=== PATIENT | male | born 1965 | race African-American/Black ===

== ENCOUNTER → 2017-10-26 12:50 | Outpatient (CLI) | payer MEDICARE, MEDICAID, SELFPAY ==
--- NOTE | 2017-10-26 13:00 | MR_ITS ---
MR cervical spine wo con HISTORY: Neck pain and left arm pain ORDERING PHYSICIAN: Morro Fortune MD PATIENT AGE: 52 years COMPARISON: None TECHNIQUE: Standard multiplanar multiecho sequences are performed without contrast. 3-D MIP and myelographic images are also rendered and reviewed FINDINGS: There is normal alignment. There is slight reversal of the cervical lordosis which may be due to patient positioning or muscle spasm. The craniocervical junction has an unremarkable appearance. C2-C3: Unremarkable. C3-C4: Degenerative disc disease with small central disc protrusion with prominent posterior longitudinal ligament and narrowing of the canal at 7 mm with mild impingement upon the anterior right aspect of the cord. There is mild left foraminal narrowing. C4-C5: Mild degenerative disc disease. There is bulging disc with a small right paracentral disc osteophyte complex with moderate narrowing of the right lateral recess and mild impingement upon the anterior right aspect of the cord. There is narrowing of the canal is 10 mm and there is mild bilateral foraminal narrowing. C5-C6: Degenerative disc disease with bulging disc and a small central disc protrusion/herniation abutting the anterior aspect of the cord with narrowing of the canal at 9 to 10 mm. This is associated with prominence of the posterior longitudinal ligament. C6-C7: Prominent posterior longitudinal ligament with small central disc protrusion with mild narrowing of the canal at 10 mm. C7-T1: Unremarkable. IMPRESSION: 1. Abnormal MRI of the cervical spine with cervical spondylosis with multilevel prominence of the posterior longitudinal ligament and disc protrusions with resultant narrowing of the canal and impingement upon the cord. 2. C3-C4: Degenerative disc disease with small central disc protrusion with prominent posterior longitudinal ligament and narrowing of the canal at 7 mm with mild impingement upon the anterior right aspect of the cord. There is mild left foraminal narrowing. 3. C4-C5: Mild degenerative disc disease. There is bulging disc with a small right paracentral disc osteophyte complex with moderate narrowing of the right lateral recess and mild impingement upon the anterior right aspect of the cord. There is narrowing of the canal is 10 mm and there is mild bilateral foraminal narrowing. 4. C5-C6: Degenerative disc disease with bulging disc and a small central disc protrusion/herniation abutting the anterior aspect of the cord with narrowing of the canal at 9 to 10 mm. This is associated with prominence of the posterior longitudinal ligament. 5. C6-C7: Prominent posterior longitudinal ligament with small central disc protrusion with mild narrowing of the canal at 10 mm.
== END ==
PROVIDERS: Family Provider Emergency Medicine; PCP Emergency Medicine; Visit Provider Emergency Medicine
DX: M54.2 Cervicalgia (principal)
CPT/HCPCS: 72141

== ENCOUNTER → 2017-11-04 11:34 | Outpatient (REF) | payer MEDICARE, MEDICAID, SELFPAY ==
[2017-11-04 13:10] LABS: Amphetamine/Metha Screen,Urine Negative ng/mL (<1000); Barbiturates Screen,Urine Negative ng/mL (<200); Benzodiazepines Screen,Urine Negative ng/mL (200); Cannabinoid Screen,Urine Negative ng/mL (<50); Cocaine Screen,Urine Negative ng/g (<300); Methadone Screen,Urine Negative ng/mL (<300); Opiate Screen,Urine Positive ng/mL (<300); Phencyclidine Screen,Urine Negative ng/mL (<25)
== END ==
LOC: LAB 11:34
PROVIDERS: Visit Provider Emergency Medicine
DX: Z79.899 Other long term (current) drug therapy (principal)
CPT/HCPCS: 80305

== ENCOUNTER → 2017-11-14 08:57 | Outpatient (POV) | payer MEDICARE, MEDICAID, SELFPAY ==
[2017-11-14 09:30] VITALS: BP 129/78; PULSE 82; RESP 16; TEMP 36.1; O2SAT 98; BMI 36.1
--- NOTE | 2017-11-14 10:26 | HMH.PMCON ---
Assessment and Plan (1) Lumbosacral radiculopathy due to degenerative joint disease of spine Current visit: Yes Status: Chronic Category: Medical Code(s): M47.27 - Other spondylosis with radiculopathy, lumbosacral region (2) Degenerative joint disease (DJD) of lumbar spine Current visit: Yes Status: Chronic Qualifiers: Spinal osteoarthritis complication: with radiculopathy Qualified Code(s): M47.26 - Other spondylosis with radiculopathy, lumbar region Category: Medical Code(s): M47.816 - Spondylosis without myelopathy or radiculopathy, lumbar region - Assessment and plan all Dx Assessment and Plan for all problems:: We have offered lumbar epidural steroid injections. Patient is not interested in any interventional therapy. He is afraid of injections and is going to think about it and let us know. Follow-up with him on a as needed basis. We will not prescribe him any oral narcotics at this time. HPI - Data of Consult Patient: known to practice within the last 3 years Consult date: 11/14/17 Requesting Physician: Jatin Davila MD Primary Care Provider: Morro Fortune MD Family Provider: Morro Fortune MD - Consult Narrative Reason for consult: Back pain with lumbar radicular symptoms History of present illness: Mr. Reeves is a 52 year old male who we previously saw in the pain clinic in July 2015. At that time he had low back pain radiating to both hips and down his legs. We did offer him injections at that time and he did not return to our clinic. He again has low back pain radiating down both legs. His MRI from June 2017 shows degenerative changes with bulging disc at L2-L3, L3-L4, L4-L5 and L5-S1. It is thought that he may benefit from lumbar epidural steroid injections again. I have talked to the patient about pursuing these injections and again he is afraid of not wishing to pursue injections at this time. Pain score is a 9 out of 10. Patient has not tried physical therapy recently. CC: Jatin Davila MD [facility] History Medical History: Reports:: Diabetes Mellitus Type 2, Hyperlipidemia, Hypertension Denies:: Cancer, Diabetes Mellitus Type 1, Internal Pacemaker, MRSA Other Surgeries: No: Pacemaker Amputation: Yes (2nd and 3rd toes on lft foot) Fractures: No - *Social History Educational Level: Completed High School Smoking Status: Current every day smoker Tobacco Type: cigarettes # Packs/Day (cigarettes): 1 #Yrs smoked (if former smoker): 20 Alcohol Intake: never Occupational Status: disabled Housing: house Household Members: none - Psychiatric History Expresses thoughts of harming self/others: None Suicide Plan Description: No Plan *Family Hx:: Stroke, Heart Attack, Hypertension, Diabetes Review of Systems - Review of Systems Review of systems:: pertinent systems reviewed and negative unless documented below - *Musculoskeletal Reports joint pain, Reports back pain, Reports radiating pain into limb, Reports stiffness, Reports tingling - *Neurologic Reports radiating pain Meds Home Medications Medication Instructions Recorded Confirmed Type aspirin 81 mg tablet,delayed 81 mg PO QDAY 11/04/17 History release atorvastatin 80 mg tablet 80 mg PO QDAY 11/04/17 History budesonide-formoterol HFA 160 2 puff INHALATION Q12H 11/04/17 History mcg-4.5 mcg/actuation aerosol inhaler bupropion HCl 75 mg tablet 75 mg PO BID tab 11/04/17 History clopidogrel 75 mg tablet 75 mg PO ONCE 11/04/17 History fenofibrate micronized 134 mg 134 mg PO ONCE 11/04/17 History capsule furosemide 40 mg tablet 60 mg PO BID tab 11/04/17 History hydroxyzine pamoate 25 mg capsule 25 mg PO QHS PRN cap 11/04/17 History insulin lispro protamine-lispro See Label Instructions SUB-Q BID 11/04/17 History 100 unit/mL (75-25) subcutaneous ml susp potassium chloride ER 20 mEq 20 meq PO BID 11/04/17 History tablet,extended release tiotropium bromide 18 mcg ca
--- NOTE | 2017-11-14 10:29 | P.CONS_ITS ---
Assessment and Plan (1) Lumbosacral radiculopathy due to degenerative joint disease of spine Current visit: Yes Status: Chronic Category: Medical Code(s): M47.27 - Other spondylosis with radiculopathy, lumbosacral region (2) Degenerative joint disease (DJD) of lumbar spine Current visit: Yes Status: Chronic Qualifiers: Spinal osteoarthritis complication: with radiculopathy Qualified Code(s): M47.26 - Other spondylosis with radiculopathy, lumbar region Category: Medical Code(s): M47.816 - Spondylosis without myelopathy or radiculopathy, lumbar region - Assessment and plan all Dx Assessment and Plan for all problems:: We have offered lumbar epidural steroid injections. Patient is not interested in any interventional therapy. He is afraid of injections and is going to think about it and let us know. Follow-up with him on a as needed basis. We will not prescribe him any oral narcotics at this time. HPI - Data of Consult Patient: known to practice within the last 3 years Consult date: 11/14/17 Requesting Physician: Jatin Davila MD Primary Care Provider: Morro Fortune MD Family Provider: Morro Fortune MD - Consult Narrative Reason for consult: Back pain with lumbar radicular symptoms History of present illness: Mr. Reeves is a 52 year old male who we previously saw in the pain clinic in July 2015. At that time he had low back pain radiating to both hips and down his legs. We did offer him injections at that time and he did not return to our clinic. He again has low back pain radiating down both legs. His MRI from June 2017 shows degenerative changes with bulging disc at L2-L3, L3-L4 , L4-L5 and L5-S1. It is thought that he may benefit from lumbar epidural steroid injections again. I have talked to the patient about pursuing these injections and again he is afraid of not wishing to pursue injections at this time. Pain score is a 9 out of 10. Patient has not tried physical therapy recently. CC: Jatin Davila MD [facility] History Medical History: Reports:: Diabetes Mellitus Type 2, Hyperlipidemia, Hypertension Denies:: Cancer, Diabetes Mellitus Type 1, Internal Pacemaker, MRSA Other Surgeries: No: Pacemaker Amputation: Yes (2nd and 3rd toes on lft foot) Fractures: No - *Social History Educational Level: Completed High School Smoking Status: Current every day smoker Tobacco Type: cigarettes # Packs/Day (cigarettes): 1 #Yrs smoked (if former smoker): 20 Alcohol Intake: never Occupational Status: disabled Housing: house Household Members: none - Psychiatric History Expresses thoughts of harming self/others: None Suicide Plan Description: No Plan *Family Hx:: Stroke, Heart Attack, Hypertension, Diabetes Review of Systems - Review of Systems Review of systems:: pertinent systems reviewed and negative unless documented below - *Musculoskeletal Reports joint pain, Reports back pain, Reports radiating pain into limb, Reports stiffness, Reports tingling - *Neurologic Reports radiating pain Meds Home Medications Medication Instructions Recorded Confirmed Type aspirin 81 mg tablet,delayed 81 mg PO QDAY 11/04/17 History release atorvastatin 80 mg tablet 80 mg PO QDAY 11/04/17 History budesonide-formoterol HFA 160 2 puff INHALATION Q12H 11/04/17 History mcg-4.5 mcg/actuation aerosol inhaler bupropion HCl 75 mg tablet 75 mg PO BID tab 11/04/17 History clopidogrel 75 mg tablet 75 mg PO ONCE 11/04/17 Hi
== END ==
PROVIDERS: Family Provider Emergency Medicine; PCP Emergency Medicine; Visit Provider Anesthesiology
DX: M47.27 Other spondylosis with radiculopathy, lumbosacral region (principal); M47.26 Other spondylosis with radiculopathy, lumbar region
CPT/HCPCS: 99202

== ENCOUNTER 2017-11-16 11:43 | Emergency (ER) | payer MEDICARE, MEDICAID, SELFPAY ==
[2017-11-16 11:47] VITALS: BP 178/110; PULSE 80; RESP 24; TEMP 36.5; O2SAT 97; BMI 36.5
--- NOTE | 2017-11-16 12:29 | HMH.EDGENADL ---
ED Disposition Clinical Impression: Cervical radiculopathy Disposition: Home, Self-Care Condition on Discharge: Fair Instructions: DI for Cervical Radiculopathy Additional Instructions: Continue Lortab for pain. Take Mobic as prescribed. See Dr. Fortune in his office on 11/18/17 at 1 PM. Prescriptions: Meloxicam [Mobic 7.5mg Tab] 7.5 mg PO BID #6 tab Referrals: Morro Fortune MD [Primary Care Provider] - - Critical Care Critical Care Time: No Attestation: On 11/16/17, the high probability of a clinically significant, sudden or life threatening deterioration of the following system(s) required my full and direct attention, intervention and personal management. The time I documented below is in addition to time spent performing reported procedures but includes the following listed in this critical care notation. Medical Decision Making Vital Signs: 11/16/17 11:47 Temperature 97.7 F Temperature Source Oral Pulse Rate [Right Brachial] 80 Respiratory Rate 24 Blood Pressure [Right Arm] 178/110 Blood Pressure Mean [Right Arm] 132 Blood Pressure Source [Right Arm] Automatic Cuff Blood Pressure Position [Right Arm] Sitting 02 Sat by Pulse Oximetry 97 Oxygen Delivery Method Room Air - Marcial Inquiry Pt receiving controlled substance: No Marcial was queried for this patient: Yes Reference #:: [id number] Comment: 16 rxs. last rx 90 norco on 11/04/17. Medical Decision Making Narrative: 12:45 PM: Discussed with Dr. Fortune. He requests that the patient be started on Mobic for the next 2 days and he will see the patient in his office at 1 PM on Tuesday, 2 days from now. Patient informed of this. Dr. Fortune does not want to change his pain medications at this time. General Adult HPI - General Chief complaint: PAIN Stated complaint: left shoulder pain Mode of Arrival: Ambulatory Limitations: Physical Limitations Description of Symptoms (Recalled from ER Triage Doc. by RN): left arm pain with decrease of ROM - History of Present Illness HPI narrative: Patient complains of pain from the left side of his neck down to his left elbow for 6 months. It is a constant pain, it worsens when he moves his neck, particularly extending it or tilting it to the left. He denies numbness or weakness of the arms. He has been seeing Dr. Fortune. He says he has a referral to a neurosurgeon to be seen on 12/08/17. He says he has had an MRI. He also has chronic low back pain. He is on Lortab 5 mg 3 times a day, but says it is not helping. He is also on gabapentin. He says Dr. Fortune does not want him on steroids because of his diabetes. He did not call Dr. Fortune today, says he just came straight to the emergency room. - Related Data Home Medications Medication Instructions Recorded Confirmed aspirin 81 mg tablet,delayed 81 mg PO QDAY 11/04/17 release atorvastatin 80 mg tablet 80 mg PO QDAY 11/04/17 budesonide-formoterol HFA 160 2 puff INHALATION Q12H 11/04/17 mcg-4.5 mcg/actuation aerosol inhaler bupropion HCl 75 mg tablet 75 mg PO BID tab 11/04/17 clopidogrel 75 mg tablet 75 mg PO ONCE 11/04/17 fenofibrate micronized 134 mg 134 mg PO ONCE 11/04/17 capsule furosemide 40 mg tablet 60 mg PO BID tab 11/04/17 hydroxyzine pamoate 25 mg capsule 25 mg PO QHS PRN cap 11/04/17 insulin lispro protamine-lispro See Label Instructions SUB-Q BID 11/04/17 100 unit/mL (75-25) subcutaneous ml susp potassium chloride ER 20 mEq 20 meq PO BID 11/04/17 tablet,extended release tiotropium bromide 18 mcg capsule 1 cap INHALATION QDAY 11/04/17 with inhalation device Previous Rx's Medication Instructions Recorded benzonatate 100 mg capsule 100 mg PO TID PRN 10 Days #30 cap 11/04/17 gabapentin 800 mg tablet 800 mg PO TID 30 Days #90 tab 11/04/17 hydrocodone 5 mg-acetaminophen 325 1 tab PO BID 30 Days #60 tab 11/04/17 mg tablet Meloxicam [Mobic 7.5mg Tab] 7.5 mg PO BID #6 tab 11/16/17
[2017-11-16 12:51] VITALS: BP 172/88; PULSE 81; RESP 16; O2SAT 98
[2017-11-16 12:54] VITALS: BP 172/88; PULSE 82; O2SAT 97
== END 2017-11-16 13:00 | disposition home or self-care (01) ==
PROVIDERS: Emergency Provider Emergency Medicine; Family Provider Emergency Medicine; PCP Emergency Medicine
DX: M54.12 Radiculopathy, cervical region (principal); E11.9 Type 2 diabetes mellitus without complications; Z79.02 Long term (current) use of antithrombotics/antiplatelets; Z79.82 Long term (current) use of aspirin; Z79.4 Long term (current) use of insulin; Z79.899 Other long term (current) drug therapy; E78.5 Hyperlipidemia, unspecified; I10 Essential (primary) hypertension; Z89.422 Acquired absence of other left toe(s); F17.210 Nicotine dependence, cigarettes, uncomplicated
CPT/HCPCS: 99282

== ENCOUNTER 2017-12-02 11:08 | Emergency (ER) | payer MEDICARE, MEDICAID, SELFPAY ==
[2017-12-02 11:15] VITALS: BP 154/74; PULSE 83; RESP 16; TEMP 37.2; O2SAT 98; BMI 39.9
--- NOTE | 2017-12-02 11:31 | HMH.EDGENADL ---
ED Disposition Clinical Impression: Neck pain, Thyromegaly Disposition: Home, Self-Care Condition on Discharge: Good Instructions: DI for Neck Pain Additional Instructions: Follow-up with Dr. Fortune in the office for further evaluation and treatment. Referrals: Morro Fortune MD [Primary Care Provider] - - Critical Care Critical Care Time: No Attestation: On 12/02/17, the high probability of a clinically significant, sudden or life threatening deterioration of the following system(s) required my full and direct attention, intervention and personal management. The time I documented below is in addition to time spent performing reported procedures but includes the following listed in this critical care notation. Medical Decision Making Vital Signs: 12/02/17 11:15 Temperature 99.0 F Temperature Source Oral Pulse Rate [Right] 83 Respiratory Rate 16 Blood Pressure [Right Arm] 154/74 Blood Pressure Mean [Right Arm] 100 Blood Pressure Source [Right Arm] Automatic Cuff Blood Pressure Position [Right Arm] Supine 02 Sat by Pulse Oximetry 98 Oxygen Delivery Method Room Air - CT Data CT Scan: Other (Neck) Time Received: 12:[address] Reviewed: Yes: I have viewed the radiologist's interpretation Findings Narrative: Mild prominence of the adenoids. No obvious adenopathy or abscess. Thyromegaly. - Marcial Inquiry Pt receiving controlled substance: No Medical Decision Making Narrative: 11:50 AM: Discussed with Dr. Fortune. The patient has poor renal function. The patient also refuses an IV. He requests that the patient have a noncontrast CT scan of his neck soft tissue to evaluate for mass. He also request that I checked to see if Dr. Dumont can see the patient in specialty clinic today. I spoke with Dr. Dumont, he says he cannot fit him in today but will see him next week. General Adult HPI - General Chief complaint: Neck Pain/Injury Stated complaint: 11/30/17 Tong sent for cat scan swelling neck Mode of Arrival: Ambulatory Limitations: Physical Limitations Description of Symptoms (Recalled from ER Triage Doc. by RN): neck and left arm pain from a pain from a pinched nerve. Dr. Fortune advised pt to come to er for xrays - History of Present Illness HPI narrative: The patient states that he has been sent to the emergency department by Dr. Fortune to get a CT scan of his neck. He says that he saw him in the office a couple of days ago and was told to come to the emergency room, but could not make it until today. He says he has been having pain in his neck going down his left arm for months, tingling of his left index finger and thumb for a week or so. He is seeing a specialist about cervical disc disease, but now also has a sensation of a mass in his neck and trouble swallowing for more than a week. No fever. Dr. Fortune was concerned about a soft tissue mass. - Related Data Home Medications Medication Instructions Recorded Confirmed aspirin 81 mg tablet,delayed 81 mg PO QDAY 11/04/17 release atorvastatin 80 mg tablet 80 mg PO QDAY 11/04/17 budesonide-formoterol HFA 160 2 puff INHALATION Q12H 11/04/17 mcg-4.5 mcg/actuation aerosol inhaler bupropion HCl 75 mg tablet 75 mg PO BID tab 11/04/17 clopidogrel 75 mg tablet 75 mg PO ONCE 11/04/17 fenofibrate micronized 134 mg 134 mg PO ONCE 11/04/17 capsule furosemide 40 mg tablet 60 mg PO BID tab 11/04/17 hydroxyzine pamoate 25 mg capsule 25 mg PO QHS PRN cap 11/04/17 insulin lispro protamine-lispro See Label Instructions SUB-Q BID 11/04/17 100 unit/mL (75-25) subcutaneous ml susp potassium chloride ER 20 mEq 20 meq PO BID 11/04/17 tablet,extended release tiotropium bromide 18 mcg capsule 1 cap INHALATION QDAY 11/04/17 with inhalation device Previous Rx's Medication Instructions Recorded gabapentin 800 mg tablet 800 mg PO TID 30 Days #90 tab 11/04/17 Meloxicam [Mobic 7.5mg Tab] 7.5 mg PO BID #6 tab
--- NOTE | 2017-12-02 11:50 | CT_ITS ---
CT soft tissue neck wo con INDICATION: Probable swallowing, neck pain, difficulty swallowing ITS.REASON: r/o mass, sensation of swelling, trouble swallowin ORDERING PHYSICIAN: Dennis Osborne MD PATIENT AGE: 52 years COMPARISON: None TECHNIQUE: Axial images are obtained without contrast. Sagittal and coronal reformatted images are reviewed as well. FINDINGS: There is mild prominence of the soft tissues at the nasopharyngeal region and adenoid area. No focal mass apparent. No abnormal fluid collection. No evidence of cervical adenopathy. The thyroid gland is slightly enlarged left more so than right with the left lobe measuring 6 x 2.4 cm in the right lobe measuring 5.5 x 2 cm. The epiglottis and glottic region are unremarkable. Submandibular glands and parotid glands have an unremarkable appearance. Mild spondylosis of the cervical spine. Upper thoracic images show centrilobular emphysema IMPRESSION: 1. Mild prominence of the adenoids in the soft tissues in the nasopharyngeal region. Consider direct visualization. Further evaluation could be obtained with contrast clinically warranted. 2. No obvious adenopathy or abscess 3. Thyromegaly 4. Centrilobular emphysematous change
[2017-12-02 13:14] VITALS: BP 152/75; PULSE 82; RESP 18; TEMP 36.7; O2SAT 98
== END 2017-12-02 13:15 | disposition home or self-care (01) ==
PROVIDERS: Emergency Provider Emergency Medicine; Family Provider Emergency Medicine; PCP Emergency Medicine
DX: M54.2 Cervicalgia (principal); E01.0 Iodine-deficiency related diffuse (endemic) goiter; E11.9 Type 2 diabetes mellitus without complications; Z79.4 Long term (current) use of insulin; I10 Essential (primary) hypertension; Z95.1 Presence of aortocoronary bypass graft; F17.210 Nicotine dependence, cigarettes, uncomplicated
CPT/HCPCS: 70490; 99281; 99291

== ENCOUNTER → 2017-12-08 14:01 | Outpatient (POV) | payer MEDICARE, MEDICAID, SELFPAY | PROVIDERS: Family Provider Emergency Medicine; PCP Emergency Medicine; Visit Provider Neurological Surgery | DX: Z00.00 Encounter for general adult medical examination without abnormal findings (principal) ==

== ENCOUNTER 2017-12-23 10:30 | Outpatient (RCR) | payer MEDICARE, MEDICAID, SELFPAY ==
--- NOTE | 2017-12-23 11:08 | HMH.PTOPEV ---
Rehab Outpatient Evaluation Rehab OP Evaluation Start: 12/14/17 10:37 Freq: Status: Active Protocol: Document 12/14/17 10:38 RASHID (Rec: 12/14/17 10:59 RASHID [id number]) Electronically Signed By Charlie Rasheed, PT 12/14/17 10:38 Outpatient Therapy Subjective History Subjective History Pt reports insidious onset neck pain beginning in 2017, L > R sided neck pain with intermittent radicular s/ s from L shoulder area to L hand. Pt reports pain, N&T, and weakness in L UE. Chief Complaint Pain Stiff Paresthesia Weakness Symptom Type Ache Throb Sharp Dull Stabbing Burning Numbness Tingling Symptoms Relieved By Rest/Positioning Symptoms Aggravated By Physical Activity Lifting Prior Functional Limitations None Current Functional Limitations Reaching Lifting Housework Driving Symptom Description Constant but Variable Level of pain today (0-10) 9 Pain scale - at its best (0-10) 5 Pain scale - at its worst (0-10) 10 Cervical Eval Palpation Cervical Muscles L Cervical Paraspinal L CT Junction L Upper Trapezius Cervical/Thoracic Palpation Findings Tenderness Posture Head/C-Spine Posture Sitting Position Flexed Head/C-Spine Posture Standing Position Flexed Flexibility Deficits Upper Trapezius Muscle Length (L) Moderate Tightness Scalene Group Muscle Length (L) Moderate Tightness Passive Joint Mobility Cervical PIVM Dec: R C3/4 L C3/4 R C4/5 L C4/5 R C5/6 L C5/6 R C6/7 L C6/7 WNL: R OA L OA R AA L AA R C2/3 L C2/3 R C7/T1
== END 2017-12-23 10:31 | disposition home or self-care (01) ==
LOC: PT 10:30
PROVIDERS: Family Provider Emergency Medicine; PCP Emergency Medicine; Visit Provider Neurological Surgery
DX: M54.2 Cervicalgia (principal)
CPT/HCPCS: 97010; 97012; 97014; 97035; 97110; G0283

== ENCOUNTER → 2018-01-02 15:15 | Outpatient (REF) | payer MEDICARE, MEDICAID, SELFPAY ==
[2018-01-02 19:16] LABS: Amphetamine/Metha Screen,Urine Negative ng/mL (<1000); Barbiturates Screen,Urine Negative ng/mL (<200); Benzodiazepines Screen,Urine Negative ng/mL (200); Cannabinoid Screen,Urine Positive ng/mL (<50); Cocaine Screen,Urine Negative ng/g (<300); Methadone Screen,Urine Negative ng/mL (<300); Opiate Screen,Urine Negative ng/mL (<300); Phencyclidine Screen,Urine Negative ng/mL (<25)
== END ==
LOC: LAB 15:15
PROVIDERS: Visit Provider Emergency Medicine
DX: M47.27 Other spondylosis with radiculopathy, lumbosacral region (principal); Z79.899 Other long term (current) drug therapy
CPT/HCPCS: 80305

== ENCOUNTER 2018-01-08 14:39 | Emergency (ER) | payer MEDICARE, MEDICAID, SELFPAY ==
[2018-01-08 14:46] VITALS: BP 130/84; PULSE 82; RESP 18; TEMP 37.6; O2SAT 95; BMI 40.3
--- NOTE | 2018-01-08 14:57 | XR_ITS ---
XR foot LT min 3V COMPARISON: Left foot 01/16/2017 HISTORY: Left foot pain, known diabetic TECHNIQUE: AP lateral and oblique views FINDINGS: There is been previous appendectomy dictation of the great toe and second toe and most of the third toe leaving only the base of the proximal phalanx in place. There is soft tissue swelling about the distal phalanx of the fourth toe but this was noted previously as well. There is no abnormal periosteal reaction. There is some mild soft tissue swelling of the forefoot especially along the volar aspect when compared to the previous study and possibly this could be due to cellulitis. IMPRESSION: Postsurgical changes in this known diabetic mild diffuse soft tissue swelling of the forefoot noted.
--- NOTE | 2018-01-08 14:58 | HMH.EDLOEX ---
ED Disposition Clinical Impression: Diabetic foot, Renal insufficiency Disposition: Home, Self-Care Condition on Discharge: Fair Instructions: DI for Skin Abscess Additional Instructions: 1- rest. 2- elevate. 3- start abx. 4- see Dr Luis tomorrow at 7:30 am . Prescriptions: Ciprofloxacin HCl [Ciprofloxacin 750mg Tab] 750 mg PO BID #14 tab Clindamycin HCl [Clindamycin 300mg Cap] 300 mg PO Q8 #21 cap levoFLOXacin [Levaquin 500mg tab] 500 mg PO DAILY #15 tab Referrals: Morro Fortune MD [Primary Care Provider] - Claudia Clemente DPM [Physician] - - Critical Care Critical Care Time: No Attestation: On 01/08/18, the high probability of a clinically significant, sudden or life threatening deterioration of the following system(s) required my full and direct attention, intervention and personal management. The time I documented below is in addition to time spent performing reported procedures but includes the following listed in this critical care notation. Medical Decision Making - Marcial Inquiry Pt receiving controlled substance: No Marcial was queried for this patient: No Vital Signs: 01/08/18 14:46 Temperature 99.7 F H Temperature Source Oral Pulse Rate [Right Radial] 82 Respiratory Rate 18 Blood Pressure [Right Arm] 130/84 Blood Pressure Mean [Right Arm] 99 Blood Pressure Source [Right Arm] Automatic Cuff Blood Pressure Position [Right Arm] Sitting 02 Sat by Pulse Oximetry 95 Oxygen Delivery Method Room Air - Lab Data Lab Results 01/08/18 15:47: WBC 9.6, RBC 4.01 L, Hgb 11.9 L, Hct 37.3 L, MCV 93.0, MCH 29.6, MCHC 31.8, RDW 14.0, Plt Count 325, MPV 8.8, Neut % (Auto) 68.0, Lymph % (Auto) 22.4, [place] % (Auto) 6.2, Eos % (Auto) 3.1, Baso % (Auto) 0.3, Neut # (Auto) 6.6, Lymph # (Auto) 2.2, [place] # (Auto) 0.6, Eos # (Auto) 0.3, Baso # (Auto) 0.0 01/08/18 15:47: Sodium 140, Potassium 4.3, Chloride 105, Carbon Dioxide 27, Anion Gap 12.3, BUN 20 H, Creatinine 1.38 H, Estimated Creat Clear 102, Estimated GFR 54 L, Est GFR ( Amer) 66, Glucose 259 H, C-Reactive Protein 6.8 H Result diagrams: 01/08/18 15:47 01/08/18 15:47 Orders (Tests/Meds): ORDERS Category Date Time Status Wound Culture and Gram Stain Stat Micro 01/08/18 16:32 Ordered - Radiology Data #1 Image(s): Foot/Toes Image Reviewed: Yes I reviewed the patient's radiology image Preliminary Findings: Abnormal s/p amputation , no subcutaneous air, no FB. - Core Measures Clinical Trial Participant: No AMI core measures followed: No Medical Decision Narrative: The patient remained stable, underwent labs close to his base line, x ray of foot free of of sc air. I called Dr Luis his human factors scientist and discussed his follow up care. Dr. Roland recommended wound culture, start Cipro 750 twice daily and clindamycin 300 3 times daily. She will see him at 7:30 in the morning 01/09/18. Lower Extremity Injury HPI - General Chief Complaint: Skin/Abscess/Foreign Body Stated Complaint: pt had 3 toes removes now is draining Time Seen by Provider: 01/08/18 15:50 Mode of Arrival: Ambulatory Limitations: No Limitations Description of Symptoms (Recalled from ER Triage Doc. by RN): LEFT GREAT TOE, SECOND AND THIRD TOE AMPUTATED ONE YEAR AGO. TWO DAYS AGO AREA WHERE SECOND TWO WAS AMPUTATED STARTED TO SWELL AND TODAY THE AREA STARTED TO DRAIN. PT SEEN A DOCTOR A MONTH AGO WHO CUT AN AREA OF THE SKIN OFF. 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 He developed swelling 2 days ago of the left foot and he kept it elevated and the swelling came down. Today while he was in the store the skin broke loose and a purulent discharge started oozing. Patient came to the ED for evaluation. He denies fever or chills abnormal swelling shortness of breath chest pain nausea or vomiting. He
--- NOTE | 2018-01-08 15:01 | ED_ITS ---
ED Disposition Clinical Impression: Diabetic foot, Renal insufficiency Disposition: Home, Self-Care Condition on Discharge: Fair Instructions: DI for Skin Abscess Additional Instructions: 1- rest. 2- elevate. 3- start abx. 4- see Dr Luis tomorrow at 7:30 am . Prescriptions: Ciprofloxacin HCl [Ciprofloxacin 750mg Tab] 750 mg PO BID #14 tab Clindamycin HCl [Clindamycin 300mg Cap] 300 mg PO Q8 #21 cap levoFLOXacin [Levaquin 500mg tab] 500 mg PO DAILY #15 tab Referrals: Morro Fortune MD [Primary Care Provider] - Claudia Clemente DPM [Physician] - - Critical Care Critical Care Time: No Attestation: On 01/08/18, the high probability of a clinically significant, sudden or life threatening deterioration of the following system(s) required my full and direct attention, intervention and personal management. The time I documented below is in addition to time spent performing reported procedures but includes the following listed in this critical care notation. Medical Decision Making - Marcial Inquiry Pt receiving controlled substance: No Marcial was queried for this patient: No Vital Signs: 01/08/18 14:46 Temperature 99.7 F H Temperature Source Oral Pulse Rate [Right Radial] 82 Respiratory Rate 18 Blood Pressure [Right Arm] 130/84 Blood Pressure Mean [Right Arm] 99 Blood Pressure Source [Right Arm] Automatic Cuff Blood Pressure Position [Right Arm] Sitting 02 Sat by Pulse Oximetry 95 Oxygen Delivery Method Room Air - Lab Data Lab Results 01/08/18 15:47: WBC 9.6, RBC 4.01 L, Hgb 11.9 L, Hct 37.3 L, MCV 93.0, MCH 29.6 , MCHC 31.8, RDW 14.0, Plt Count 325, MPV 8.8, Neut % (Auto) 68.0, Lymph % (Auto ) 22.4, [place] % (Auto) 6.2, Eos % (Auto) 3.1, Baso % (Auto) 0.3, Neut # (Auto) 6.6, Lymph # (Auto) 2.2, [place] # (Auto) 0.6, Eos # (Auto) 0.3, Baso # (Auto) 0.0 01/08/18 15:47: Sodium 140, Potassium 4.3, Chloride 105, Carbon Dioxide 27, Anion Gap 12.3, BUN 20 H, Creatinine 1.38 H, Estimated Creat Clear 102, Estimated GFR 54 L, Est GFR ( Amer) 66, Glucose 259 H, C-Reactive Protein 6.8 H Result diagrams: 01/08/18 15:47 01/08/18 15:47 Orders (Tests/Meds): ORDERS Category Date Time Status Wound Culture and Gram Stain Stat Micro 01/08/18 16:32 Ordered - Radiology Data #1 Image(s): Foot/Toes Image Reviewed: Yes I reviewed the patient's radiology image Preliminary Findings: Abnormal s/p amputation , no subcutaneous air, no FB. - Core Measures Clinical Trial Participant: No AMI core measures followed: No Medical Decision Narrative: The patient remained stable, underwent labs close to his base line, x ray of foot free of of sc air. I called Dr Luis his cashier checker and discussed his follow up care. Dr. Roland recommended wound culture, start Cipro 750 twice daily and clindamycin 300 3 times daily. She will see him at 7:30 in the morning . Lower Extremity Injury HPI - General Chief Complaint: Skin/Abscess/Foreign Body Stated Complaint: pt had 3 toes removes now is draining Time Seen by Provider: 01/08/18 15:50 Mode of Arrival: Ambulatory Limitations: No Limitations Description of Symptoms (Recalled from ER Triage Doc. by RN): LEFT GREAT TOE, SECOND AND THIRD TOE AMPUTATED ONE YEAR AGO. TWO DAYS AGO AREA WHERE SECOND TWO WAS AMPUTATED STARTED TO SWELL AND TODAY THE AREA STARTED TO DRAIN. PT SEE
[2018-01-08 16:02] LABS: Basophils % 0.3 % (0.1-2.0); Eosinophils # 0.3 K/mm3 (0.0-0.4); Eosinophils % 3.1 % (0.1-12.0); Hematocrit 37.3 % (42.0-52.0); Hemoglobin 11.9 g/dL (14.1-18.0); Lymphocytes # 2.2 K/mm3 (0.7-4.5); Lymphocytes % 22.4 K/mm3 (10-50); Mean Corpuscular HGB Conc 31.8 g/dL (31.8-35.4); Mean Corpuscular Hemoglobin 29.6 pg (27.0-31.2); Mean Platelet Volume 8.8 fl (7.4-10.4); Monocytes # 0.6 K/mm3 (0.1-1.0); Monocytes % 6.2 % (1.7-9.3); Neutrophils # 6.6 K/mm3 (1.8-7.8); Platelet Count 325 K/mm3 (142-424); Red Blood Count 4.01 M/mm3 (4.60-6.20); White Blood Count 9.6 K/mm3 (4.8-10.8)
[2018-01-08 16:05] LABS: Anion Gap 12.3 mEq/L (5-15); Blood Urea Nitrogen 20 mg/dL (7-18); C-Reactive Protein 6.8 mg/L (0.0-0.9); Carbon Dioxide 27 mmol/L (21.0-32.0); Chloride 105 mmol/L (98-107); Creatinine Clearance Estimated 102 mL/min (0-300); Creatinine,Serum 1.38 mg/dL (0.70-1.30); Estimated Glomerular Filt Rate 54 ml/min (>60); GFR (African American) 66 ML/MIN (>60); Glucose 259 mg/dL (74-106); Potassium 4.3 mmoL/L (3.5-5.1); Sodium 140 mmol/L (136-145)
[2018-01-08 16:50] VITALS: BP 130/84; PULSE 82; RESP 18; TEMP 37.6; O2SAT 97
== END 2018-01-08 16:53 | disposition home or self-care (01) ==
PROVIDERS: Emergency Provider Emergency Medicine; Family Provider Emergency Medicine; PCP Emergency Medicine
DX: E10.621 Type 1 diabetes mellitus with foot ulcer (principal); E10.65 Type 1 diabetes mellitus with hyperglycemia; N28.9 Disorder of kidney and ureter, unspecified; Z79.82 Long term (current) use of aspirin; Z79.899 Other long term (current) drug therapy; Z79.4 Long term (current) use of insulin; F17.210 Nicotine dependence, cigarettes, uncomplicated; Z90.49 Acquired absence of other specified parts of digestive tract; I10 Essential (primary) hypertension; E78.5 Hyperlipidemia, unspecified
CPT/HCPCS: 73630; 80048; 85025; 86140; 87070; 87077; 87186; 87205; 99283

== ENCOUNTER → 2018-01-09 09:35 | Outpatient (REF) | payer MEDICARE, MEDICAID, SELFPAY | LOC: LAB 09:35 | PROVIDERS: Visit Provider Podiatrist | DX: E11.621 Type 2 diabetes mellitus with foot ulcer (principal); L97.529 Non-pressure chronic ulcer of other part of left foot with unspecified severity | CPT/HCPCS: 87070; 87077; 87186 ==

== ENCOUNTER → 2018-01-31 14:32 | Outpatient (REF) | payer MEDICARE, MEDICAID, SELFPAY ==
[2018-01-31 18:41] LABS: Amphetamine/Metha Screen,Urine Negative ng/mL (<1000); Barbiturates Screen,Urine Negative ng/mL (<200); Benzodiazepines Screen,Urine Negative ng/mL (200); Cannabinoid Screen,Urine Positive ng/mL (<50); Cocaine Screen,Urine Negative ng/g (<300); Methadone Screen,Urine Negative ng/mL (<300); Opiate Screen,Urine Negative ng/mL (<300); Phencyclidine Screen,Urine Negative ng/mL (<25)
== END ==
LOC: LAB 14:32
PROVIDERS: Visit Provider Emergency Medicine
DX: Z79.899 Other long term (current) drug therapy (principal)
CPT/HCPCS: 80305

== ENCOUNTER → 2018-02-28 15:21 | Outpatient (REF) | payer MEDICARE, MEDICAID, SELFPAY ==
[2018-02-28 17:46] LABS: Microscopic, Urine URINE MICROSCOPIC (MICROSCOPIC)
[2018-02-28 18:21] LABS: Basophils # 0.1 K/mm3 (0-0.2); Basophils % 0.9 % (0.1-2.0); Eosinophils # 0.2 K/mm3 (0.0-0.4); Eosinophils % 3.6 % (0.1-12.0); Hematocrit 40.1 % (42.0-52.0); Hemoglobin 12.7 g/dL (14.1-18.0); Lymphocytes # 2.9 K/mm3 (0.7-4.5); Lymphocytes % 44.4 K/mm3 (10-50); Mean Corpuscular HGB Conc 31.7 g/dL (31.8-35.4); Mean Corpuscular Hemoglobin 29.7 pg (27.0-31.2); Mean Corpuscular Volume 93.6 fl (80-94); Mean Platelet Volume 10.1 fl (7.4-10.4); Monocytes # 0.5 K/mm3 (0.1-1.0); Monocytes % 7.4 % (1.7-9.3); Neutrophils # 2.8 K/mm3 (1.8-7.8); Neutrophils % 43.7 % (37.0-80.0); Platelet Count 282 K/mm3 (142-424); Red Blood Count 4.28 M/mm3 (4.60-6.20); Red Cell Distribution Width 14.4 % (11.5-17.5); White Blood Count 6.5 K/mm3 (4.8-10.8)
[2018-02-28 20:02] LABS: Appearance,Urine CLEAR (Clear); Bilirubin,Urine Negative (Negative); Blood, Urine TRACE-L (Negative); Color,Urine YELLOW (Yellow); Glucose,Urine (UA) 1+ (Negative); Ketones,Urine Negative (Negative); Leukocyte Esterase,Urine TRACE (Negative); Nitrate,Urine Negative (Negative); PH,Urine 5.5 (5.0-8.5); Protein,Urine Negative (Negative); Specific Gravity, Urine 1.015 (1.005-1.030); Urobilinogen,Urine 0.2 EU/dl (0.2)
[2018-02-28 20:07] LABS: Alanine Aminotransferase 25 U/L (12-78); Albumin Level 3.7 gm/dL (3.4-5.0); Albumin/Globulin Ratio 1.1 (1.1-1.8); Alkaline Phosphatase 100 U/L (46-116); Amphetamine/Metha Screen,Urine Negative ng/mL (<1000); Anion Gap 13.4 mEq/L (5-15); Aspartate Amino Transferase 18 U/L (15-37); Barbiturates Screen,Urine Negative ng/mL (<200); Benzodiazepines Screen,Urine Negative ng/mL (200); Bilirubin,Total 0.3 mg/dL (0.2-1.0); Blood Urea Nitrogen 20 mg/dL (7-18); Calcium 9.6 mg/dL (8.5-10.1); Cannabinoid Screen,Urine Positive ng/mL (<50); Carbon Dioxide 30 mmol/L (21.0-32.0); Chloride 103 mmol/L (98-107); Cocaine Screen,Urine Negative ng/g (<300); Creatinine,Serum 1.31 mg/dL (0.70-1.30); Estimated Glomerular Filt Rate 58 ml/min (>60); GFR (African American) 70 ML/MIN (>60); Globulin 3.4 gm/dl (1.3-3.2); Glucose 256 mg/dL (74-106); Methadone Screen,Urine Negative ng/mL (<300); Opiate Screen,Urine Negative ng/mL (<300); Phencyclidine Screen,Urine Negative ng/mL (<25); Potassium 4.4 mmoL/L (3.5-5.1); Sodium 142 mmol/L (136-145); Total Protein,Serum 7.1 gm/dL (6.4-8.2)
[2018-02-28 20:08] LABS: Lipase 240 u/L (73-393)
[2018-02-28 20:43] LABS: Bacteria,Urine 2+ /lpf
== END ==
LOC: LAB 15:21
PROVIDERS: Visit Provider Emergency Medicine
DX: M47.27 Other spondylosis with radiculopathy, lumbosacral region (principal); M54.9 Dorsalgia, unspecified
CPT/HCPCS: 80053; 80305; 81001; 83690; 85025; 87086; 87088; 87186

== ENCOUNTER 2018-03-03 10:56 | Outpatient (CLI) | payer MEDICARE, MEDICAID, SELFPAY ==
[2018-03-03 11:40] VITALS: BP 113/65; PULSE 68; RESP 18; TEMP 36.7
--- NOTE | 2018-03-03 11:50 | SW/DCPLANNER ---
I have provided this patient with [employer] phone number.
== END 2018-03-03 11:50 | disposition home or self-care (01) ==
LOC: INF 10:58
PROVIDERS: PCP Emergency Medicine; Visit Provider Emergency Medicine
DX: N39.0 Urinary tract infection, site not specified (principal); B96.20 Unspecified Escherichia coli [E. coli] as the cause of diseases classified elsewhere; Z16.12 Extended spectrum beta lactamase (ESBL) resistance
CPT/HCPCS: 96372; J1335

== ENCOUNTER 2018-03-04 11:10 | Outpatient (CLI) | payer MEDICARE, MEDICAID, SELFPAY ==
[2018-03-04 11:38] VITALS: BP 96/46; PULSE 72; RESP 20; TEMP 36.4; O2SAT 97
== END 2018-03-04 11:36 | disposition home or self-care (01) ==
LOC: INF 11:12
PROVIDERS: Family Provider Emergency Medicine; PCP Emergency Medicine; Visit Provider Emergency Medicine
DX: N39.0 Urinary tract infection, site not specified (principal); B96.20 Unspecified Escherichia coli [E. coli] as the cause of diseases classified elsewhere; Z16.12 Extended spectrum beta lactamase (ESBL) resistance
CPT/HCPCS: 96372; J1335

== ENCOUNTER 2018-03-05 11:54 | Outpatient (CLI) | payer MEDICARE, MEDICAID, SELFPAY ==
[2018-03-05 12:08] VITALS: BP 131/76; PULSE 72; RESP 20; TEMP 36.9; O2SAT 98
== END 2018-03-05 12:21 | disposition home or self-care (01) ==
LOC: INF 11:55
PROVIDERS: Family Provider Emergency Medicine; PCP Emergency Medicine; Visit Provider Emergency Medicine
DX: N39.0 Urinary tract infection, site not specified (principal); B96.20 Unspecified Escherichia coli [E. coli] as the cause of diseases classified elsewhere; Z16.12 Extended spectrum beta lactamase (ESBL) resistance
CPT/HCPCS: 96372; J1335

== ENCOUNTER 2018-03-06 12:24 | Outpatient (CLI) | payer MEDICARE, MEDICAID, SELFPAY ==
[2018-03-06 12:55] VITALS: BP 123/70; PULSE 68; RESP 20; TEMP 37.1; O2SAT 96
[2018-03-06 13:10] VITALS: BP 122/70; PULSE 68; RESP 20; TEMP 36.9; O2SAT 98
== END 2018-03-06 13:10 | disposition home or self-care (01) ==
LOC: INF 12:24
PROVIDERS: Family Provider Emergency Medicine; PCP Emergency Medicine; Visit Provider Emergency Medicine
DX: N39.0 Urinary tract infection, site not specified (principal); B96.20 Unspecified Escherichia coli [E. coli] as the cause of diseases classified elsewhere; Z16.12 Extended spectrum beta lactamase (ESBL) resistance
CPT/HCPCS: 96372; J1335

== ENCOUNTER 2018-03-07 12:19 | Outpatient (CLI) | payer MEDICARE, MEDICAID, SELFPAY ==
[2018-03-07 12:15] VITALS: BP 122/70; PULSE 68; RESP 20; TEMP 36.9; O2SAT 96
[2018-03-07 12:30] VITALS: BP 125/70; PULSE 68; RESP 20; TEMP 36.7; O2SAT 96
== END 2018-03-07 12:30 | disposition home or self-care (01) ==
LOC: INF 12:19
PROVIDERS: Family Provider Emergency Medicine; PCP Emergency Medicine; Visit Provider Emergency Medicine
DX: N39.0 Urinary tract infection, site not specified (principal); B96.20 Unspecified Escherichia coli [E. coli] as the cause of diseases classified elsewhere; Z16.12 Extended spectrum beta lactamase (ESBL) resistance
CPT/HCPCS: 96372; J1335

== ENCOUNTER 2018-03-08 10:00 | Outpatient (RCR) | payer MEDICARE, MEDICAID, SELFPAY ==
--- NOTE | 2018-01-19 14:30 | HMH.PTOPWND ---
Rehab Outpt Wound Evaluation Rehab OP Wound Evaluation Start: 01/19/18 14:18 Freq: Status: Active Protocol: Document 01/19/18 14:19 PHODE[place]AH (Rec: 01/19/18 14:30 PHORNE [id number]) Electronically Signed By Roly Quiroga, PT 01/19/18 14:19 Subjective/History History History Pt presents with c/o left foot DFU x ~ 1 wk. Pt has hx of left toes 1-3 amputated and he reports wound spontaneously appeared in that area where his 3rd toe should be. He reports hx of DM with complications. He currently reports no pain, but is tender to palpation. Wound Eval Wound Left Anterior Foot Wound Type Diabetic Foot Ulcer Is This a Chronic Wound No Wound Length (cm) 1.0 Wound Width (cm) 0.6 Wound Depth (cm) 1.3 Wound Bed Appearance White Necrotic Percentage of Slough (%) 100 Drainage Description Purulent Drainage Amount Small Drainage Odor Slight Odor Packing Type Specialty Absorptive Primary Dressing Silver Dressing Wound Secondary Dressing Type Composite Wound Debridement Method Sharps Forceps Wound Debridement Amount of Tissue Minimal Removed Wound Debridement Result Necrotic Tissue Remains Wound Problems/Impairments Impairments Problems/Impairmments Palpation Tenderness Impaired Gait Pattern Impaired Walking Wound Care Needs Subjective C/O Pain Impaired Self Care/Self Management Prognosis Rehab Potential Fair Clinical Impression Consistent with Diagnosis Yes Short Term Goals Number of Weeks 4 Decreased Palpation Tenderness Yes: to min Decrease Wound Area Yes: by 25% Increase Red Granulation Tissue % Yes: by 50% Chcf Goals Number of Weeks 8 Decreased Palpation Tenderness Yes: to none Decrease Wound Area Yes: by 75% Increase Red Granulation Tissue % Yes: by 100% Outpatient Therapy Plan of Care Treatment Plan May Include Therapeutic Exercise Including Home Yes Exercise Program Manual Therapy Techniques Yes Orthotics/Bracing/Splinting Yes Wound Care Yes Eval/Re-Eval Yes
== END 2018-03-08 10:01 | disposition home or self-care (01) ==
LOC: PT 10:00
PROVIDERS: Family Provider Emergency Medicine; PCP Emergency Medicine; Visit Provider Podiatrist
DX: E11.621 Type 2 diabetes mellitus with foot ulcer (principal); L97.525 Non-pressure chronic ulcer of other part of left foot with muscle involvement without evidence of necrosis
CPT/HCPCS: 97162; 97597

== ENCOUNTER 2018-03-08 11:20 | Outpatient (CLI) | payer MEDICARE, MEDICAID, SELFPAY ==
[2018-03-08 11:40] VITALS: BP 147/82; PULSE 68; RESP 18; O2SAT 100
== END 2018-03-08 12:00 | disposition home or self-care (01) ==
LOC: INF 11:20
PROVIDERS: Family Provider Emergency Medicine; PCP Emergency Medicine; Visit Provider Emergency Medicine
DX: N39.0 Urinary tract infection, site not specified (principal); B96.20 Unspecified Escherichia coli [E. coli] as the cause of diseases classified elsewhere; Z16.12 Extended spectrum beta lactamase (ESBL) resistance
CPT/HCPCS: 96372; J1335

== ENCOUNTER 2018-03-09 11:45 | Outpatient (CLI) | payer MEDICARE, MEDICAID, SELFPAY ==
[2018-03-09 12:25] VITALS: BP 130/73; PULSE 72; RESP 20; TEMP 36.7; O2SAT 100
== END 2018-03-09 12:38 | disposition home or self-care (01) ==
LOC: INF 11:59
PROVIDERS: Family Provider Emergency Medicine; PCP Emergency Medicine; Visit Provider Emergency Medicine
DX: N39.0 Urinary tract infection, site not specified (principal); B96.20 Unspecified Escherichia coli [E. coli] as the cause of diseases classified elsewhere; Z16.12 Extended spectrum beta lactamase (ESBL) resistance
CPT/HCPCS: 96372; J1335

== ENCOUNTER 2018-03-10 12:30 | Outpatient (CLI) | payer MEDICARE, MEDICAID, SELFPAY ==
[2018-03-10 13:15] VITALS: BP 129/69; PULSE 66; RESP 18; TEMP 36.3; O2SAT 98
== END 2018-03-10 13:30 | disposition home or self-care (01) ==
LOC: INF 12:48
PROVIDERS: Family Provider Emergency Medicine; PCP Emergency Medicine; Visit Provider Emergency Medicine
DX: N39.0 Urinary tract infection, site not specified (principal); B96.20 Unspecified Escherichia coli [E. coli] as the cause of diseases classified elsewhere; Z16.12 Extended spectrum beta lactamase (ESBL) resistance
CPT/HCPCS: 96372; J1335

== ENCOUNTER → 2018-03-11 11:38 | Outpatient (CLI) | payer MEDICARE, MEDICAID, SELFPAY ==
[2018-03-11 11:57] VITALS: BP 123/73; PULSE 72; RESP 18; TEMP 36.7; O2SAT 97; BMI 39.9
== END ==
PROVIDERS: Family Provider Emergency Medicine; PCP Emergency Medicine; Visit Provider Emergency Medicine
DX: N39.0 Urinary tract infection, site not specified (principal); B96.20 Unspecified Escherichia coli [E. coli] as the cause of diseases classified elsewhere; Z16.12 Extended spectrum beta lactamase (ESBL) resistance
CPT/HCPCS: 96372; G0463; J1335

== ENCOUNTER → 2018-03-12 12:03 | Outpatient (CLI) | payer MEDICARE, MEDICAID, SELFPAY ==
[2018-03-12 12:03] VITALS: BP 114/89; PULSE 70; RESP 18; TEMP 36.9; O2SAT 100
[2018-03-12 12:24] VITALS: BP 116/99; PULSE 68; RESP 18; TEMP 37; O2SAT 100; BMI 39.9
== END ==
PROVIDERS: Family Provider Emergency Medicine; PCP Emergency Medicine; Visit Provider Emergency Medicine
DX: N39.0 Urinary tract infection, site not specified (principal); B96.20 Unspecified Escherichia coli [E. coli] as the cause of diseases classified elsewhere; Z16.12 Extended spectrum beta lactamase (ESBL) resistance
CPT/HCPCS: 96372; G0463; J1335

== ENCOUNTER → 2018-03-21 14:21 | Outpatient (REF) | payer MEDICARE, MEDICAID, SELFPAY ==
[2018-03-21 18:56] LABS: Amphetamine/Metha Screen,Urine Negative ng/mL (<1000); Barbiturates Screen,Urine Negative ng/mL (<200); Benzodiazepines Screen,Urine Negative ng/mL (200); Cannabinoid Screen,Urine Positive ng/mL (<50); Cocaine Screen,Urine Negative ng/g (<300); Methadone Screen,Urine Negative ng/mL (<300); Opiate Screen,Urine Positive ng/mL (<300); Phencyclidine Screen,Urine Negative ng/mL (<25)
== END ==
LOC: LAB 14:21
PROVIDERS: Visit Provider Emergency Medicine
DX: M47.27 Other spondylosis with radiculopathy, lumbosacral region (principal); Z79.899 Other long term (current) drug therapy
CPT/HCPCS: 80305

== ENCOUNTER → 2018-06-20 10:41 | Outpatient (REF) | payer MEDICARE, MEDICAID, SELFPAY ==
[2018-06-20 17:08] LABS: Amphetamine/Metha Screen,Urine Negative ng/mL (<1000); Barbiturates Screen,Urine Negative ng/mL (<200); Benzodiazepines Screen,Urine Negative ng/mL (<200); Cannabinoid Screen,Urine Positive ng/mL (<50); Cocaine Screen,Urine Negative ng/mL (<300); Methadone Screen,Urine Negative ng/mL (<300); Opiate Screen,Urine Negative ng/mL (<300); Phencyclidine Screen,Urine Negative ng/mL (<25)
== END ==
LOC: LAB 10:41
PROVIDERS: Visit Provider Emergency Medicine
DX: M47.27 Other spondylosis with radiculopathy, lumbosacral region (principal)
CPT/HCPCS: 80305

== ENCOUNTER → 2018-06-23 09:57 | Outpatient (CLI) | payer MEDICARE, MEDICAID, SELFPAY ==
--- NOTE | 2018-06-23 09:59 | CA_ITS ---
PROCEDURE: 2-D M-mode and color Doppler study INDICATIONS FOR THE TEST: Chest pain COPD Heart Murmur Tobacco Smoking+ Palpitations Fatigue Syncope Edema Hypertension Diabetes Mellitus Rheumatic Fever SOB+PHILLIPS Obesity Hyperlipidemia Family History HD Additional History PAD PATIENT INFORMATION HEIGHT: 66 WEIGHT:262 GENDER: Male B/P:140/82 2-D/M-MODE INTERPRETATION: 2-D MEASUREMENTS OBSERVED VALUES IN CMS Right Ventricular Dimension (RVDd) 2.7 Interventricular Septum (Thickness)(IVsd) 1.0 Left Ventricular Internal Dimensions(LVIDd) 5.4 Left Ventricular Posterior Wall (Thickness)(LVPWd) 0.9 Aortic Root 3.5 Aortic Cusp Separation 1.9 Left Atrial Dimensions (LAD) 4.6 2D 1. Left atrium is moderately enlarged, left ventricle is normal size, visually estimated ejection fraction approximately 40%, there is marked hypokinesis involving the inferior, inferobasal and posterolateral wall. 2. The right atrium and right ventricle are relatively normal size and function. 3. The aortic valve is minimally thickened and fibrosed. 4. The mitral and tricuspid valve leaflets are minimally thickened. 5. The pulmonic valve is poorly visualized. 6. No significant pericardial effusion noted. DOPPLER INTERROGATION: Doppler interrogation of the aortic, mitral and tricuspid valvular presence of moderate to severe mitral and mild tricuspid regurgitation, tricuspid regurgitation jet velocity is insufficient for calculation of the right ventricular systolic pressure, grade 2 diastolic dysfunction seen with tissue Doppler evidence of raised left atrial pressure. CONCLUSION: 1. Moderately enlarged left atrium, normal left ventricular size, visually estimated ejection fraction of 40% with multiple segmental wall motion abnormality described above, Doppler evidence of raised left atrial pressure. 2. Moderate to severe mitral and mild tricuspid regurgitation. 3. No significant pericardial effusion noted.
--- NOTE | 2018-06-23 09:59 | US_ITS ---
US Arterial Ankle Brachial Ind HISTORY: ITS.REASON:.. Current smoker. Diabetes. Hypertension. TIA. PVD. HISTORY of [place]. Peripheral stents left lower extremity. 3 digits of been amputated left foot including great toe. Bilateral claudication. Bilateral rest pain. TECHNIQUE: Segmental pressures obtained of both right and left leg. These are compared to brachial blood pressure to yield index at each level sampled including summary JOSELYN. The data sheets from the procedure are available in PACS FINDINGS Rest study only performed today No prior studies available for comparison. Blood pressures reported are in millimeters mercury. RIGHT LEG JOSELYN = 0.6. Right, TBI = 0.4. Brachial BP: 150 Thigh BP: BP 118 with index 0.7 Calf BP: BP 110, index 0.65 Ankle PT: BP 96, index 0.57 Ankle DP : BP 99 with index 0.59 Digit =BP 66 with index 0.39 Reflects atherosclerotic disease with moderate flow restriction throughout Right leg beginning iliac vessel, & becoming progressively more pronounced distally, and becoming more severe towards right toe. LEFT LEG JOSELYN = 0.7 Brachial BPD: 168 Thigh BP: BP 120 with index 0.71 Calf BP: BP 147 index 0.88 Ankle PT:BP 117 index 0.7 Ankle DP: BP 96 index 0.57 Digit = great toe amputated Reflects Mild/moderate flow restriction to the level of ankle IMPRESSION: Diminished pulses & abnormal waveforms bilaterally. RIGHT LEG JOSELYN = 0.6. Right, TBI = 0.4. LEFT LEG JOSELYN = 0.7
== END ==
PROVIDERS: Family Provider Emergency Medicine; PCP Emergency Medicine; Visit Provider Internal Medicine
DX: I73.9 Peripheral vascular disease, unspecified (principal); R94.31 Abnormal electrocardiogram [ECG] [EKG]
CPT/HCPCS: 93306; 93922

== ENCOUNTER → 2018-06-27 16:27 | Outpatient (CLI) | payer MEDICARE, MEDICAID, SELFPAY ==
[2018-06-27 16:43] LABS: Basophils % 0.7 % (0.1-2.0); Eosinophils # 0.3 K/mm3 (0.0-0.4); Eosinophils % 5.2 % (0.1-12.0); Hematocrit 42.7 % (42.0-52.0); Hemoglobin 13.8 g/dL (14.1-18.0); Lymphocytes # 2.8 K/mm3 (0.7-4.5); Lymphocytes % 45.8 K/mm3 (10-50); Mean Corpuscular HGB Conc 32.4 g/dL (31.8-35.4); Mean Corpuscular Hemoglobin 29.4 pg (27.0-31.2); Mean Corpuscular Volume 90.5 fl (80-94); Mean Platelet Volume 8.9 fl (7.4-10.4); Monocytes # 0.3 K/mm3 (0.1-1.0); Monocytes % 5.5 % (1.7-9.3); Neutrophils # 2.6 K/mm3 (1.8-7.8); Neutrophils % 42.7 % (37.0-80.0); Platelet Count 254 K/mm3 (142-424); Red Blood Count 4.71 M/mm3 (4.60-6.20); Red Cell Distribution Width 15.7 % (11.5-17.5)
[2018-06-27 17:41] LABS: Hemoglobin A1C 9.1 % (0.0-7.0)
[2018-06-27 18:05] LABS: Alanine Aminotransferase 32 U/L (12-78); Albumin Level 3.9 gm/dL (3.4-5.0); Alkaline Phosphatase 69 U/L (46-116); Anion Gap 12.6 mEq/L (5-15); Aspartate Amino Transferase 17 U/L (15-37); Bilirubin,Direct 0.1 mg/dL (0.0-0.2); Bilirubin,Indirect 0.4 mg/dL (0.0-0.9); Bilirubin,Total 0.5 mg/dL (0.2-1.0); Blood Urea Nitrogen 18 mg/dL (7-18); Calcium 9.8 mg/dL (8.5-10.1); Carbon Dioxide 31 mmol/L (21.0-32.0); Chloride 107 mmol/L (98-107); Creatinine,Serum 1.53 mg/dL (0.70-1.30); Estimated Glomerular Filt Rate 48 ml/min (>60); Free T4 (Free Thyroxine) 1.07 ng/dl (0.76-1.46); GFR (African American) 58 ML/MIN (>60); Glucose 80 mg/dL (74-106); Potassium 4.6 mmoL/L (3.5-5.1); Sodium 146 mmol/L (136-145); Thyroid Stimulating Hormone 0.92 uIU/ml (0.358-3.740); Total Protein,Serum 7.3 gm/dL (6.4-8.2)
== END ==
PROVIDERS: Family Provider Emergency Medicine; PCP Emergency Medicine; Visit Provider Internal Medicine
DX: E11.9 Type 2 diabetes mellitus without complications (principal); E78.5 Hyperlipidemia, unspecified; I25.10 Atherosclerotic heart disease of native coronary artery without angina pectoris; I34.0 Nonrheumatic mitral (valve) insufficiency; I42.9 Cardiomyopathy, unspecified; I73.9 Peripheral vascular disease, unspecified; R06.02 Shortness of breath; Z79.4 Long term (current) use of insulin
CPT/HCPCS: 36415; 80048; 80076; 83036; 84439; 84443; 85025

== ENCOUNTER → 2018-07-18 10:24 | Outpatient (REF) | payer MEDICARE, MEDICAID, SELFPAY ==
[2018-07-19 19:56] LABS: Amphetamine/Metha Screen,Urine Negative ng/mL (<1000); Barbiturates Screen,Urine Negative ng/mL (<200); Benzodiazepines Screen,Urine Negative ng/mL (<200); Cannabinoid Screen,Urine Positive ng/mL (<50); Cocaine Screen,Urine Negative ng/mL (<300); Methadone Screen,Urine Negative ng/mL (<300); Opiate Screen,Urine Negative ng/mL (<300); Phencyclidine Screen,Urine Negative ng/mL (<25)
[2018-08-02 10:49] LABS: Opiates Negative
== END ==
LOC: LAB 10:24
PROVIDERS: Visit Provider Emergency Medicine
DX: Z79.899 Other long term (current) drug therapy (principal)
CPT/HCPCS: 80305; 80361; 80365; G0480

== ENCOUNTER → 2018-07-19 10:24 | Outpatient (CLI) | payer MEDICARE, MEDICAID, SELFPAY | PROVIDERS: Visit Provider Emergency Medicine | DX: Z79.899 Other long term (current) drug therapy (principal) ==

== ENCOUNTER → 2018-08-07 14:06 | Outpatient (REF) | payer MEDICARE, MEDICAID, SELFPAY ==
[2018-08-07 19:07] LABS: Amphetamine/Metha Screen,Urine Negative ng/mL (<1000); Barbiturates Screen,Urine Negative ng/mL (<200); Benzodiazepines Screen,Urine Negative ng/mL (<200); Cannabinoid Screen,Urine Positive ng/mL (<50); Cocaine Screen,Urine Negative ng/mL (<300); Methadone Screen,Urine Negative ng/mL (<300); Opiate Screen,Urine Negative ng/mL (<300); Phencyclidine Screen,Urine Negative ng/mL (<25)
== END ==
LOC: LAB 14:06
PROVIDERS: Visit Provider Emergency Medicine
DX: Z79.899 Other long term (current) drug therapy
CPT/HCPCS: 80305

== ENCOUNTER → 2018-09-05 18:24 | Outpatient (CLI) | payer MEDICARE, MEDICAID, SELFPAY ==
[2018-09-05 20:49] LABS: Amphetamine/Metha Screen,Urine Negative ng/mL (<1000); Barbiturates Screen,Urine Negative ng/mL (<200); Benzodiazepines Screen,Urine Negative ng/mL (<200); Cannabinoid Screen,Urine Positive ng/mL (<50); Cocaine Screen,Urine Negative ng/mL (<300); Methadone Screen,Urine Negative ng/mL (<300); Opiate Screen,Urine Negative ng/mL (<300); Phencyclidine Screen,Urine Negative ng/mL (<25)
== END ==
PROVIDERS: Visit Provider Emergency Medicine
DX: M47.27 Other spondylosis with radiculopathy, lumbosacral region (principal)
CPT/HCPCS: 80305

== ENCOUNTER → 2018-10-03 17:12 | Outpatient (CLI) | payer MEDICARE, MEDICAID, SELFPAY ==
[2018-10-03 18:24] LABS: Amphetamine/Metha Screen,Urine Negative ng/mL (<1000); Barbiturates Screen,Urine Negative ng/mL (<200); Benzodiazepines Screen,Urine Negative ng/mL (<200); Cannabinoid Screen,Urine Positive ng/mL (<50); Cocaine Screen,Urine Negative ng/mL (<300); Methadone Screen,Urine Negative ng/mL (<300); Opiate Screen,Urine Negative ng/mL (<300); Phencyclidine Screen,Urine Negative ng/mL (<25)
[2018-10-10 21:08] LABS: Oxycodone (GC/MS) 209 ng/mL (Cutoff=100)
[2018-10-11 06:16] LABS: Opiates Negative (Cutoff=100); Oxymorphone (GC/MS) 210 ng/mL (Cutoff=100)
== END ==
PROVIDERS: Visit Provider Emergency Medicine
DX: M47.27 Other spondylosis with radiculopathy, lumbosacral region (principal); Z79.899 Other long term (current) drug therapy
CPT/HCPCS: 80305; 80361; 80365; G0480

== ENCOUNTER → 2018-10-10 12:16 | Outpatient (CLI) | payer MEDICARE, MEDICAID, SELFPAY ==
--- NOTE | 2018-10-10 12:18 | XR_ITS ---
XR pelvis 1-2V, XR sacrum coccyx min 2V Ordering Physician: Morro Fortune MD Patient Age: 53 years: Male HISTORY: ITS.REASON: back pain Patient fell landing on back.. Back and hip pain. Pelvic and sacral pain. TECHNIQUE: 1 AP pelvis radiograph single view 2.. AP and lateral sacrum including coccyx COMPARISON CT abdomen pelvis reconstruction from June 2016 and December 2014 === : SACRUM AND COCCYX. The sacrum appears intact. The coccyx is a slight dorsal tilt at its junction with the sacrum but I suspect this is a stable feature since June 2016. Doubt disruption here but if pain persist here you may warrant follow-up. The coccyx one of most variable bones in the body and can be difficult to evaluate and clinical correlation focal tenderness to be important in evaluating. . . Question some mild soft tissue swelling towards but generous overlying soft tissues doubt this region. The frontal view the sacrum and coccyx appears stable- again noted in the slight relative lucency at the left aspect the coccyx, similar to prior CT studies. ========= AP PELVIS No acute findings and pelvis. Appears intact SI joints appear intact. The sacrum unremarkable. AP view the hips unremarkable. The iliac bone intact. IMPRESSION: 1. AP pelvis intact. 2. Sacrum intact. 3. Coccyx believe is most likely intact as well . I believe slight posterior at the base the coccyx is seen on prior CT studies of abdomen/pelvis . But if If focal pain persist, consider follow-up
== END ==
PROVIDERS: PCP Emergency Medicine; Visit Provider Emergency Medicine
DX: M54.9 Dorsalgia, unspecified (principal)
CPT/HCPCS: 72170; 72220

== ENCOUNTER → 2018-11-03 19:38 | Outpatient (CLI) | payer MEDICARE, MEDICAID, SELFPAY ==
[2018-11-03 20:36] LABS: Amphetamine/Metha Screen,Urine Negative ng/mL (<1000); Barbiturates Screen,Urine Negative ng/mL (<200); Benzodiazepines Screen,Urine Negative ng/mL (<200); Cannabinoid Screen,Urine Positive ng/mL (<50); Cocaine Screen,Urine Negative ng/mL (<300); Methadone Screen,Urine Negative ng/mL (<300); Opiate Screen,Urine Negative ng/mL (<300); Phencyclidine Screen,Urine Negative ng/mL (<25)
[2018-11-10 17:14] LABS: Opiates Negative (Cutoff=100)
== END ==
PROVIDERS: Visit Provider Emergency Medicine
DX: M47.27 Other spondylosis with radiculopathy, lumbosacral region (principal)
CPT/HCPCS: 80305; 80361; 80365; G0480

== ENCOUNTER 2018-12-05 10:36 | Inpatient (IN) ==
--- NOTE | 2018-12-05 10:44 | Consult Report ---
History of Present Illness Consult date: 12/05/18 Requesting physician: Morro Fortune Consult reason: congestive heart failure, shortness of breath Chief complaint: SOA, cough Additional Medical History:: 1. Coronary artery disease A. Cardiac catheterization 08-26-2015, severe two-vessel coronary artery disease with an occluded proximal circumflex artery and occluded ostial dominant RIGHT coronary artery. Mild to moderate proximal left anterior descending disease and moderate mid left anterior descending disease. Systolic congestive heart failure with ejection fraction of 35 percent. Normal renal arteries. Complex severe infrarenal abdominal aortic eccentric occlusion creating a 40 mm transverse stenotic gradient from proximal to distal. Severe pulmonary hypertension. The plan was to treat medically for the time being with strong emphasis on risk factor modification. B. Ischemic cardiomyopathy, medical therapy. C. Echocardiogram 07/2015, EF of 30-40% with moderate global hypokinesis of the LEFT ventricle. D. Echo, 11/2018, moderate LAE, mildly dilated LV with conc LVH and LVEF of 30% with marked hypo to akinesis of the basal septum, inferior, inferobasal and inferolateral wall. Mildly enlarged RA/RV. Calcified AV without stenosis. Moderate to severe MR, mild TR. E. Cardiac cath, 06/2018, ANGIOGRAPHIC RESULTS: 1. The left main artery normal 2. The left anterior descending artery has very proximal 20% stenosis followed by additional 20% stenosis followed by a mid vessel 60-70% stenosis and a large LAD which supplies both the right coronary artery and the circumflex artery 3. The circumflex artery is non dominant and has is proximally occluded and fills via left to left collaterals from the LAD 4. The right coronary artery is dominant proximally occluded and fills via left to right collaterals via the LAD 5. The [place] ventriculogram reveals reduced ejection fraction 4045% with large inferior wall severe hypokinesis 6. The left ventricular end-diastolic pressure 35 mmHg HEMODYNAMICS: Pulmonary artery occlusion pressure is 35 mm Hg. Pulmonary arterial pressure is 70/40 mm Hg. Right atrial pressure is 15 mm Hg. SATURATIONS: PA is 70 %. RA is 71 %. IMPRESSION: 1. Chronic occlusion of the right coronary artery and circumflex artery which is filled via collaterals from the LAD. Mid LAD stenosis which is a left main artery equivalent given it supplies both the right coronary artery and circumflex artery via collaterals. 2. Successful stenting of the mid LAD/left main artery, severe disease reduced to 0% with 1 drug-eluting stent 3. Reduced ejection fraction with large regional wall motion abnormality 4. Severe biventricular congestive heart failure as evidenced by severely elevated pulmonary artery occlusion pressure 5. Severe pulmonary hypertension 6. Elevated right atrial pressure PLAN: 1. Aspirin Plavix 2. Very aggressive risk factor modification 3. LDL less than 55 4. Cardiac rehabilitation 5. Avoidance of tobacco products 6. Patient requires higher doses of diuretics for the decompensated biventricular congestive heart failure with severe pulmonary hypertension 2. Peripheral arterial disease A. Drug-eluting stent placed to anterior tibialis trunk on November 24, 2015. Dual antiplatelet therapy recommended. B. 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 JUAN to Left SFA and popliteal artery. Single vessel runoff with small vessel disease noted. 06/2018 3. Diabetes mellitus, on insulin with poor control. 4. Hypertension 5. Hyperlipidemia 6. Obesity 7. Tobacco dependence 8. Chronic kidney disease stage 2-3 9. Osteomyelitis of LEFT foot. November 2015 History of present illness: 53-year-old black male with history of ischemic cardiomyopathy and systolic congestive heart failure was in the office earlier today for follow-up after ER visit yesterday. Patient was diagnosed with influenza type A with symptomatic treatment due to length of symptoms. Patient had an echocardiogram due to known history of cardiomyopathy and mildly elevated BNP with evidence of CHF on chest x-ray. Echocardiogram showed ejection fraction has decreased from previous reading of ejection fraction of 40%. Patient continues to complain of shortness of breath with minimal activity today and it was decided that hospitalization would be best for treatment of his decompensated biventricular CHF. Dr. Fortune has agreed to admit with Cardiology consult. [facility] History Medical History: Reports:: Diabetes Mellitus Type 2, Hyperlipidemia, Hypertens ion, Myocardial Infarction Denies:: Cancer, Diabetes Mellitus Type 1, Internal Pacemaker, MRSA, Seizures Have you ever received a pneumonia vaccine?: No Have you received a flu vaccine this season?: No Other Medical History: Reports: Arthritis Laterality Cases: Left: Other Other Surgeries: Yes: Angiogram, Angioplasty, Appendectomy, Cardiac Catheterization, Cardiac Surgery, Coronary Stent, Other. No: Pacemaker Amputation: No Fractures: No - *Social History Smoking Status: Former smoker Tobacco Type: cigarettes # Packs/Day (cigarettes): 1 #Yrs smoked (if former smoker): 1 Alcohol Intake: never Alcohol Intake Frequency:: other Substance Use Type: denies use Occupational Status: unemployed, disabled Housing: house Household Members: none Family Hx:: Unable to obtain Meds Home Medications Medication Instructions Recorded Confirmed Type aspirin 81 mg tablet,delayed 81 mg PO QDAY 11/04/17 12/05/18 History release hydroxyzine pamoate 25 mg capsule 25 mg PO QHS PRN cap 11/04/17 12/05/18 History tiotropium bromide 18 mcg capsule 1 cap INHALATION QDAY 11/04/17 12/05/18 History with inhalation device insulin lispro protamine-lispro See Rx Instructions SUB-Q BID #10 09/04/18 12/05/18 Rx 100 unit/mL (75-25) subcutaneous ml susp albuterol sulfate HFA 90 2 puff INHALATION Q4-6H PRN #18 g 09/05/18 12/05/18 Rx mcg/actuation aerosol inhaler atorvastatin 80 mg tablet 80 mg PO QDAY #90 tab 09/05/18 12/05/18 Rx budesonide-formoterol HFA 160 2 puff INHALATION Q12H #6 g 09/05/18 12/05/18 Rx mcg-4.5 mcg/actuation aerosol inhaler fenofibrate micronized 134 mg 134 mg PO DAILY #90 cap 09/05/18 12/05/18 Rx capsule lisinopril 5 mg tablet 5 mg PO DAILY #90 tab 09/05/18 12/05/18 Rx oxycodone-acetaminophen 5 mg-325 1 tab PO TID PRN #90 tab 11/03/18 12/05/18 Rx mg tablet potassium chloride ER 20 mEq See Rx Instructions PO DAILY #60 11/06/18 12/05/18 Rx tablet,extended release tab dextromethorphan-guaifenesin 10 1 tab-cap PO Q8H PRN 30 Days #90 11/22/18 12/05/18 Rx mg-200 mg capsule cap furosemide 40 mg tablet 60 mg PO DAILY tab 11/22/18 12/05/18 History bupropion HCl 75 mg tablet 75 mg PO BID #60 tab 11/27/18 12/05/18 Rx BUN test strips 0 strip .ROUTE .MEDSUPPLY 12/04/18 12/05/18 History Blood-Glucose Meter [Blood Glucose 0 dsk .ROUTE .MEDSUPPLY 12/04/18 12/05/18 History Meter] Carvedilol [Carvedilol 25mg Tab] 25 mg PO BID 12/04/18 12/05/18 History Clopidogrel Bisulfate [Plavix 75mg 75 mg PO DAILY 12/04/18 12/05/18 History Tab] Fluticasone/Vilanterol [Breo 1 inh INHALATION Q24H 12/04/18 12/05/18 History Ellipta] Gabapentin [Neurontin 800mg Tab] 800 mg PO TID 12/04/18 12/05/18 History Medical Supply, Miscellaneous 0 strip .ROUTE .MEDSUPPLY 12/04/18 12/05/18 History [Blood Pressure Cuff] Meloxicam 7.5 mg PO DAILY 12/04/18 12/05/18 History Oseltamivir Phosphate [Tamiflu 75 mg PO BID #10 cap 12/04/18 12/05/18 Rx 75mg Capsule] Syringe-Needle,Insulin,0.5 ml [Pro 0 syr .ROUTE .MEDSUPPLY 12/04/18 12/05/18 History Comfort Insulin Syringe] Allergies Allergy/AdvReac Type Severity Reaction Status Date / Time No Known Allergies Allergy Verified 12/05/18 09:28 Review of Systems - *Cardiovascular Reports shortness of breath, Reports shortness of breath with activity, Reports generalized swelling, Denies chest pain - *Respiratory Reports change in phlegm color, Reports cough, Reports shortness of breath, Reports shortness of breath with activity - *Gastrointestinal Denies abdominal pain, Denies loose stools - *Genitourinary Denies blood in urine - *Musculoskeletal Reports joint pain, Reports back pain - *Neurologic Denies abnormal walking, Denies abnormal speech, Denies lack of coordination Exam - *Routine HEENT Exam Head: Present: normocephalic Eye: Present: EOMI, PERRL ENT: Present: mucous membranes moist - *Routine Neck Exam Present: supple. Absent: JVD, carotid bruit - *Routine Respiratory Exam Present: decreased breath sounds, rhonchi, diminished air movement. Absent: accessory muscle use, rales, wheezes - *Routine Cardiovascular Exam Present: RRR. Absent: murmur, gallop, rubs - *Routine Abdominal Exam Present: soft. Absent: tenderness, distended, guarding - *Routine Extremities Exam Present: edema. Absent: calf tenderness - *Routine Neurological Exam Present: alert, oriented X3, moving all extremities Assessment and Plan (1) Influenza due to influenza virus, type A, human Status: Acute Category: Medical Code(s): J10.1 - Influenza due to other identified influenza virus with other respiratory manifestations (2) Heart failure, chronic, with acute decompensation Status: Acute Category: Medical Code(s): I50.9 - Heart failure, unspecified (3) Biventricular congestive heart failure Status: Acute Category: Medical Code(s): I50.82 - Biventricular heart failure (4) Ischemic cardiomyopathy Status: Acute Category: Medical Code(s): I25.5 - Ischemic cardiomyopathy (5) Obesity (BMI 30-39.9) Status: Acute Category: Medical Code(s): E66.9 - Obesity, unspecified (6) CAD (coronary artery disease) Status: Chronic Qualifiers: Coronary Disease-Associated Artery/Lesion type: hoh artery [place] vs. transplanted heart: hoh heart Associated angina: without angina Qualified Code(s): I25.10 - Atherosclerotic heart disease of hoh coronary artery without angina pectoris Category: Medical Code(s): I25.10 - Atherosclerotic heart disease of hoh coronary artery without angina pectoris (7) Diabetes Status: Chronic Qualifiers: Diabetes mellitus type: type 2 Diabetes mellitus intermediate accountant insulin use: with fpc use Diabetes mellitus complication status: without complication Qualified Code(s): E11.9 - Type 2 diabetes mellitus without complications; Z79 .4 - technician terminal and repeater (current) use of insulin Category: Medical Code(s): E11.9 - Type 2 diabetes mellitus without complications (8) HLD (hyperlipidemia) Status: Chronic Qualifiers: Hyperlipidemia type: other hyperlipidemia Qualified Code(s): E78.49 - Other hyperlipidemia; E78.4 - Other hyperlipidemia Category: Medical Code(s): E78.5 - Hyperlipidemia, unspecified (9) HTN (hypertension) Status: Chronic Qualifiers: Hypertension type: essential hypertension Qualified Code(s): I10 - Essential (primary) hypertension Category: Medical Code(s): I10 - Essential (primary) hypertension - Assessment and plan all Dx Assessment and Plan for all problems:: 1. Continue aspirin and Plavix for CAD/PAD 2. Continue carvedilol and lisinopril for cardiomyopathy 3. Switch Lasix to IV for heart failure management. 4. Continue to monitor renal status. 5. Serial cardiac enzymes with consideration for repeat cath if indicated.
--- NOTE | 2018-12-05 14:52 | Pharmacy Consult Notes ---
[facility] Pharmacy VTE Monitoring - Patient Demographics Admission date: 12/05/18 Report Date: 12/05/18 Time: 14:52 Allergies/Adverse Reactions: Patient Allergies No Known Allergies Allergy (Verified 12/05/18 09:28) Height: 1.65 m Weight: 117.282 kg - VTE Risk Was VTE Risk Assessment Performed: Yes VTE Score: 6 VTE Risk Level: Moderate Risk Clinical Trial Participant: No - Prophylaxis VTE Prophylaxis Ordered?: Yes Types of VTE Prophylaxis: TEDS Knee High
[2018-12-06 06:22] LABS: Basophils % 0.3 % (0.1-2.0); Eosinophils # 0.2 K/mm3 (0.0-0.4); Eosinophils % 3.3 % (0.1-12.0); Hematocrit 40.1 % (42.0-52.0); Hemoglobin 12.8 g/dL (14.1-18.0); Lymphocytes # 2.3 K/mm3 (0.7-4.5); Lymphocytes % 35.1 % (10-50); Mean Corpuscular HGB Conc 31.8 g/dL (31.8-35.4); Mean Corpuscular Hemoglobin 29.1 pg (27.0-31.2); Mean Corpuscular Volume 91.5 fl (80-94); Monocytes # 0.4 K/mm3 (0.1-1.0); Monocytes % 6.6 % (1.7-9.3); Neutrophils # 3.5 K/mm3 (1.8-7.8); Neutrophils % 54.7 % (37.0-80.0); Platelet Count 220 K/mm3 (142-424); Red Blood Count 4.38 M/mm3 (4.60-6.20); Red Cell Distribution Width 16.1 % (11.5-17.5); White Blood Count 6.4 K/mm3 (4.8-10.8)
[2018-12-06 06:34] LABS: Anion Gap 11.7 mEq/L (5-15); Calcium 9.1 mg/dL (8.5-10.1); Potassium 3.7 mmoL/L (3.5-5.1)
[2018-12-06 09:24] LABS: Albumin Level 3.3 gm/dL (3.4-5.0); Bilirubin,Direct 0.2 mg/dL (0.0-0.2); Bilirubin,Indirect 0.4 mg/dL (0.0-0.9); Bilirubin,Total 0.6 mg/dL (0.2-1.0); Chol/HDL Ratio 3.7 (1-3.5); Total Protein,Serum 6.9 gm/dL (6.4-8.2)
--- NOTE | 2018-12-06 11:34 | Progress Note ---
Subjective Date: 12/06/18 Time: 10:20 Principal diagnosis: CHF Interval history: This is a 53-year-old gentleman who was admitted to the hospital with an acute exacerbation of his congestive heart failure. The patient also tested positive for influenza. He did have a mildly elevated troponin as well. The patient denies any chest pain or pressure this morning. He did diurese very well overnight. He had a -2 L fluid balance. He states that his symptoms are much b rachell now. He denies any chest pain or pressure and he denies any shortness of breath. He denies any fever chills nausea vomiting diarrhea PND orthopnea. The patient stated he is ready to go home. As mentioned above he did have a slight bump in his troponin. However this is most likely demand ischemia from his acute exacerbation of his systolic congestive heart failure. He is influenza A positive. The patient not going to be taken to the [employer] Super[employer] at this time. We will let him recover from his flu and see how his symptoms do with diuresis. If he does have recurrence of any chest pain or worsening shortness of breath we will consider repeating left heart cath on an outpatient basis. Exam Vital signs and Labs for Last 24 Hours: Temp Pulse Resp BP Pulse Ox 98.3 F 84 18 139/86 99 12/06/18 08:00 12/06/18 08:00 12/06/18 08:00 12/06/18 08:00 12/06/18 08:00 Laboratory Results - last 24 hr 12/05/18 11:25: Total Creatine Kinase 402 H, CK-MB (CK-2) 5.1 H, CK-MB (CK-2) Rel Index 1.3, Troponin I 0.16 H 12/05/18 16:31: POC Glucose 129 H 12/05/18 20:22: POC Glucose 139 H 12/06/18 05:07: Total Bilirubin 0.6, Direct Bilirubin 0.2, Indirect Bilirubin 0.4, AST 17, ALT 59, Alkaline Phosphatase 72, Total Protein 6.9, Albumin 3.3 L, Triglycerides 68, Cholesterol 132 L, LDL Cholesterol 82, VLDL Cholesterol 14, HDL Cholesterol 36, Cholesterol/HDL Ratio 3.7 H 12/06/18 05:55: POC Glucose 145 H 12/06/18 06:07: Sodium 140, Potassium 3.7, Chloride 106, Carbon Dioxide 26, Anion Gap 11.7, BUN 15, Creatinine 1.16, Estimated Creat Clear 65, Estimated GFR 66, Est GFR ( Amer) 80, Glucose 153 H, Calcium 9.1 12/06/18 06:07: WBC 6.4, RBC 4.38 L, Hgb 12.8 L, Hct 40.1 L, MCV 91.5, MCH 29.1, MCHC 31.8, RDW 16.1, Plt Count 220, MPV 9.0, Neut % (Auto) 54.7, Lymph % (Auto) 35.1, Thayer % (Auto) 6.6, Eos % (Auto) 3.3, Baso % (Auto) 0.3, Neut # (Auto) 3.5, Lymph # (Auto) 2.3, Thayer # (Auto) 0.4, Eos # (Auto) 0.2, Baso # (Auto) 0.0 12/06/18 06:07: Magnesium 1.6 12/06/18 10:55: POC Glucose 178 H I & O for Last 24 hours: Intake & Output 12/03/18 12/04/18 12/05/18 12/06/18 23:59 23:59 23:59 23:59 Intake Total 447 / 447 575 / 575 Output Total 2700 / 2700 1350 / 1350 Balance -2253 / -2253 -775 / -775 Weight 258 lb 9 oz 257 lb - *Routine HEENT Exam Head: Present: normocephalic, atraumatic Eye: Present: EOMI, PERRL ENT: Present: mucous membranes moist - *Routine Neck Exam Present: supple, full ROM, normal carotid upstroke. Absent: JVD, carotid bruit, lymphadenopathy - *Routine Respiratory Exam Present: decreased breath sounds, CTA bilaterally - *Routine Cardiovascular Exam Present: RRR, Normal S1, Normal S2. Absent: murmur, gallop - *Routine Abdominal Exam Present: soft, normoactive bowel sounds. Absent: tenderness - *Routine Extremities Exam Present: full ROM, pulses intact, normal capillary refill. Absent: cyanosis, clubbing, edema - *Routine Skin Exam Present: warm. Absent: erythema, rash - *Routine Neurological Exam Present: alert, oriented X3, CN II-XII intact. Absent: sensory deficit, motor deficit - Detailed Eye Exam Eyelids: Left normal inspection Progress Note: A&P (1) Influenza due to influenza virus, type A, human Status: Acute Current Visit: No (2) Heart failure, chronic, with acute decompensation Status: Acute Current Visit: No (3) Biventricular congestive heart failure Status: Acute Current Visit: No (4) Ischemic cardiomyopathy Status: Acute Current Visit: No (5) Obesity (BMI 30-39.9) Status: Acute Current Visit: No (6) CAD (coronary artery disease) Status: Chronic Current Visit: No (7) Diabetes Status: Chronic Current Visit: No (8) HLD (hyperlipidemia) Status: Chronic Current Visit: No (9) HTN (hypertension) Status: Chronic Current Visit: No (10) Elevated troponin Status: Acute Current Visit: Yes Assessment and Plan for All Diagnoses:: Plan: 1. The patient was admitted to the hospital with an acute exacerbation of his systolic congestive heart failure and biventricular heart failure. The patient was diuresed with IV Lasix. His symptoms have significantly improved. We will change his Lasix over to oral Lasix 80 mg p.o. daily for continued diuresis. The patient was -2 L fluid balance overnight and is feeling much better today. 2. The patient did test positive for influenza A. This is being managed per his primary care provider. 3. The patient did have an elevated troponin. This is most likely from demand ischemia from his decompensated congestive heart failure and influenza A. No plans for invasive cardiac testing at this time. 4. We will continue with oral diuresis on an outpatient basis. Once he is recovered from the influenza A, if he continues to have symptoms then we may consider repeating his heart cath on an outpatient basis. However at this time his symptoms are much better he just needs continued diuresis. 5. His coronary artery disease is likely stable. This is likely demand ischemia. 6. His blood sugar is acceptable. 7. His LDL goal is less than 55. 8. The patient is aggressive control of his diabetes. Will defer this to his primary care provider. 9. No further recommendations at this time from a cardiovascular standpoint. He is stable for discharge home at the discretion of his primary provider. He is to follow-up in 2 weeks on an outpatient basis or sooner if his symptoms worsen. Thank you for the opportunity to help participate in the care of this patient.
--- NOTE | 2018-12-06 12:44 | H&P/Discharge Summary ---
General - General Admission date:: 12/05/18 Discharge date: 12/06/18 *Admission Date: 12/05/18 *Chief complaint: sob *History of present illness: this pt was in the ed yesterday with flu and d/c on tamiflu - he was noted to be in chf and has known ht dis and had echo and card enz and was sen by card - he was doing better and d/c home to follow up with card 13- year-old black male with history of ischemic cardiomyopathy and systolic congestive heart failure was in the office earlier today for follow-up after ER visit yesterday. Patient was diagnosed with influenza type A with symptomatic treatment due to length of symptoms. Patient had an echocardiogram due to known history of cardiomyopathy and mildly elevated BNP with evidence of CHF on chest x-ray. Echocardiogram showed ejection fraction has decreased from previous reading of ejection fraction of 40%. Patient continues to complain of shortness of breath with minimal activity today and it was decided that hospitalization would be best for treatment of his decompensated biventricular CHF. Dr. Fortune has agreed to admit with Cardiology consul [facility] History I have reviewed the patient's past medical history: Yes Medical History: Reports:: Diabetes Mellitus Type 2, Hyperlipidemia, Hypertension, Myocardial Infarction Denies:: Cancer, Diabetes Mellitus Type 1, Internal Pacemaker, MRSA, Seizures Have you ever received a pneumonia vaccine?: No Have you received a flu vaccine this season?: No Other Medical History: Reports: Arthritis Laterality Cases: Left: Other Other Surgeries: Yes: Angiogram, Angioplasty, Appendectomy, Cardiac Catheterization, Cardiac Surgery, Coronary Stent, Other. No: Pacemaker Amputation: No Fractures: No - *Social History Educational Level: Completed High School Smoking Status: Former smoker Tobacco Type: cigarettes # Packs/Day (cigarettes): 1 #Yrs smoked (if former smoker): 1 Smoking End Date: 03/2017 Alcohol Intake: never Alcohol Intake Frequency:: other Substance Use Type: denies use Occupational Status: unemployed, disabled Housing: house Household Members: none Travel in the last 8 weeks: None - Psychiatric History Expresses thoughts of harming self/others: None Suicide Plan Description: No Plan Family Hx:: Unable to obtain Review of Systems - Review of Systems Review of systems:: pertinent systems reviewed and negative unless documented below - Constitutional Reports fatigue, Denies fever(s) - Eyes Denies change in vision - ENT Denies sore throat - *Cardiovascular Reports shortness of breath, Denies chest pain at rest - *Respiratory Reports cough, Reports shortness of breath, Denies coughing up blood - *Gastrointestinal Denies abdominal pain - *Genitourinary Denies blood in urine - *Musculoskeletal Denies joint pain - Integumentary/Breasts Denies rash - *Neurologic Denies abnormal walking, Denies abnormal speech, Denies lack of coordination - Psychiatric Denies anxiety Exam Vital signs and Labs for Last 24 Hours: Temp Pulse Resp BP Pulse Ox 98.3 F 84 18 139/86 99 12/06/18 08:00 12/06/18 08:00 12/06/18 08:00 12/06/18 08:00 12/06/18 08:00 Laboratory Results - last 24 hr 12/05/18 11:25: Total Creatine Kinase 402 H, CK-MB (CK-2) 5.1 H, CK-MB (CK-2) Rel Index 1.3, Troponin I 0.16 H 12/05/18 16:31: POC Glucose 129 H 12/05/18 20:22: POC Glucose 139 H 12/06/18 05:07: Total Bilirubin 0.6, Direct Bilirubin 0.2, Indirect Bilirubin 0.4, AST 17, ALT 59, Alkaline Phosphatase 72, Total Protein 6.9, Albumin 3.3 L, Triglycerides 68, Cholesterol 132 L, LDL Cholesterol 82, VLDL Cholesterol 14, HDL Cholesterol 36, Cholesterol/HDL Ratio 3.7 H 12/06/18 05:55: POC Glucose 145 H 12/06/18 06:07: Sodium 140, Potassium 3.7, Chloride 106, Carbon Dioxide 26, Anion Gap 11.7, BUN 15, Creatinine 1.16, Estimated Creat Clear 65, Estimated GFR 66, Est GFR ( Amer) 80, Glucose 153 H, Calcium 9.1 12/06/18 06:07: WBC 6.4, RBC 4.38 L, Hgb 12.8 L, Hct 40.1 L, MCV 91.5, MCH 29.1, MCHC 31.8, RDW 16.1, Plt Count 220, MPV 9.0, Neut % (Auto) 54.7, Lymph % (Auto) 35.1, [place] % (Auto) 6.6, Eos % (Auto) 3.3, Baso % (Auto) 0.3, Neut # (Auto) 3.5, Lymph # (Auto) 2.3, [place] # (Auto) 0.4, Eos # (Auto) 0.2, Baso # (Auto) 0.0 12/06/18 06:07: Magnesium 1.6 12/06/18 10:55: POC Glucose 178 H I & O for Last 24 hours: Intake & Output 12/04/18 12/05/18 12/06/18 12/07/18 11:59 11:59 11:59 11:59 Intake Total 1022 / 1022 Output Total 4050 / 4050 Balance -3028 / -3028 Weight 258 lb 9 oz 257 lb - Constitutional no acute distress Hospital Course Hospital Course: pt was on iv lasix and did well - oronary artery disease A. Cardiac catheterization 08-26-2015, severe two-vessel coronary artery disease with an occluded proximal circumflex artery and occluded ostial dominant RIGHT coronary artery. Mild to moderate proximal left anterior descending disease and moderate mid left anterior descending disease. Systolic congestive heart failure with ejection fraction of 35 percent. Normal renal arteries. Complex severe infrarenal abdominal aortic eccentric occlusion creating a 40 mm transverse stenotic gradient from proximal to distal. Severe pulmonary hypertension. The plan was to treat medically for the time being with strong emphasis on risk factor modification. B. Ischemic cardiomyopathy, medical therapy. C. Echocardiogram 07/2015, EF of 30-40% with moderate global hypokinesis of the LEFT ventricle. D. Echo, 11/2018, moderate LAE, mildly dilated LV with conc LVH and LVEF of 30% with marked hypo to akinesis of the basal septum, inferior, inferobasal and inferolateral wall. Mildly enlarged RA/RV. Calcified AV without stenosis. Moderate to severe MR, mild TR. E. Cardiac cath, 06/2018, ANGIOGRAPHIC RESULTS: 1. The left main artery normal 2. The left anterior descending artery has very proximal 20% stenosis followed by additional 20% stenosis followed by a mid vessel 60-70% stenosis and a large LAD which supplies both the right coronary artery and the circumflex artery 3. The circumflex artery is non dominant and has is proximally occluded and fills via left to left collaterals from the LAD 4. The right coronary artery is dominant proximally occluded and fills via left to right collaterals via the LAD 5. The CARRASCO ventriculogram reveals reduced ejection fraction 4045% with large inferior wall severe hypokinesis 6. The left ventricular end-diastolic pressure 35 mmHg HEMODYNAMICS: Pulmonary artery occlusion pressure is 35 mm Hg. Pulmonary arterial pressure is 70/40 mm Hg. Right atrial pressure is 15 mm Hg. SATURATIONS: PA is 70 %. RA is 71 %. IMPRESSION: 1. Chronic occlusion of the right coronary artery and circumflex artery which is filled via collaterals from the LAD. Mid LAD stenosis which is a left main artery equivalent given it supplies both the right coronary artery and circumflex artery via collaterals. 2. Successful stenting of the mid LAD/left main artery, severe disease reduced to 0% with 1 drug-eluting stent 3. Reduced ejection fraction with large regional wall motion abnormality 4. Severe biventricular congestive heart failure as evidenced by severely elevated pulmonary artery occlusion pressure 5. Severe pulmonary hypertension 6. Elevated right atrial pres eripheral arterial disease A. Drug-eluting stent placed to anterior tibialis trunk on November 24, 2015. Dual antiplatelet therapy recommended. B. BMS to right SFA and [employer], 07/2018 C. JUAN to Left SFA and popliteal artery. Single vessel runoff with small vessel disease noted. 06/2018 3. Diabetes mellitus, on insulin with poor control. 4. Hypertension 5. Hyperlipidemia 6. Obesity 7. Tobacco dependence 8. Chronic kidney disease stage 2-3 9. Osteomyelitis of LEFT foot. November 2015 s is a 53-year-old gentleman who was admitted to the hospital with an acute exacerbation of his congestive heart failure. The patient also tested positive for influenza. He did have a mildly elevated troponin as well. The patient denies any chest pain or pressure this morning. He did diurese very well overnight. He had a -2 L fluid balance. He states that his symptoms are much better now. He denies any chest pain or pressure and he denies any shortness of breath. He denies any fever chills nausea vomiting diarrhea PND orthopnea. The patient stated he is ready to go home. As mentioned above he did have a slight bump in his troponin. However this is most likely demand ischemia from his acute exacerbation of his systolic congestive heart failure. He is influenza A positive. The patient not going to be taken to the [facility] [employer] at this time. We will let him recover from his flu and see how his symptoms do with diuresis. If he does have recurrence of any chest pain or worsening shortness of breath we will consider repeating left heart cath on an outpatient basis. pt abhijeet be treated with tamiflu and followed as op - The patient was admitted to the hospital with an acute exacerbation of his systolic congestive heart failure and biventricular heart failure. The patient was diuresed with IV Lasix. His symptoms have significantly improved. We will change his Lasix over to oral Lasix 80 mg p.o. daily for continued diuresis. The patient was -2 L fluid balance overnight and is feeling much better today. 2. The patient did test positive for influenza A. This is being managed per his primary care provider. 3. The patient did have an elevated troponin. This is most likely from demand ischemia from his decompensated congestive heart failure and influenza A. No plans for invasive cardiac testing at this time. 4. We will continue with oral diuresis on an outpatient basis. Once he is recovered from the influenza A, if he continues to have symptoms then we may consider repeating his heart cath on an outpatient basis. However at this time his symptoms are much better he just needs continued diuresis. 5. His coronary artery disease is likely stable. This is likely demand ischemia. 6. His blood sugar is acceptable. 7. His LDL goal is less than 55. 8. The patient is aggressive control of his diabetes. Will defer this to his primary care provider. 9. No further recommendations at this time from a cardiovascular standpoint. He is stable for discharge home at the discretion of his primary provider. He is to follow-up in 2 weeks on an outpatient basis or sooner if his symptoms worsen. Results Labs on day of discharge: Labs from last 24 hours 12/06/18 12/06/18 12/06/18 10:55 06:07 06:07 WBC 6.4 RBC 4.38 L Hgb 12.8 L Hct 40.1 L MCV 91.5 MCH 29.1 MCHC 31.8 RDW 16.1 Plt Count 220 MPV 9.0 Neut % (Auto) 54.7 Lymph % (Auto) 35.1 [place] % (Auto) 6.6 Eos % (Auto) 3.3 Baso % (Auto) 0.3 Neut # (Auto) 3.5 Lymph # (Auto) 2.3 [place] # (Auto) 0.4 Eos # (Auto) 0.2 Baso # (Auto) 0.0 Sodium Potassium Chloride Carbon Dioxide Anion Gap BUN Creatinine Estimated Creat Clear Estimated GFR Est GFR ( Amer) Glucose POC Glucose 178 H Calcium Magnesium 1.6 Total Bilirubin Direct Bilirubin Indirect Bilirubin AST ALT Alkaline Phosphatase Total Creatine Kinase CK-MB (CK-2) CK-MB (CK-2) Rel Index Troponin I Total Protein Albumin Triglycerides Cholesterol LDL Cholesterol VLDL Cholesterol HDL Cholesterol Cholesterol/HDL Ratio 12/06/18 12/06/18 12/06/18 06:07 05:55 05:07 WBC RBC Hgb Hct MCV MCH MCHC RDW Plt Count MPV Neut % (Auto) Lymph % (Auto) [place] % (Auto) Eos % (Auto) Baso % (Auto) Neut # (Auto) Lymph # (Auto) [place] # (Auto) Eos # (Auto) Baso # (Auto) Sodium 140 Potassium 3.7 Chloride 106 Carbon Dioxide 26 Anion Gap 11.7 BUN 15 Creatinine 1.16 Estimated Creat Clear 65 Estimated GFR 66 Est GFR ( Amer) 80 Glucose 153 H POC Glucose 145 H Calcium 9.1 Magnesium Total Bilirubin 0.6 Direct Bilirubin 0.2 Indirect Bilirubin 0.4 AST 17 ALT 59 Alkaline Phosphatase 72 Total Creatine Kinase CK-MB (CK-2) CK-MB (CK-2) Rel Index Troponin I Total Protein 6.9 Albumin 3.3 L Triglycerides 68 Cholesterol 132 L LDL Cholesterol 82 VLDL Cholesterol 14 HDL Cholesterol 36 Cholesterol/HDL Ratio 3.7 H 12/05/18 12/05/18 12/05/18 20:22 16:31 11:25 WBC RBC Hgb Hct MCV MCH MCHC RDW Plt Count MPV Neut % (Auto) Lymph % (Auto) [place] % (Auto) Eos % (Auto) Baso % (Auto) Neut # (Auto) Lymph # (Auto) [place] # (Auto) Eos # (Auto) Baso # (Auto) Sodium Potassium Chloride Carbon Dioxide Anion Gap BUN Creatinine Estimated Creat Clear Estimated GFR Est GFR ( Amer) Glucose POC Glucose 139 H 129 H Calcium Magnesium Total Bilirubin Direct Bilirubin Indirect Bilirubin AST ALT Alkaline Phosphatase Total Creatine Kinase 402 H CK-MB (CK-2) 5.1 H CK-MB (CK-2) Rel Index 1.3 Troponin I 0.16 H Total Protein Albumin Triglycerides Cholesterol LDL Cholesterol VLDL Cholesterol HDL Cholesterol Cholesterol/HDL Ratio DS: Diagnosis - Discharge Diagnosis (1) Influenza due to influenza virus, type A, human Status: Acute (2) Heart failure, chronic, with acute decompensation Status: Acute (3) Biventricular congestive heart failure Status: Acute (4) Ischemic cardiomyopathy Status: Acute (5) Obesity (BMI 30-39.9) Status: Acute (6) CAD (coronary artery disease) Status: Chronic (7) Diabetes Status: Chronic (8) HLD (hyperlipidemia) Status: Chronic (9) HTN (hypertension) Status: Chronic (10) Elevated troponin Status: Acute (11) Hyperlipidemia Status: Acute (12) CKD (chronic kidney disease) Status: Acute Discharge Medications - Medications for Discharge Home Medication List at Discharge: New Aspirin [Aspirin 81mg EC Tab] 81 mg PO DAILY tablet. Carvedilol [Coreg 25mg Tablet] 25 mg PO BID tablet Carvedilol [Coreg 25mg Tablet] 25 mg PO BID tablet Clopidogrel Bisulfate [Plavix 75mg Tab] 75 mg PO DAILY tablet Furosemide [Lasix 80mg tablet] 80 mg PO DAILY tablet Hydrocod/Acet 5/325 mg [Cataldo 5/325mg tablet] 1 tab PO Q6HP PRN tablet PRN Reason: Moderate To Severe Pain Lisinopril [Zestril 5mg Tablet] 5 mg PO DAILY tablet Lisinopril [Zestril 5mg Tablet] 5 mg PO DAILY tablet Potassium Chloride [Klor-con 20 mEq tablet] 20 meq PO BID tablet Potassium Chloride [Klor-con 20 mEq tablet] 20 meq PO BID tablet Aspirin [Aspirin 81mg chewable tab] 81 mg PO DAILY tab.chew Clopidogrel Bisulfate [Plavix 75mg Tab] 75 mg PO DAILY tablet Continue hydroxyzine pamoate 25 mg capsule 25 mg PO HSP PRN cap PRN Reason: Anxiety aspirin 81 mg tablet,delayed release 81 mg PO DAILY insulin lispro protamine-lispro 100 unit/mL (75-25) subcutaneous susp See Rx Instructions SUB-Q BID #10 ml albuterol sulfate HFA 90 mcg/actuation aerosol inhaler 2 puff INHALATION Q4- 6H PRN #18 g PRN Reason: shortness of breath lisinopril 5 mg tablet 5 mg PO DAILY #90 tab furosemide 40 mg tablet 60 mg PO DAILY tab oxycodone-acetaminophen 5 mg-325 mg tablet 1 tab PO TID PRN #90 tab PRN Reason: pain Fluticasone/Vilanterol [Breo Ellipta] 1 inh INHALATION Q24H Clopidogrel Bisulfate [Plavix 75mg Tab] 75 mg PO DAILY Carvedilol [Carvedilol 25mg Tab] 25 mg PO BID Atorvastatin Calcium [Atorvastatin 80mg Tab] 80 mg PO HS Potassium Chloride [Klor-con 20 mEq tablet] 40 meq PO DAILY Gabapentin [Neurontin 800mg Tab] 800 mg PO TID Oseltamivir Phosphate [Tamiflu 75mg Capsule] 75 mg PO BID Fenofibrate,Micronized [Tricor 134mg] 134 mg PO DAILY buPROPion HCl [Wellbutrin 75mg Tablet] 75 mg PO BID Discontinued budesonide-formoterol HFA 160 mcg-4.5 mcg/actuation aerosol inhaler 2 puff INHALATION Q12H #6 g Meloxicam 7.5 mg PO DAILY
== END 2018-12-06 13:30 | disposition home or self-care (01) | DRG 291 ==
LOC: 2ND → OBSVTOIN 10:42
PROVIDERS: ADMIT Emergency Medicine; ATTEND Emergency Medicine

== ENCOUNTER → 2019-01-01 14:58 | Outpatient (CLI) | payer MEDICARE, MEDICAID, SELFPAY ==
[2019-01-01 17:52] LABS: Amphetamine/Metha Screen,Urine Negative ng/mL (<1000); Barbiturates Screen,Urine Negative ng/mL (<200); Benzodiazepines Screen,Urine Negative ng/mL (<200); Cannabinoid Screen,Urine Positive ng/mL (<50); Cocaine Screen,Urine Negative ng/mL (<300); Methadone Screen,Urine Negative ng/mL (<300); Opiate Screen,Urine Negative ng/mL (<300); Phencyclidine Screen,Urine Negative ng/mL (<25)
[2019-01-03 11:17] LABS: Creatinine, Urine 38.2 mg/dL (Not Estab.); Microalbumin, Urine 57.2 ug/mL (Not Estab.)
== END ==
PROVIDERS: Visit Provider Emergency Medicine
DX: Z79.899 Other long term (current) drug therapy (principal); E11.9 Type 2 diabetes mellitus without complications; Z79.4 Long term (current) use of insulin
CPT/HCPCS: 80305; 82043; 82570

== ENCOUNTER 2019-02-07 08:07 | Day surgery (SDC) | payer MEDICARE, MEDICAID, SELFPAY ==
[2019-02-07] VITALS (12 sets, daily range): BP systolic 111–219; BP diastolic 52–116; PULSE 55–74; RESP 18–20; TEMP 36.7; O2SAT 93–100; BMI 43.2
--- NOTE | 2019-02-07 | IR_ITS ---
CARDIAC CATHETERIZATION DATE OF CATHETERIZATION:02/07/2019 11:30 AM PROCEDURES: 1. Left heart catheterization 2. Left ventriculogram 3. Selective coronary angiogram INDICATION FOR TEST: 1. Known multivessel coronary artery disease 2. Recent non-ST elevation myocardial infarction 3. Progressive angina pectoris 4. Pulmonary edema 5. Systolic congestive heart failure Informed consent was obtained prior to the procedure. COMPLICATIONS: None ESTIMATED BLOOD LOSS: Less than 10 ml. TECHNIQUE: One percent lidocaine used to anesthetize the right anterior aspect of the wrist. The right radial artery was accessed via the Seldinger technique. A 6 Greek sheath was placed in the right radial artery. 2.5 mg of verapamil, 800 mcg of nitroglycerin, 1mg Lidocaine and 5000 U Heparin were given through the arterial sheath. The trap catheter and JL 3.5 catheter were also used to perform left heart catheterization, left ventriculogram and selective coronary angiogram. At the end of the procedure the sheath was removed good hemostasis was achieved using Traclet band, patient was transferred to the postop holding area in stable condition . ANGIOGRAPHIC RESULTS: 1. The left main artery normal 2. The left anterior descending artery has proximal tortuous 20-30% stenosis followed by additional 30% stenoses at the junction of the first septal slasher sawyer. The LDL was tortuous and has 30-40% mid vessel stenoses. The very distal LAD is occluded but then reconstitutes via left to left collaterals at the apical level 3. The circumflex artery ostially occluded 4. The right coronary artery proximally occluded but fills via left to right collaterals from the LAD 5. The CARRASCO ventriculogram reveals severe left ventricular dilatation reduced ejection fraction 30-35% 6. The left ventricular end-diastolic pressure 20 mmHg IMPRESSION: 1. Coronary artery disease as described above 2. Systolic dysfunction as described above 3. Mildly elevated LVEDP PLAN: 1. Aggressive medical management for coronary artery disease as well as LV dysfunction 2. Consideration for defibrillator 3. Avoidance of tobacco products
[2019-02-07 08:46] LABS: Basophils % 0.4 % (0.1-2.0); Eosinophils # 0.2 K/mm3 (0.0-0.4); Eosinophils % 3.3 % (0.1-12.0); Hematocrit 45.3 % (42.0-52.0); Hemoglobin 14.7 g/dL (14.1-18.0); Lymphocytes # 2.4 K/mm3 (0.7-4.5); Lymphocytes % 39.2 % (10-50); Mean Corpuscular HGB Conc 32.4 g/dL (31.8-35.4); Mean Corpuscular Hemoglobin 29.8 pg (27.0-31.2); Mean Corpuscular Volume 92.1 fl (80-94); Mean Platelet Volume 9.2 fl (7.4-10.4); Monocytes # 0.4 K/mm3 (0.1-1.0); Monocytes % 6.6 % (1.7-9.3); Neutrophils # 3.1 K/mm3 (1.8-7.8); Neutrophils % 50.5 % (37.0-80.0); Platelet Count 252 K/mm3 (142-424); Red Blood Count 4.92 M/mm3 (4.60-6.20); Red Cell Distribution Width 15.2 % (11.5-17.5); White Blood Count 6.2 K/mm3 (4.8-10.8)
[2019-02-07 08:55] LABS: Anion Gap 12.4 mEq/L (5-15); Blood Urea Nitrogen 19 mg/dL (7-18); Calcium 9.3 mg/dL (8.5-10.1); Carbon Dioxide 26 mmol/L (21.0-32.0); Chloride 104 mmol/L (98-107); Creatinine Clearance Estimated 54 mL/min (50-200); Creatinine,Serum 1.33 mg/dL (0.70-1.30); Estimated Glomerular Filt Rate 56 ml/min (>60); GFR (African American) 68 ML/MIN (>60); Glucose 205 mg/dL (74-106); Sodium 138 mmol/L (136-145)
[2019-02-07 08:56] LABS: Potassium 4.4 mmoL/L (3.5-5.1)
== END 2019-02-07 14:38 | disposition home or self-care (01) ==
LOC: CATHLAB 08:08
PROVIDERS: PCP Emergency Medicine; Visit Provider Internal Medicine
DX: I50.23 Acute on chronic systolic (congestive) heart failure (principal); I21.4 Non-ST elevation (NSTEMI) myocardial infarction; I25.5 Ischemic cardiomyopathy; I25.118 Atherosclerotic heart disease of native coronary artery with other forms of angina pectoris; Z95.5 Presence of coronary angioplasty implant and graft
CPT/HCPCS: 80048; 85025; 93458; 99152; C1725; C1769; J1644; Q9967

== ENCOUNTER → 2019-03-16 14:54 | Outpatient (CLI) | payer MEDICARE, MEDICAID, SELFPAY ==
--- NOTE | 2019-03-16 15:02 | CA_ITS ---
PROCEDURE: 2-D M-mode and color Doppler study INDICATIONS FOR THE TEST: Chest pain COPD Heart Murmur Tobacco Smoking+ Palpitations Fatigue Syncope Edema Hypertension+Diabetes Mellitus+ Rheumatic Fever SOB+PHILLIPS Obesity Hyperlipidemia+ Family History HD Additional History CM, CAD, PAD PATIENT INFORMATION HEIGHT: 64 WEIGHT: 256 GENDER: Male B/P: 146/71 2-D/M-MODE INTERPRETATION: 2-D MEASUREMENTS OBSERVED VALUES IN CMS Right Ventricular Dimension (RVDd) 1.9 Interventricular Septum (Thickness)(IVsd) 1.0 Left Ventricular Internal Dimensions(LVIDd) 6.4 Left Ventricular Posterior Wall (Thickness)(LVPWd) 1.0 Aortic Root 3.1 Aortic Cusp Separation 2.1 Left Atrial Dimensions (LAD) 4.4 2D 1. Left atrium is mildly enlarged, left ventricle is mildly dilated, visually estimated ejection fraction approximately 45%, with no obvious regional wall motion abnormality, endocardial surface of poorly visualized. 2. The right atrium and right ventricle are mildly enlarged with normal contractility. 3. The aortic valve is minimally thickened and fibrosed. 4. The mitral and tricuspid valve leaflets are minimally thickened. 5. The pulmonic valve is poorly present. 6. No significant pericardial effusion noted. DOPPLER INTERROGATION: Doppler interrogation of the aortic, mitral and tricuspid valvular presence of mild mitral, and tricuspid regurgitation, tricuspid regurgitation jet velocity is inadequate for calculation of the right ventricular systolic pressure, diastolic parameters are inconclusive. CONCLUSION: 1. Technically difficult study because of the patient's factor and poor acoustic windows 2. Mildly enlarged left atrium, mildly dilated left ventricle, visually estimated ejection fraction 45% with no regional wall motion abnormality, diastolic parameters are inconclusive. 3. Mild mitral and tricuspid regurgitation 4. No significant pericardial effusion noted.
== END ==
PROVIDERS: PCP Emergency Medicine; Visit Provider Nurse Practitioner Family
DX: I25.10 Atherosclerotic heart disease of native coronary artery without angina pectoris (principal)
CPT/HCPCS: 93306

== ENCOUNTER → 2019-03-28 14:56 | Outpatient (CLI) | payer MEDICARE, MEDICAID, SELFPAY ==
--- NOTE | 2019-03-28 14:58 | US_ITS ---
US Arterial Ankle Brachial Ind History: ITS.REASON: claudication, current smoker, prior to dictation of digits on the left foot, recent stent placement ORDERING PHYSICIAN: Gui Mayfield MD PATIENT AGE: 54 years TECHNIQUE: Segmental pressures obtained of both right and left leg. These are compared to brachial blood pressure to yield index at each level sampled including summary JOSELYN. The data sheets from the procedure are available in PACS FINDINGS Rest study only performed today No prior studies available for comparison. Blood pressures reported are in millimeters mercury. RIGHT LEG JOSELYN = .7. RIGHT LEG TBI=.6 Brachial BP: 150 Thigh BP: 128 Calf BP: 104 Ankle PT: 107 Ankle DP : 110 Digit =84 LEFT LEG JOSELYN = .8 LEFT LEG TBI= not performed Brachial BPD: 153 Thigh BP: 130 Calf BP: 169 Ankle PT:122 Ankle DP: 125 Digit = not performed due to prior amputation Pulses and waveforms: Normal IMPRESSION: 1. The ABIs are low at 0.7 on the right and 0.8 on the left indicating moderate atherosclerotic vascular disease
== END ==
PROVIDERS: PCP Emergency Medicine; Visit Provider Internal Medicine
DX: I73.9 Peripheral vascular disease, unspecified (principal)
CPT/HCPCS: 93922

== ENCOUNTER → 2019-05-10 14:46 | Outpatient (CLI) | payer MEDICARE, MEDICAID, SELFPAY ==
[2019-05-10 15:29] LABS: Amphetamine/Metha Screen,Urine Negative ng/mL (<1000); Barbiturates Screen,Urine Negative ng/mL (<200); Benzodiazepines Screen,Urine Negative ng/mL (<200); Cannabinoid Screen,Urine Positive ng/mL (<50); Cocaine Screen,Urine Negative ng/mL (<300); Methadone Screen,Urine Negative ng/mL (<300); Opiate Screen,Urine Negative ng/mL (<300); Phencyclidine Screen,Urine Negative ng/mL (<25)
[2019-05-17 08:16] LABS: Opiates Negative (Cutoff=100)
== END ==
PROVIDERS: Visit Provider Emergency Medicine
DX: M47.27 Other spondylosis with radiculopathy, lumbosacral region (principal); Z79.899 Other long term (current) drug therapy
CPT/HCPCS: 80305; 80361; 80365; G0480

== ENCOUNTER → 2019-05-11 09:47 | Outpatient (CLI) | payer MEDICARE, MEDICAID, SELFPAY ==
--- NOTE | 2019-05-11 09:55 | XR_ITS ---
XR hip LT 2-3V w/pelvis HISTORY: ITS.REASON: hip pain bilaterally ORDERING PHYSICIAN: Alysha Giron APRN PATIENT AGE: 54 years COMPARISON: Pelvis and right hip same date FINDINGS: There is mild asymmetrical joint space narrowing. There is no evidence of recent or old fracture. There is mild focal sclerosis of the left SI joint. The symphysis pubis per normal. IMPRESSION: Mild osteoarthritic change left hip along with mild left-sided sacroiliitis
--- NOTE | 2019-05-11 09:56 | XR_ITS ---
XR hip RT 2-3V w/pelvis HISTORY: ITS.REASON: TAMMY HIP PAIN ORDERING PHYSICIAN: Alysha Giron APRN PATIENT AGE: 54 years COMPARISON: Pelvis and left hip same date FINDINGS: There is mild asymmetrical joint space narrowing. Is no evidence of recent or old fracture. There is minor focal sclerosis of the right SI joint. There is mild disc space narrowing at the L4-5 level. IMPRESSION: Minor osteoarthritic change along with minor right sacroiliitis and mild degenerative disc disease L4-5
== END ==
PROVIDERS: PCP Emergency Medicine; Visit Provider Nurse Practitioner Family
DX: M25.551 Pain in right hip (principal); M25.552 Pain in left hip
CPT/HCPCS: 73502

== ENCOUNTER → 2019-06-29 14:24 | Outpatient (CLI) | payer MEDICARE, MEDICAID, SELFPAY ==
[2019-06-29 16:43] LABS: Hemoglobin A1C 7.4 % (0.0-7.0)
[2019-06-29 17:05] LABS: Anion Gap 11.8 mEq/L (5-15); Blood Urea Nitrogen 17 mg/dL (7-18); Carbon Dioxide 27 mmol/L (21.0-32.0); Chloride 106 mmol/L (98-107); Chol/HDL Ratio 4.4 (1-3.5); Cholesterol 154 mg/dL (140-200); Creatinine,Serum 1.28 mg/dL (0.70-1.30); Estimated Glomerular Filt Rate 59 ml/min (>60); GFR (African American) 71 ML/MIN (>60); Glucose 237 mg/dL (74-106); HDL Cholesterol 35 mg/dL (27-67); LDL Cholesterol 87 mg/dL (0-130); Potassium 3.8 mmoL/L (3.5-5.1); Sodium 141 mmol/L (136-145); Triglycerides 159 mg/dL (30-200); VLDL Cholesterol 32 mg/dL (0-40)
[2019-06-29 19:37] LABS: Amphetamine/Metha Screen,Urine Negative ng/mL (<1000); Barbiturates Screen,Urine Negative ng/mL (<200); Benzodiazepines Screen,Urine Negative ng/mL (<200); Cannabinoid Screen,Urine Positive ng/mL (<50); Cocaine Screen,Urine Negative ng/mL (<300); Methadone Screen,Urine Negative ng/mL (<300); Opiate Screen,Urine Negative ng/mL (<300); Phencyclidine Screen,Urine Negative ng/mL (<25)
[2019-07-02 09:54] LABS: Microalbumin, Urine 117.8 ug/mL (Not Estab.)
== END ==
PROVIDERS: Visit Provider Emergency Medicine
DX: E11.9 Type 2 diabetes mellitus without complications (principal); Z79.4 Long term (current) use of insulin; M47.27 Other spondylosis with radiculopathy, lumbosacral region
CPT/HCPCS: 80048; 80061; 80305; 82043; 83036

== ENCOUNTER → 2019-08-22 17:33 | Outpatient (CLI) | payer MEDICARE, MEDICAID, SELFPAY ==
[2019-08-22 18:55] LABS: Amphetamine/Metha Screen,Urine Negative ng/mL (<1000); Barbiturates Screen,Urine Negative ng/mL (<200); Benzodiazepines Screen,Urine Negative ng/mL (<200); Cannabinoid Screen,Urine Positive ng/mL (<50); Cocaine Screen,Urine Negative ng/mL (<300); Methadone Screen,Urine Negative ng/mL (<300); Opiate Screen,Urine Negative ng/mL (<300); Phencyclidine Screen,Urine Negative ng/mL (<25)
== END ==
PROVIDERS: Visit Provider Emergency Medicine
DX: M47.27 Other spondylosis with radiculopathy, lumbosacral region (principal)
CPT/HCPCS: 80305

== ENCOUNTER → 2019-09-18 13:38 | Outpatient (CLI) | payer MEDICARE, MEDICAID, SELFPAY ==
[2019-09-18 19:43] LABS: Amphetamine/Metha Screen,Urine Negative ng/mL (<1000); Barbiturates Screen,Urine Negative ng/mL (<200); Benzodiazepines Screen,Urine Negative ng/mL (<200); Cannabinoid Screen,Urine Positive ng/mL (<50); Cocaine Screen,Urine Negative ng/mL (<300); Methadone Screen,Urine Negative ng/mL (<300); Opiate Screen,Urine Negative ng/mL (<300); Phencyclidine Screen,Urine Negative ng/mL (<25)
[2019-09-27 11:15] LABS: Opiates Negative ng/mL (Cutoff=100)
== END ==
PROVIDERS: Visit Provider Emergency Medicine
DX: M47.27 Other spondylosis with radiculopathy, lumbosacral region (principal)
CPT/HCPCS: 80305; 80361; G0480

== ENCOUNTER 2019-10-17 14:19 | Outpatient (CLI) | payer MEDICARE, MEDICAID, SELFPAY ==
--- NOTE | 2019-10-17 14:41 | PC.NURSE ---
Spoke with Dr Fortune at approx 1404. notified that pt reported to [facility] today, concerned that he did not have any insulin to take for his evening dose. states he had it filled at [facility] but did not pick it up before they closed for the holidays. states he is a bad diabetic and his sugars easily get out of control. Pt requests a dose of his insulin tonight. Tong gave outpt order for humalog 75/25 45 units subq times 1. verified med on phone with ling sauer at [phone]. med pulled from ER [facility] at [facility] administered with pt teaching at approx 1430. medication of humalog 75/25 45 units verified with Marcelle Claudio RN.
--- NOTE | 2019-10-17 17:35 | INFXCTL.NOTE ---
fsbs was not needed nor collected. zero entered r/t no number provided
== END 2019-10-17 14:45 | disposition home or self-care (01) ==
LOC: INF 14:21
PROVIDERS: PCP Emergency Medicine; Visit Provider Emergency Medicine
DX: E11.9 Type 2 diabetes mellitus without complications (principal); Z79.4 Long term (current) use of insulin
CPT/HCPCS: 96372

== ENCOUNTER → 2019-11-16 17:21 | Outpatient (CLI) | payer MEDICARE, MEDICAID, SELFPAY ==
[2019-11-16 17:53] LABS: Basophils # 0.1 K/mm3 (0-0.2); Basophils % 1.5 % (0.1-2.0); Eosinophils # 0.2 K/mm3 (0.0-0.4); Eosinophils % 3.5 % (0.1-12.0); Hematocrit 41.4 % (42.0-52.0); Hemoglobin 12.7 g/dL (14.1-18.0); Lymphocytes # 1.9 K/mm3 (0.7-4.5); Mean Corpuscular HGB Conc 30.6 g/dL (31.8-35.4); Mean Corpuscular Hemoglobin 29.4 pg (27.0-31.2); Mean Platelet Volume 10.1 fl (7.4-10.4); Monocytes # 0.3 K/mm3 (0.1-1.0); Monocytes % 6.5 % (1.7-9.3); Neutrophils # 2.6 K/mm3 (1.8-7.8); Neutrophils % 51.5 % (37.0-80.0); Platelet Count 251 K/mm3 (142-424); Red Blood Count 4.31 M/mm3 (4.60-6.20); Red Cell Distribution Width 14.3 % (11.5-17.5); White Blood Count 5.1 K/mm3 (4.8-10.8)
[2019-11-16 18:00] LABS: Blood Urea Nitrogen 15 mg/dL (7-18); Calcium 8.9 mg/dL (8.5-10.1); Carbon Dioxide 25 mmol/L (21.0-32.0); Chloride 109 mmol/L (98-107); Creatinine,Serum 1.06 mg/dL (0.70-1.30); Estimated Glomerular Filt Rate 73 ml/min (>60); GFR (African American) 88 ML/MIN (>60); Glucose 192 mg/dL (74-106); Sodium 143 mmol/L (136-145)
[2019-11-16 18:17] LABS: Amphetamine/Metha Screen,Urine Negative ng/mL (<1000); Barbiturates Screen,Urine Negative ng/mL (<200); Benzodiazepines Screen,Urine Negative ng/mL (<200); Cannabinoid Screen,Urine Positive ng/mL (<50); Cocaine Screen,Urine Negative ng/mL (<300); Methadone Screen,Urine Negative ng/mL (<300); Opiate Screen,Urine Negative ng/mL (<300); Phencyclidine Screen,Urine Negative ng/mL (<25)
[2019-11-27 05:28] LABS: Opiates Negative (Cutoff=100); Oxymorphone (GC/MS) 112 ng/mL (Cutoff=100)
== END ==
PROVIDERS: Visit Provider Emergency Medicine
DX: E11.9 Type 2 diabetes mellitus without complications (principal); M47.27 Other spondylosis with radiculopathy, lumbosacral region; Z79.899 Other long term (current) drug therapy; Z79.4 Long term (current) use of insulin
CPT/HCPCS: 80048; 80305; 80361; 80365; 85025; G0480

== ENCOUNTER → 2019-11-21 11:12 | Outpatient (CLI) | payer MEDICARE, MEDICAID, SELFPAY ==
[2019-11-21 13:20] LABS: Anion Gap 13.2 mEq/L (5-15); Blood Urea Nitrogen 22 mg/dL (7-18); Calcium 8.7 mg/dL (8.5-10.1); Carbon Dioxide 29 mmol/L (21.0-32.0); Chloride 108 mmol/L (98-107); Creatinine,Serum 1.43 mg/dL (0.70-1.30); Estimated Glomerular Filt Rate 52 ml/min (>60); GFR (African American) 63 ML/MIN (>60); Glucose 187 mg/dL (74-106); Potassium 4.2 mmoL/L (3.5-5.1); Sodium 146 mmol/L (136-145)
== END ==
PROVIDERS: Visit Provider Physician Assistant
DX: I25.10 Atherosclerotic heart disease of native coronary artery without angina pectoris; E11.9 Type 2 diabetes mellitus without complications; E66.9 Obesity, unspecified; E78.5 Hyperlipidemia, unspecified; I25.5 Ischemic cardiomyopathy; I34.0 Nonrheumatic mitral (valve) insufficiency; I42.9 Cardiomyopathy, unspecified; I50.9 Heart failure, unspecified; I73.9 Peripheral vascular disease, unspecified; N18.9 Chronic kidney disease, unspecified; R06.02 Shortness of breath; Z72.0 Tobacco use; I50.23 Acute on chronic systolic (congestive) heart failure
CPT/HCPCS: 36415; 80048; 83880

== ENCOUNTER → 2019-12-17 13:51 | Outpatient (CLI) | payer MEDICARE, MEDICAID, SELFPAY ==
[2019-12-17 21:12] LABS: Amphetamine/Metha Screen,Urine Negative ng/ml (<1000); Barbiturates Screen,Urine Negative ng/ml (<200)
[2019-12-17 21:13] LABS: Benzodiazepines Screen,Urine Negative ng/ml (<200)
[2019-12-17 21:14] LABS: Cannabinoid Screen,Urine Positive ng/ml (<50); Cocaine Screen,Urine Negative ng/ml (<300)
[2019-12-17 21:15] LABS: Methadone Screen,Urine Negative ng/ml (<300); Opiate Screen,Urine Negative ng/ml (<300)
[2019-12-17 21:16] LABS: Phencyclidine Screen,Urine Negative ng/ml (<25)
[2019-12-24 07:05] LABS: Oxycodone (GC/MS) 610 ng/mL (Cutoff=100)
[2019-12-24 10:03] LABS: Opiates Negative (Cutoff=100)
== END ==
PROVIDERS: Visit Provider Emergency Medicine
DX: M54.5 Low back pain (principal); Z79.899 Other long term (current) drug therapy
CPT/HCPCS: 80305; 80361; 80365; G0480

== ENCOUNTER → 2020-01-02 15:43 | Outpatient (CLI) | payer MEDICARE, MEDICAID, SELFPAY | PROVIDERS: PCP Emergency Medicine; Visit Provider Physician Assistant | DX: G47.33 Obstructive sleep apnea (adult) (pediatric) (principal); G47.00 Insomnia, unspecified; R06.83 Snoring; R06.02 Shortness of breath; G47.9 Sleep disorder, unspecified; I42.9 Cardiomyopathy, unspecified; I50.82 Biventricular heart failure; I25.5 Ischemic cardiomyopathy; I34.0 Nonrheumatic mitral (valve) insufficiency; E78.5 Hyperlipidemia, unspecified | CPT/HCPCS: G0399 ==

== ENCOUNTER → 2020-01-04 15:07 | Outpatient (CLI) | payer MEDICARE, MEDICAID, SELFPAY ==
[2020-01-04 16:55] VITALS: BMI 43.6
== END ==
PROVIDERS: PCP Emergency Medicine; Visit Provider Emergency Medicine
DX: Z71.3 Dietary counseling and surveillance (principal); E11.9 Type 2 diabetes mellitus without complications
CPT/HCPCS: 97802

== ENCOUNTER 2020-02-25 10:34 | Emergency (ER) | payer MEDICARE, MEDICAID, SELFPAY ==
[2020-02-25 10:48] VITALS: BP 157/78; PULSE 70; RESP 20; TEMP 36.4; O2SAT 97; BMI 43.2
--- NOTE | 2020-02-25 11:02 | XR_ITS ---
PROCEDURE: XR CHEST 2V CLINICAL HISTORY: SOA COMPARISON: CXR2V XR chest 2V from 12/04/2018 CXR1VP XR chest portable from 02/01/2019 CT ABDOMEN PELVIS W CON from 07/13/2019 XR CHEST 2V from 08/03/2019 FINDINGS: There is cardiomegaly with pulmonary venous congestion consistent with CHF. Chronic interstitial changes are present with an area of atelectasis or fibrosis in the left lower lobe. There is minimal blunting of the right CP angle suggesting small right effusion. IMPRESSION: CHF with chronic changes with small right effusion Dictated by: Damián Li MD 02/25/2020 11:46 Electronically signed by Damián Li MD in [place] 02/25/2020 11:46
--- NOTE | 2020-02-25 11:08 | ECG_ITS ---
APPROVED REPORT Exam: Resting ECG HR:68 bpm ECG Measurements Heart Rate 68 AXES IL 132 P 49 QRSd 108 QRS 36 QT 424 T -42 QTc 450 <Conclusion> Normal sinus rhythm Incomplete RBBB Nonspecific ST and T wave abnormality Abnormal ECG Electronically signed by : Dandre Bryant, 02/26/2020 08:58:25
--- NOTE | 2020-02-25 11:17 | PC.NURSE ---
back from xray
[2020-02-25 11:33] VITALS: BP 150/94; PULSE 70; RESP 20; O2SAT 100
[2020-02-25 11:35] LABS: Basophils # 0.2 K/mm3 (0-0.2); Basophils % 2.8 % (0.1-2.0); Eosinophils # 0.2 K/mm3 (0.0-0.4); Eosinophils % 3.6 % (0.1-12.0); Hematocrit 42.3 % (42.0-52.0); Hemoglobin 13.6 g/dL (14.1-18.0); Lymphocytes # 2.1 K/mm3 (0.7-4.5); Lymphocytes % 33.2 % (10-50); Mean Corpuscular HGB Conc 32.2 g/dL (31.8-35.4); Mean Corpuscular Hemoglobin 29.9 pg (27.0-31.2); Mean Corpuscular Volume 92.8 fl (80-94); Mean Platelet Volume 9.9 fl (7.4-10.4); Monocytes # 0.5 K/mm3 (0.1-1.0); Neutrophils # 3.4 K/mm3 (1.8-7.8); Neutrophils % 53.4 % (37.0-80.0); Platelet Count 241 K/mm3 (142-424); Red Blood Count 4.56 M/mm3 (4.60-6.20); Red Cell Distribution Width 14.9 % (11.5-17.5); White Blood Count 6.4 K/mm3 (4.8-10.8)
[2020-02-25 11:43] LABS: Anion Gap 7.7 mEq/L (5-15); Blood Urea Nitrogen 21 mg/dl (9-20); Carbon Dioxide 28 mmol/L (22.0-30.0); Chloride 106 mmol/L (98-107); Potassium 3.7 mmoL/L (3.5-5.1); Sodium 138 mmol/L (136-145)
[2020-02-25 11:44] LABS: Alanine Aminotransferase 25 U/L (12-78); Albumin Level 4.3 g/dl (3.5-5.0); Albumin/Globulin Ratio 1.3 (1.1-1.8); Alkaline Phosphatase 72 U/L (38-126); Aspartate Amino Transferase 32 U/L (17-59); Bilirubin,Total 0.5 mg/dl (0.2-1.3); Calcium 9.7 mg/dl (8.4-10.2); Creatinine Clearance Estimated 68 mL/min (50-200); Estimated Glomerular Filt Rate 70 ml/min (>60); GFR (African American) 85 ML/MIN (>60); Globulin 3.4 g/dL (1.3-3.2); Glucose 147 mg/dl (74-100); Total Protein,Serum 7.7 g/dl (6.3-8.2)
[2020-02-25 11:55] LABS: Troponin I 0.03 ng/ml (0.00-0.034)
[2020-02-25 12:22] LABS: NT Pro Brain Natriuretic Pep. 1490 pg/mL (0-125)
--- NOTE | 2020-02-25 12:55 | PC.NURSE ---
MAXX DNUN spoke LOGAN Leonard
--- NOTE | 2020-02-25 13:08 | HMH.EDSOB ---
ED Disposition Clinical Impression: Acute exacerbation of chronic obstructive airways disease, Snores, ASCVD (arteriosclerotic cardiovascular disease), Cough, Congestive heart failure, Overweight, Cardiomyopathy, SOB (shortness of breath) Disposition: Home, Self-Care Condition on Discharge: Good Instructions: DI for Shortness of Breath Prescriptions: Mirtazapine [Remeron 15mg tablet] 15 mg PO HS 30 Days #30 tab Transmission Status: Pending to [facility] #[id number] Referrals: Morro Fortune MD [Primary Care Provider] - - Critical Care Critical Care Time: No Attestation: On 02/25/20, the high probability of a clinically significant, sudden or life threatening deterioration of the following system(s) required my full and direct attention, intervention and personal management. The time I documented below is in addition to time spent performing reported procedures but includes the following listed in this critical care notation. Medical Decision Making - Medical Records Medical records reviewed: Yes: I reviewed the patient's medical records. - Marcial Inquiry Pt receiving controlled substance: No Vital Signs: 02/25/20 10:48 02/25/20 11:33 Temperature 97.6 F Temperature Source Oral Pulse Rate [Right Radial] 70 70 Respiratory Rate 20 20 Blood Pressure [Right Arm] 157/78 H 150/94 H Blood Pressure Mean [Right Arm] 104 112 Blood Pressure Source [Right Arm] Automatic Cuff Automatic Cuff Blood Pressure Position [Right Arm] Sitting Sitting 02 Sat by Pulse Oximetry 97 100 Oxygen Delivery Method Room Air Room Air - Lab Data Lab results reviewed: Yes: I reviewed the patient's lab results. Lab Results 02/25/20 11:10: WBC 6.4, RBC 4.56 L, Hgb 13.6 L, Hct 42.3, MCV 92.8, MCH 29.9, MCHC 32.2, RDW 14.9, Plt Count 241, MPV 9.9, Neut % (Auto) 53.4, Lymph % (Auto) 33.2, Weston % (Auto) 7.0, Eos % (Auto) 3.6, Baso % (Auto) 2.8 H, Neut # (Auto) 3.4, Lymph # (Auto) 2.1, Weston # (Auto) 0.5, Eos # (Auto) 0.2, Baso # (Auto) 0.2 05/04/20 11:10: Sodium 138, Potassium 3.7, Chloride 106, Carbon Dioxide 28, Anion Gap 7.7, BUN 21 H, Creatinine 1.10, Estimated Creat Clear 68, Estimated GFR 70, Est GFR ( Amer) 85, Glucose 147 H, Calcium 9.7, Total Bilirubin 0.5, AST 32, ALT 25, Alkaline Phosphatase 72, Troponin I 0.03, Total Protein 7.7, Albumin 4.3, Globulin 3.4 H, Albumin/Globulin Ratio 1.3 02/25/20 11:10: NT-Pro-B Natriuret Pep 1490 H Result diagrams: 02/25/20 11:10 02/25/20 11:10 Orders (Tests/Meds): ORDERS Category Date Time Status Troponin I Q3H Lab 02/25/20 14:15 Ordered Troponin I Q3H Lab 02/25/20 17:15 Ordered Resp/SOB HPI - General Chief Complaint: Shortness of Breath/Dyspnea Stated Complaint: SOA Time Seen by Provider: 02/25/20 13:08 Mode of Arrival: Ambulatory Source of Information: Patient Limitations: No Limitations Description of Symptoms (Recalled from ER Triage Doc. by RN): Pt c/o SOA. Pt reports he has been SOA for approx 9 months. Pt reports woke up this morning with worsening SOA. Pt reports he is also having epigastric fullness. Pt reports each time his SOA gets worse he also has upper abd pain. Pt reports she has been see LOGAN Ford in cardiology r/t SOA. - History of Present Illness 54-year-old male presents the ED complaining of shortness of breath. He states that this shortness of breath has been going on for 9 months. I asked him if it is any worse today than usual he said no. However the patient did state that he has not been compliant with his Lasix. Patient sees Frank Hooker in cardiology for management of his congestive heart failure but the patient has not been taking his medications as prescribed. Patient is also supposed to be wearing a CPAP and does not have it and has not worn it in the last 6 to 7 months. Patient denies any chronic cough patient denies any malaise or fatigue. - Related Data Home Medications Medication Instructions Recorded Confirmed
[2020-02-25 13:53] VITALS: BP 148/87; PULSE 72; RESP 16; TEMP 36.6; O2SAT 98
== END 2020-02-25 13:54 | disposition home or self-care (01) ==
PROVIDERS: Emergency Provider Family Medicine; PCP Emergency Medicine
DX: J44.1 Chronic obstructive pulmonary disease with (acute) exacerbation (principal); I42.8 Other cardiomyopathies; I50.9 Heart failure, unspecified; E78.5 Hyperlipidemia, unspecified; I10 Essential (primary) hypertension; I25.2 Old myocardial infarction; F17.210 Nicotine dependence, cigarettes, uncomplicated
CPT/HCPCS: 71046; 80053; 83880; 84484; 85025; 93005; 99283

== ENCOUNTER → 2020-04-08 11:12 | Outpatient (CLI) | payer MEDICARE, MEDICAID, SELFPAY ==
[2020-04-08 12:45] LABS: Chloride 106 mmol/L (98-107); Potassium 4.3 mmoL/L (3.5-5.1); Sodium 140 mmol/L (136-145)
[2020-04-08 12:48] LABS: Anion Gap 7.3 mEq/L (5-15); Blood Urea Nitrogen 20 mg/dl (9-20); Calcium 9.4 mg/dl (8.4-10.2); Carbon Dioxide 31 mmol/L (22.0-30.0); Estimated Glomerular Filt Rate 63 ml/min (>60); GFR (African American) 76 ML/MIN (>60); Glucose 116 mg/dl (74-100)
[2020-04-08 12:57] LABS: NT Pro Brain Natriuretic Pep. 1440 pg/mL (0-125)
[2020-04-08 13:46] LABS: Coronavirus 19 IgG Antibody Negative (Negative); Coronavirus 19 IgM Antibody Negative (Negative)
== END ==
PROVIDERS: Visit Provider Physician Assistant
DX: E11.9 Type 2 diabetes mellitus without complications (principal); E66.9 Obesity, unspecified; E78.2 Mixed hyperlipidemia; I25.10 Atherosclerotic heart disease of native coronary artery without angina pectoris; I34.0 Nonrheumatic mitral (valve) insufficiency; I42.9 Cardiomyopathy, unspecified; I50.9 Heart failure, unspecified; N18.9 Chronic kidney disease, unspecified; I73.9 Peripheral vascular disease, unspecified; R06.02 Shortness of breath; Z72.0 Tobacco use
CPT/HCPCS: 36415; 80048; 83880; 86328

== ENCOUNTER → 2020-04-08 20:18 | Outpatient (CLI) | payer MEDICARE, MEDICAID, SELFPAY | PROVIDERS: PCP Emergency Medicine; Visit Provider Physician Assistant | DX: Z01.818 Encounter for other preprocedural examination (principal); G47.33 Obstructive sleep apnea (adult) (pediatric); R06.83 Snoring; E66.9 Obesity, unspecified; R06.02 Shortness of breath; I50.9 Heart failure, unspecified; I25.10 Atherosclerotic heart disease of native coronary artery without angina pectoris; I73.9 Peripheral vascular disease, unspecified; E11.9 Type 2 diabetes mellitus without complications; Z79.4 Long term (current) use of insulin; Z72.0 Tobacco use | CPT/HCPCS: 36415; 80048; 83880; 86328; 95810 ==

== ENCOUNTER 2020-05-02 08:20 | Observation (INO) | payer MEDICARE, MEDICAID, SELFPAY ==
[2020-05-02] VITALS (12 sets, daily range): BP systolic 150–173; BP diastolic 71–91; PULSE 60–83; RESP 17–24; TEMP 36.4–36.8; O2SAT 88–100; BMI 39.9; BMI 43.7
--- NOTE | 2020-05-02 08:31 | ECG_ITS ---
APPROVED REPORT Exam: Resting ECG HR:81 bpm ECG Measurements Heart Rate 81 AXES IA 116 P 69 QRSd 102 QRS 40 QT 386 T 22 QTc 448 <Conclusion> Normal sinus rhythm Nonspecific ST and T wave abnormality Abnormal ECG Electronically signed by : Dandre Bryant, 05/02/2020 16:31:37
--- NOTE | 2020-05-02 08:43 | XR_ITS ---
PROCEDURE: XR CHEST PORTABLE CLINICAL HISTORY: cough Shortness of air with cough COMPARISON: [id number] XR chest portable from 02/01/2019 XR CHEST 2V from 08/03/2019 XR CHEST 2V from 02/25/2020 FINDINGS: Cardiomegaly with pulmonary venous congestion consistent with CHF. There are some increased markings in the right lower lobe which could be due to attenuation from the overlying soft tissues. Cannot exclude the possibility of an area of infiltrate. No acute bony abnormalities. IMPRESSION: CHF with possible right lower lobe infiltrate Dictated by: Damián Li MD 05/02/2020 09:45 Electronically signed by Damián Li MD in [place] 05/02/2020 09:45
--- NOTE | 2020-05-02 08:45 | PC.NURSE ---
RT notified of need for ABG
--- NOTE | 2020-05-02 08:57 | HMH.EDSOB ---
ED Disposition Clinical Impression: Community acquired pneumonia, Systolic CHF, acute on chronic, COPD (chronic obstructive pulmonary disease), CKD (chronic kidney disease), HTN (hypertension), Acute and chronic respiratory failure with hypoxia Disposition: Admitted As Inpatient Condition on Discharge: Serious Referrals: Morro Fortune MD [Primary Care Provider] - Time of Disposition: 10:52 - Critical Care Critical Care Time: No Attestation: On 05/02/20, the high probability of a clinically significant, sudden or life threatening deterioration of the following system(s) required my full and direct attention, intervention and personal management. The time I documented below is in addition to time spent performing reported procedures but includes the following listed in this critical care notation. Medical Decision Making - Marcial Inquiry Pt receiving controlled substance: Yes Marcial was queried for this patient: No Risks and benefits of using a controlled substance: were discussed with pt by me Vital Signs: 05/02/20 08:22 05/02/20 08:52 05/02/20 09:16 Temperature 98.2 F Temperature Source Oral Pulse Rate Pulse Rate [Right] 83 77 75 Respiratory Rate 24 21 22 Blood Pressure [Right Arm] 165/78 H 164/89 H 156/86 H Blood Pressure Mean [Right Arm] 107 114 109 Blood Pressure Source [Right Arm] Automatic Cuff Blood Pressure Position [Right Arm] Supine 02 Sat by Pulse Oximetry 88 L 93 L 92 L Oxygen Delivery Method Room Air Room Air Room Air 05/02/20 09:30 05/02/20 09:53 05/02/20 09:58 Temperature Temperature Source Pulse Rate 70 Pulse Rate [Right] 80 76 Respiratory Rate 22 22 Blood Pressure [Right Arm] 150/86 H 173/81 H Blood Pressure Mean [Right Arm] 107 111 Blood Pressure Source [Right Arm] Automatic Cuff Automatic Cuff Blood Pressure Position [Right Arm] Supine Supine 02 Sat by Pulse Oximetry 95 92 L 96 Oxygen Delivery Method Room Air Room Air Room Air - Lab Data Lab Results 05/02/20 08:39: WBC 7.1, RBC 4.41 L, Hgb 14.1, Hct 41.9 L, MCV 95.1 H, MCH 31.9 H, MCHC 33.5, RDW 15.0, Plt Count 278, MPV 8.8, Neut % (Auto) 59.1, Lymph % (Auto) 30.8, Gila % (Auto) 6.6, Eos % (Auto) 2.9, Baso % (Auto) 0.6, Neut # (Auto) 4.2, Lymph # (Auto) 2.2, Gila # (Auto) 0.5, Eos # (Auto) 0.2, Baso # (Auto) 0.1 05/02/20 08:39: Sodium 143, Potassium 4.2, Chloride 112 H, Carbon Dioxide 27, Anion Gap 8.2, BUN 14, Creatinine 1.10, Estimated Creat Clear 118, Estimated GFR 70, Est GFR ( Amer) 84, Glucose 102 H, Calcium 9.6, Troponin I 0.02, NT-Pro-B Natriuret Pep 3500 H 05/02/20 08:39: Lactate 1.1 05/02/20 08:43: Specimen Source Left brachial, O2 % room air, ABG pH 7.45, ABG pCO2 34.9 L, ABG pO2 57.2 L, ABG HCO3 23.5, ABG Total CO2 24.6, ABG O2 Saturation 90, ABG Base Excess -0.5, Damián Test Non applicable Result diagrams: 05/02/20 08:39 05/02/20 08:39 Orders (Tests/Meds): ED MEDICATIONS Discontinued Medications Generic Name Dose Route Start Last Admin Trade Name Freq PRN Reason Stop Dose Admin Albuterol/Ipratropium 3 ml 05/02/20 08:43 05/02/20 09:53 Duoneb 3ml Neb IH 05/02/20 08:44 3 ml ONCE ONE Administration Furosemide 40 mg 05/02/20 10:40 05/02/20 10:48 Lasix 40mg/4ml Vial IV 05/02/20 10:41 40 mg ONCE ONE Administration Methylprednisolone Sodium Succinate 125 mg 05/02/20 08:43 05/02/20 08:49 Solu-Medrol 125mg/2ml Vial IV 05/02/20 08:44 125 mg ONCE ONE Administration ORDERS Category Date Time Status Consult to Cardiology [CONS] Stat Cons 05/02/20 10:44 Ordered Lipid Panel Routine Lab 05/02/20 10:44 Ordered Magnesium Routine Lab 05/02/20 10:44 Ordered Prothrombin Time INR Stat Lab 05/02/20 10:44 Ordered CA echo doppler complete Stat Y 05/02/20 10:48 Ordered ECG Request by /Nilo Stat Y 05/02/20 08:43 Ordered - Radiology Data #1 Image(s): Chest Cardiomegaly with pulmonary vascular congestion, questionable infiltrate.
[2020-05-02 09:05] LABS: Basophils # 0.1 K/mm3 (0-0.2); Basophils % 0.6 % (0.1-2.0); Eosinophils # 0.2 K/mm3 (0.0-0.4); Eosinophils % 2.9 % (0.1-12.0); Hematocrit 41.9 % (42.0-52.0); Hemoglobin 14.1 g/dL (14.1-18.0); Lymphocytes # 2.2 K/mm3 (0.7-4.5); Lymphocytes % 30.8 % (10-50); Mean Corpuscular HGB Conc 33.5 g/dL (31.8-35.4); Mean Corpuscular Hemoglobin 31.9 pg (27.0-31.2); Mean Corpuscular Volume 95.1 fl (80-94); Mean Platelet Volume 8.8 fl (7.4-10.4); Monocytes # 0.5 K/mm3 (0.1-1.0); Monocytes % 6.6 % (1.7-9.3); Neutrophils # 4.2 K/mm3 (1.8-7.8); Neutrophils % 59.1 % (37.0-80.0); Platelet Count 278 K/mm3 (142-424); Red Blood Count 4.41 M/mm3 (4.60-6.20); White Blood Count 7.1 K/mm3 (4.8-10.8)
[2020-05-02 09:06] LABS: Chloride 112 mmol/L (98-107)
[2020-05-02 09:07] LABS: Potassium 4.2 mmoL/L (3.5-5.1); Sodium 143 mmol/L (136-145)
[2020-05-02 09:09] LABS: Blood Urea Nitrogen 14 mg/dl (9-20); Creatinine Clearance Estimated 118 mL/min (50-200); Estimated Glomerular Filt Rate 70 ml/min (>60); GFR (African American) 84 ML/MIN (>60)
[2020-05-02 09:10] LABS: Anion Gap 8.2 mEq/L (5-15); Calcium 9.6 mg/dl (8.4-10.2); Carbon Dioxide 27 mmol/L (22.0-30.0); Glucose 102 mg/dl (74-100); Lactic Acid 1.1 mmol/L (0.7-2.1)
--- NOTE | 2020-05-02 09:14 | PC.NURSE ---
spoke to viky (RT) about abg
[2020-05-02 09:19] LABS: NT Pro Brain Natriuretic Pep. 3500 pg/mL (0-125)
[2020-05-02 09:23] LABS: Troponin I 0.02 ng/ml (0.00-0.034)
--- NOTE | 2020-05-02 09:24 | PC.NURSE ---
pt urinated. output 250 ml
--- NOTE | 2020-05-02 09:26 | PC.NURSE ---
RT at bedside
[2020-05-02 09:50] LABS: ABG Base Excess -0.5 mmol/L (-2.4-2.3); ABG HCO3 23.5 mmhg (22.0-26.0); ABG Oxygen Saturation 90 % (90-100); ABG PCO2 34.9 mmhg (35.0-45.0); ABG PH 7.45 mmol/L (7.35-7.45); ABG PO2 57.2 mmhg (80-100); ABG TCO2 24.6 mmhg (23-27)
[2020-05-02 09:51] LABS: Allen's Test Non Applicable; Oxygen room air %; Source Left Brachial
--- NOTE | 2020-05-02 10:42 | PC.NURSE ---
speaking to Dr Fortune
--- NOTE | 2020-05-02 10:48 | CA_ITS ---
APPROVED REPORT EXAM: Comprehensive 2D, Doppler, and color-flow Echocardiogram Cardiac Rn: Charline Velasco RVT Ht: 5 ft 4 in Wt: 260lbs BSA: 2.19 BP: 164/89 mmHg Indications: chf,soa,cad,cm,stents,copd,htn,hld,smoker,edema 2D Dimensions LVOT 2.09 cm (M/F) 1.5-2.5 M-Mode Dimensions RVDd 2.32 cm (0.9-2.6) LVDd 6.97 cm (3.5-5.7) LVDs 5.45 cm (3.5-5.7) IVSd 0.89 cm (0.6-1.1) PWd 0.98 cm (0.6-1.1) EF (Teich) 42.90% FS 21.80% EDV (Teich) 253.00 mL ESV (Teich) 144.40 mL LV Diastology E/A Ratio 3.47 Mitral Valve MV A Velocity 31.00 (40-130 cm/s) Left Ventricle Left atrium is moderately enlarged, left ventricle is normal size, mild concentric left ventricular hypertrophy, visually estimated ejection fraction 40%, endocardial surfaces are poorly visualized, there is moderate hypokinesis involving the inferior, inferior basal and posterior lateral wall. Diastolic parameters are inconclusive. Right Ventricle Right atrium is normal size, right ventricle is mildly enlarged with normal contractility. Aortic Valve Aortic valve is thickened and calcified leaflet continue to display good mobility, there is no aortic stenosis or aortic insufficiency. Mitral Valve Mitral valve leaflets are minimally thickened, there is no mitral stenosis, there is mitral regurgitation present which is difficult to quantify, this is likely in moderate range. Tricuspid Valve Tricuspid valve is grossly normal, there is mild tricuspid regurgitation, tricuspid regurgitation jet velocity is inadequate for calculation of the right ventricular systolic pressure. Pulmonic Valve Pulmonic valve is poorly visualized. Great Vessels Aortic root is normal size. Pericardium No significant pericardial effusion noted. Conclusion 1. Moderately enlarged left atrium, normal left ventricular size, mild concentric left ventricular hypertrophy, visually estimated ejection fraction 40% with segmental wall motion abnormality described above, repeat study with Definity contrast is recommended. Diastolic parameters are inconclusive. 2. Mitral regurgitation likely in moderate range. 3. No significant pericardial effusion noted. Electronically signed by : Idris Rhodes, 05/02/2020 13:24:51
--- NOTE | 2020-05-02 10:48 | PC.NURSE ---
Admission notified of pt being admitted
[2020-05-02 10:59] LABS: Magnesium 1.9 mg/dl (1.6-2.3); Triglycerides 92 mg/dl (30-150)
[2020-05-02 11:00] LABS: Chol/HDL Ratio 4.8 (1-3.5); Cholesterol 184 mg/dl (140-200); HDL Cholesterol 38 mg/dl (40-60); VLDL Cholesterol 18 mg/dL (0-40)
[2020-05-02 11:03] LABS: INR 1.14 (0.9-1.1); Prothrombin Time 11.6 seconds (9.4-11.8)
--- NOTE | 2020-05-02 11:08 | PC.NURSE ---
pt given a tray , refused the tray asked me to take it away.
[2020-05-02 11:10] LABS: Direct LDL Cholesterol 113.32 mg/dL (100-129)
--- NOTE | 2020-05-02 11:11 | PC.NURSE ---
Gave report to Erma RODRIGUEZ on floor
--- NOTE | 2020-05-02 11:57 | HMH.CNCARD ---
History of Present Illness Consult date: 05/02/20 Requesting physician: Morro Fortune Consult reason: congestive heart failure Chief complaint: SOA Additional Medical History:: 1. Coronary artery disease A. Cardiac catheterization 08-26-2015, severe two-vessel coronary artery disease with an occluded proximal circumflex artery and occluded ostial dominant RIGHT coronary artery. Mild to moderate proximal left anterior descending disease and moderate mid left anterior descending disease. Systolic congestive heart failure with ejection fraction of 35 percent. Normal renal arteries. Complex severe infrarenal abdominal aortic eccentric occlusion creating a 40 mm transverse stenotic gradient from proximal to distal. Severe pulmonary hypertension. The plan was to treat medically for the time being with strong emphasis on risk factor modification. B. Ischemic cardiomyopathy, medical therapy. C. Echocardiogram 07/2015, EF of 30-40% with moderate global hypokinesis of the LEFT ventricle. D. Echo, 11/2018, moderate LAE, mildly dilated LV with conc LVH and LVEF of 30% with marked hypo to akinesis of the basal septum, inferior, inferobasal and inferolateral wall. Mildly enlarged RA/RV. Calcified AV without stenosis. Moderate to severe MR, mild TR. E. Cardiac cath, 06/2018, JUAN to mild LAD/LEft main which supplies the RCA and Circ distribution through collaterals. EF 40-45% with large Inf wall severe hypokinesis. LVEDP of 35 mm Hg indicative of severe biventricular CHF with severe pulmonary HTN. RA pressure is 15 mm Hg. F. Left heart catheterization, 01/2019,ANGIOGRAPHIC RESULTS: 1. The left main artery normal 2. The left anterior descending artery has proximal tortuous 20-30% stenosis followed by additional 30% stenoses at the junction of the first septal zipper setter chainstitch. The LDL was tortuous and has 30-40% mid vessel stenoses. The very distal LAD is occluded but then reconstitutes via left to left collaterals at the apical level 3. The circumflex artery ostially occluded 4. The right coronary artery proximally occluded but fills via left to right collaterals from the LAD 5. The CARRASCO ventriculogram reveals severe left ventricular dilatation reduced ejection fraction 30-35% 6. The left ventricular end-diastolic pressure 20 mmHg IMPRESSION: 1. Coronary artery disease as described above 2. Systolic dysfunction as described above 3. Mildly elevated LVEDP G. Echo, 03/16/2019, technically difficult study. Mild LAE, mild LV dilatation with EF 45% and no regional wall motion abnormality. Diastolic parameters inconclusive. Mild MR and TR. 2. Peripheral arterial disease A. Drug-eluting stent placed to anterior tibialis trunk on November 24, 2015. Dual antiplatelet therapy recommended. B. BMS to right SFA and [employer], 07/2018 C. JUAN to Left SFA and popliteal artery. Single vessel runoff with small vessel disease noted. 06/2018 D. Abnormal JOSELYN, 03/2019 E. LE runoff showing small vessel disease below the knee, 03/2019, medical therapy recommended. 3. Diabetes mellitus, on insulin with poor control. 4. Hypertension A. Echocardiogram, 05/02/2020, pending 5. Hyperlipidemia A. History of statin therapy currently discontinued due to bilateral leg pain, 04/2020 B. LDL 113 and HDL 38, 05/02/2020 6. Obesity 7. Tobacco dependence, ongoing 8. Chronic kidney disease stage 2-3 9. Osteomyelitis of LEFT foot. November 2015 10. Chronic neck pain A. C-spine MRI, 10/2017, 1. Abnormal MRI of the cervical spine with cervical spondylosis with multilevel prominence of the posterior longitudinal ligament and disc protrusions with resultant narrowing of the canal and impingement upon the cord. 2. C3-C4: Degenerative disc disease with small central disc protrusion with prominent posterior longitudinal ligament and narrowing of the canal at 7 mm with mild impingement upon the anterior right aspect of the cord. There is mild left foraminal narrowing
--- NOTE | 2020-05-02 13:30 | PC.NURSE ---
RECEIVED REPORT ON PATIENT FROM Carla VEGA RN AT [phone]
--- NOTE | 2020-05-02 14:33 | P.CONPHA_ITS ---
[facility] Pharmacy VTE Monitoring - Patient Demographics Admission date: 05/02/20 Report Date: 05/02/20 Time: 14:33 Allergies/Adverse Reactions: Patient Allergies No Known Allergies Allergy (Verified 03/31/20 09:55) Height: 1.68 m Weight: 123.037 kg Patient Problems: Current Active Problems Community acquired pneumonia (Acute) Acute and chronic respiratory failure with hypoxia (Acute) Combined systolic and diastolic congestive heart failure with reduced left ventricular function, NYHA class 4 (Acute) Systolic CHF, acute on chronic (Acute) COPD (chronic obstructive pulmonary disease) (Acute) CKD (chronic kidney disease) (Acute) HTN (hypertension) (Chronic) - VTE Risk Labs: VTE Related Lab Results Hgb 14.1 g/dL (14.1-18.0) 05/02/20 08:39 Hct 41.9 % (42.0-52.0) L 05/02/20 08:39 Plt Count 278 K/mm3 (142-424) 05/02/20 08:39 PT 11.6 seconds (9.4-11.8) 05/02/20 08:39 INR 1.14 (0.9-1.1) H 05/02/20 08:39 BUN 14 mg/dl (9-20) 05/02/20 08:39 Creatinine 1.10 mg/dl (0.66-1.25) 05/02/20 08:39 Estimated Creat Clear 118 mL/min (50-200) 05/02/20 08:39 VTE Score: 4 VTE Risk Level: Low Risk - Prophylaxis VTE Prophylaxis Ordered?: Yes Types of VTE Prophylaxis: TEDS Knee High Location of Applied Device: Bilateral Lower Extremeties - VTE Diagnosis Confirmed Treatment or plan recommended: Continue Current Treatment
--- NOTE | 2020-05-02 14:58 | HMH.PHAINT ---
MEDICATION RECONCILIATION COMPLETED ON PATIENT USING EXTERNAL FILL HISTORY FROM PHARMACY AND LIST FROM MD OFFICE. -HENRY AMADOD
[2020-05-02 18:34] LABS: POC Glucose,Bedside 328 (70-110)
--- NOTE | 2020-05-02 20:00 | PC.NURSE ---
Pt's room air sat at rest = 94%.
--- NOTE | 2020-05-02 20:39 | HMH.HP ---
*Admission Date: 05/02/20 *Chief complaint: sob *History of present illness: this pt ptresented to the ed his is a 55-year-old male presented to the emergency department with difficulty breathing. Patient has had the symptoms for the last week. He has a longstanding history of COPD and continues to smoke. Patient has a mild nonproductive cough. States that he tried taking his breathing treatment, however did not help. States that his shortness of breath worsened over the night to where he could not sleep. He is also complaining of some mid lower back pain. Patient is a longstanding history of chronic back pain. Denies any new injury. He is having no headache, no change in vision, no focal neurologic deficit. Denies any fevers or chills. Not endorsing any chest pain or palpitations. No abdominal pain or vomiting. pt was found to be in chf and was admitted for eval and treatment [facility] History I have reviewed the patient's past medical history: Yes Medical History: Reports:: Cardiomyopathy, Congestive Heart Failure, Chronic Obstructive Pulmonary Disease (COPD), Coronary Artery Disease, Diabetes Mellitus Type 1, Diabetes Mellitus Type 2, Hyperlipidemia, Hypertension, Lung Disease, Myocardial Infarction, Peripheral Artery Disease Denies:: Cancer, Internal Pacemaker, MRSA, Seizures *Have you ever received a pneumonia vaccine?: Yes *Have you received a flu vaccine this season?: Yes Other Medical History: Reports: Arthritis Laterality Cases: Left: Other Other Surgeries: Yes: Angiogram, Angioplasty, Appendectomy, Cardiac Catheterization, Cardiac Surgery, Colonoscopy, Coronary Stent, Other. No: Pacemaker Amputation: Yes (toes) Fractures: No - *Social History Smoking Status: Current every day smoker Tobacco Type: cigarettes # Packs/Day (cigarettes): 10 #Yrs smoked (if former smoker): 1 Alcohol Intake: never Alcohol Intake Frequency:: other Substance Use Type: denies use *Occupational Status:: disabled Housing: house Household Members: none *Travel in the last 8 weeks: None Family Hx:: Diabetes, Heart Attack, Hyperlipidemia, Hypertension Review of Systems - Review of Systems Review of systems:: pertinent systems reviewed and negative unless documented below - Constitutional Denies fever(s) - Eyes Denies change in vision - ENT Denies sore throat - *Cardiovascular Reports shortness of breath, Reports leg swelling, Denies chest pain - *Respiratory Reports shortness of breath, Denies cough, Denies coughing up blood - *Gastrointestinal Denies abdominal pain - *Genitourinary Denies blood in urine - *Musculoskeletal Denies joint pain - Integumentary/Breasts Denies rash - *Neurologic Denies dizziness, Denies headache(s) - Psychiatric Denies confusion, Denies hopelessness Meds Home Medications Medication Instructions Recorded Confirmed Type furosemide 80 mg tablet 120 mg PO DAILY #45 tab 01/07/20 05/02/20 Rx aspirin 81 mg tablet,delayed 81 mg PO DAILY #90 tab 02/11/20 05/02/20 Rx release insulin lispro protamine-lispro 50 unit SQ BID #10 ml 02/11/20 05/02/20 Rx 100 unit/mL (75-25) subcutaneous susp Ropinirole HCl 1 mg PO DAILY 02/25/20 05/02/20 History rivaroxaban 2.5 mg tablet 2.5 mg PO BID #60 tab 03/19/20 05/02/20 Rx gabapentin 800 mg tablet 800 mg PO TID #90 tab 03/31/20 05/02/20 Rx losartan 50 mg tablet 50 mg PO QDAY #90 tab 04/23/20 05/02/20 Rx omeprazole 20 mg capsule,delayed 20 mg PO DAILY #90 cap 04/23/20 05/02/20 Rx release Fenofibrate,Micronized [Tricor 134 mg PO DAILY 05/02/20 05/02/20 History 134mg] Mirtazapine [Remeron] 15 mg PO HS 05/02/20 05/02/20 History Oxycodone HCl/Acetaminophen 1 tab PO TID 05/02/20 05/02/20 History [Percocet 7.5/325mg tablet] carvediloL [Carvedilol 25mg Tab] 25 mg PO BID 05/02/20 05/02/20 History Allergies Allergy/AdvReac Type Severity Reaction Status Date / Time No Known Allergies Allergy Verified 03/31/20 09:55 Exam Vital
[2020-05-02 21:50] LABS: POC Glucose,Bedside 415 (70-110)
[2020-05-03] VITALS: BP 159/79; PULSE 60; PULSE 64; RESP 16; TEMP 36.6; O2SAT 99
--- NOTE | 2020-05-03 03:55 | PC.NURSE ---
Pt has rested well this shift. C/O discomfort to back x1 this shift. Medicated per dec. Pt states he has chronic back pain. VS have remained stable. Pt remains on telemetry. Arrythmia and frequent PVC's noted at times this shift. Pt has remained asymptomatic. 2+ edema noted to bilateral extremities. Teds on. Total urine output thus far is 940 ml. No other concerns at this time. Will continue to monitor.
[2020-05-03 04:00] VITALS: BP 109/73; PULSE 60; PULSE 71; RESP 18; TEMP 36.7; O2SAT 97
[2020-05-03 04:09] VITALS: O2SAT 90
[2020-05-03 05:27] VITALS: BMI 43.4
[2020-05-03 06:11] LABS: POC Glucose,Bedside 269 (70-110)
[2020-05-03 07:11] LABS: Chloride 106 mmol/L (98-107); Sodium 138 mmol/L (136-145)
[2020-05-03 07:14] LABS: Blood Urea Nitrogen 20 mg/dl (9-20); Calcium 8.9 mg/dl (8.4-10.2); Carbon Dioxide 28 mmol/L (22.0-30.0); Creatinine Clearance Estimated 64 mL/min (50-200); Estimated Glomerular Filt Rate 63 ml/min (>60); GFR (African American) 76 ML/MIN (>60); Glucose 274 mg/dl (74-100); Magnesium 1.5 mg/dl (1.6-2.3)
[2020-05-03 08:00] VITALS: BP 153/83; PULSE 64; PULSE 70; RESP 20; TEMP 36.8; O2SAT 98
--- NOTE | 2020-05-03 08:56 | HMH.DCSUM ---
General - General Admission date:: 05/02/20 Discharge date: 05/03/20 HPI HPI: this pt ptresented to the ed his is a 55-year-old male presented to the emergency department with difficulty breathing. Patient has had the symptoms for the last week. He has a longstanding history of COPD and continues to smoke. Patient has a mild nonproductive cough. States that he tried taking his breathing treatment, however did not help. States that his shortness of breath worsened over the night to where he could not sleep. He is also complaining of some mid lower back pain. Patient is a longstanding history of chronic back pain. Denies any new injury. He is having no headache, no change in vision, no focal neurologic deficit. Denies any fevers or chills. Not endorsing any chest pain or palpitations. No abdominal pain or vomiting. pt was found to be in chf and was admitted for eval and treatment Hospital Course Hospital Course: pt was admitted and has did better with feeling less sob - he was seen by card -. Coronary artery disease A. Cardiac catheterization 08-26-2015, severe two-vessel coronary artery disease with an occluded proximal circumflex artery and occluded ostial dominant RIGHT coronary artery. Mild to moderate proximal left anterior descending disease and moderate mid left anterior descending disease. Systolic congestive heart failure with ejection fraction of 35 percent. Normal renal arteries. Complex severe infrarenal abdominal aortic eccentric occlusion creating a 40 mm transverse stenotic gradient from proximal to distal. Severe pulmonary hypertension. The plan was to treat medically for the time being with strong emphasis on risk factor modification. B. Ischemic cardiomyopathy, medical therapy. C. Echocardiogram 07/2015, EF of 30-40% with moderate global hypokinesis of the LEFT ventricle. D. Echo, 11/2018, moderate LAE, mildly dilated LV with conc LVH and LVEF of 30% with marked hypo to akinesis of the basal septum, inferior, inferobasal and inferolateral wall. Mildly enlarged RA/RV. Calcified AV without stenosis. Moderate to severe MR, mild TR. E. Cardiac cath, 06/2018, JUAN to mild LAD/LEft main which supplies the RCA and Circ distribution through collaterals. EF 40-45% with large Inf wall severe hypokinesis. LVEDP of 35 mm Hg indicative of severe biventricular CHF with severe pulmonary HTN. RA pressure is 15 mm Hg. F. Left heart catheterization, 01/2019,ANGIOGRAPHIC RESULTS: 1. The left main artery normal 2. The left anterior descending artery has proximal tortuous 20-30% stenosis followed by additional 30% stenoses at the junction of the first septal maritime pilot. The LDL was tortuous and has 30-40% mid vessel stenoses. The very distal LAD is occluded but then reconstitutes via left to left collaterals at the apical level 3. The circumflex artery ostially occluded 4. The right coronary artery proximally occluded but fills via left to right collaterals from the LAD 5. The CARRASCO ventriculogram reveals severe left ventricular dilatation reduced ejection fraction 30-35% 6. The left ventricular end-diastolic pressure 20 mmHg IMPRESSION: 1. Coronary artery disease as described above 2. Systolic dysfunction as described above 3. Mildly elevated LVEDP G. Echo, 03/16/2019, technically difficult study. Mild LAE, mild LV dilatation with EF 45% and no regional wall motion abnormality. Diastolic parameters inconclusive. Mild MR and TR. 2. Peripheral arterial disease A. Drug-eluting stent placed to anterior tibialis trunk on November 24, 2015. Dual antiplatelet therapy recommended. B. BMS to right SFA and [employer]ATE, 07/2018 C. JUAN to Left SFA and popliteal artery. Single vessel runoff with small vessel disease noted. 06/2018 D. Abnormal JOSELYN, 03/2019 E. LE runoff showing small vessel disease below the knee, 03/2019, medical therapy recommended. 3. Diabetes mellitus, on insulin with poor control. 4. Hypertension A
--- NOTE | 2020-05-03 10:35 | HMH.PHAINT ---
DISCHARGE COUNSELING COMPLETED ON PATIENT. NEW PRESCRIPTIONS INCLUDE SPIRONOLACTONE AND IRBESARTAN WHICH WERE SENT TO [facility] IN [place]. PATIENT IS TO CONTINUE ALL OTHER HOME MEDICATIONS AND STOP LOSARTAN. PATIENT AND PATIENT'S SON VERBALIZED UNDERSTANDING AND HAD NO QUESTIONS AT THIS TIME. -SUJATHA VAZQUEZ, PHARMD
== END 2020-05-03 09:50 | disposition home or self-care (01) ==
LOC: ER 10:37 → 2ND 10:53
PROVIDERS: Physician Assistant; Admitting Provider Emergency Medicine; Emergency Provider Emergency Medicine; PCP Emergency Medicine; Visit Provider Emergency Medicine
DX: I50.43 Acute on chronic combined systolic (congestive) and diastolic (congestive) heart failure (principal); I11.0 Hypertensive heart disease with heart failure; I27.20 Pulmonary hypertension, unspecified; J44.9 Chronic obstructive pulmonary disease, unspecified; Z72.0 Tobacco use; I25.5 Ischemic cardiomyopathy; I70.203 Unspecified atherosclerosis of native arteries of extremities, bilateral legs; Z95.5 Presence of coronary angioplasty implant and graft; Z95.820 Peripheral vascular angioplasty status with implants and grafts; Z79.899 Other long term (current) drug therapy
CPT/HCPCS: 36415; 71045; 80048; 80061; 82803; 82962; 83605; 83735; 83880; 84484; 85025; 85610; 87040; 93005; 93306; 94761; 96374; 96375; 99285; G0378

== ENCOUNTER 2020-05-14 11:17 | Emergency (ER) | payer MEDICARE, MEDICAID, SELFPAY ==
--- NOTE | 2020-05-14 | ECG_ITS ---
APPROVED REPORT Exam: Resting ECG HR:71 bpm ECG Measurements Heart Rate 71 AXES NJ 126 P 72 QRSd 114 QRS 67 QT 432 T -58 QTc 469 <Conclusion> Sinus rhythm with frequent premature ventricular complexes in a pattern of bigeminy Marked ST abnormality, possible inferior subendocardial injury Incomplete RBBB Abnormal ECG Electronically signed by : Dandre Bryant, 05/16/2020 20:07:37
[2020-05-14 11:28] VITALS: BP 168/81; PULSE 72; RESP 17; TEMP 37; O2SAT 98; BMI 39.9
--- NOTE | 2020-05-14 11:33 | CT_ITS ---
PROCEDURE: CT ABDOMEN PELVIS WO CON CLINICAL INDICATION: pain COMPARISON: CT ABDOMEN PELVIS W CON from 06/13/2019 CT ABDOMEN PELVIS W CON from 07/13/2019 TECHNIQUE: Axial images obtained with sagittal and coronal reformats. All CT scans at the facility use one or more dose reduction, viz: automated exposure control, ma/kV adjustment per patient size (including targeted exams where dose is matched to indication, i.e. head), or iterative reconstruction technique. FINDINGS: LOWER THORAX: Cardiomegaly. Trace right-sided pleural effusion. Coronary artery calcifications. ABDOMEN & PELVIS: Small amount of perihepatic fluid. The spleen, adrenal glands, and pancreas are unremarkable. There is moderate stranding of the perinephric renal fat bilaterally. No renal or ureteral calculi. Small cystic areas present in the retroperitoneum on the right medial to the right kidney measuring 3 cm and may be slightly larger compared to the previous exam. There has been a prior cholecystectomy. There is mild scattered stranding of the fat in the mesenteries. Small amount fluid is present in the left pericolic gutter with stranding of the fat in the pericolic gutters on both sides. There are scattered colonic diverticula in the ascending colon. No intestinal obstruction or free air. Given history of appendectomy. No pelvic mass evident.. No acute bony anomalies. There is some mild stranding of the subcutaneous fat in the anterior abdominal wall and gluteal regions.. IMPRESSION: 1. Cardiomegaly with trace right-sided effusion. 2. There is a small amount of perihepatic fluid. There is stranding of the fat in the mesenteries pericolic gutters in perinephric renal fat region. This could all be related to developing ascites/portal hypertension. One cannot exclude the possibility of underlying inflammatory or infectious process of the mesenteries. 3. Colonic diverticulosis. Dictated by: Damián Li MD 05/14/2020 12:28 Electronically signed by Damián Li MD in [place] 05/14/2020 12:28
--- NOTE | 2020-05-14 11:48 | PC.NURSE ---
Pt going to CT
[2020-05-14 11:50] LABS: Basophils % 0.5 % (0.1-2.0); Eosinophils # 0.2 K/mm3 (0.0-0.4); Eosinophils % 2.6 % (0.1-12.0); Hematocrit 40.6 % (42.0-52.0); Hemoglobin 13.4 g/dL (14.1-18.0); Lymphocytes # 2.1 K/mm3 (0.7-4.5); Lymphocytes % 34.3 % (10-50); Mean Corpuscular HGB Conc 33.1 g/dL (31.8-35.4); Mean Corpuscular Hemoglobin 31.7 pg (27.0-31.2); Mean Corpuscular Volume 95.7 fl (80-94); Mean Platelet Volume 9.2 fl (7.4-10.4); Monocytes # 0.4 K/mm3 (0.1-1.0); Monocytes % 6.8 % (1.7-9.3); Neutrophils # 3.5 K/mm3 (1.8-7.8); Neutrophils % 55.8 % (37.0-80.0); Platelet Count 269 K/mm3 (142-424); Red Blood Count 4.24 M/mm3 (4.60-6.20); Red Cell Distribution Width 15.1 % (11.5-17.5); White Blood Count 6.2 K/mm3 (4.8-10.8)
[2020-05-14 11:58] LABS: Alanine Aminotransferase 35 U/L (12-78); Albumin Level 3.6 g/dl (3.5-5.0); Albumin/Globulin Ratio 1.1 (1.1-1.8); Alkaline Phosphatase 79 U/L (38-126); Anion Gap 9.9 mEq/L (5-15); Aspartate Amino Transferase 38 U/L (17-59); Bilirubin,Total 0.7 mg/dl (0.2-1.3); Blood Urea Nitrogen 18 mg/dl (9-20); Calcium 9.3 mg/dl (8.4-10.2); Carbon Dioxide 27 mmol/L (22.0-30.0); Chloride 108 mmol/L (98-107); Creatinine Clearance Estimated 118 mL/min (50-200); Estimated Glomerular Filt Rate 70 ml/min (>60); GFR (African American) 84 ML/MIN (>60); Globulin 3.2 g/dL (1.3-3.2); Glucose 162 mg/dl (74-100); Potassium 3.9 mmoL/L (3.5-5.1); Sodium 141 mmol/L (136-145); Total Protein,Serum 6.8 g/dl (6.3-8.2)
--- NOTE | 2020-05-14 12:11 | HMH.EDGENADL ---
ED Disposition Clinical Impression: Epigastric abdominal pain Disposition: Home, Self-Care Condition on Discharge: Good Instructions: DI for Abdominal Pain-Adult Additional Instructions: Call Dr. Fortune's office for follow-up appointment additional instructions for ABDOMINAL PAIN: See your physician as soon as possible for further evaluation. Return immediately if worsening abdominal pain, vomiting, shortness of breath, fever, vomiting of blood or abdominal distention. Referrals: Morro Fortune MD [Primary Care Provider] - - Critical Care Critical Care Time: No Attestation: On 05/14/20, the high probability of a clinically significant, sudden or life threatening deterioration of the following system(s) required my full and direct attention, intervention and personal management. The time I documented below is in addition to time spent performing reported procedures but includes the following listed in this critical care notation. Medical Decision Making - Medical Records Medical records reviewed: Yes: I reviewed the patient's medical records. MR Comment: Admitted 05/02/2020 through 05/03/2020 for congestive heart failure. - Marcial Inquiry Pt receiving controlled substance: No Vital Signs: 05/14/20 11:28 05/14/20 12:41 05/14/20 13:35 Temperature 98.6 F Temperature Source Oral Pulse Rate Pulse Rate [Radial] 72 71 65 Respiratory Rate 17 Blood Pressure Blood Pressure [Right Arm] 168/81 H 142/78 H 165/87 H Blood Pressure Mean [Right Arm] 110 99 113 Blood Pressure Source Blood Pressure Source [Right Arm] Automatic Cuff Automatic Cuff Automatic Cuff Blood Pressure Position Blood Pressure Position [Right Arm] Sitting Sitting Sitting 02 Sat by Pulse Oximetry 98 100 99 Oxygen Delivery Method Room Air Room Air Room Air 05/14/20 14:16 Temperature 98.2 F Temperature Source Oral Pulse Rate 78 Pulse Rate [Radial] Respiratory Rate 16 Blood Pressure 160/78 H Blood Pressure [Right Arm] Blood Pressure Mean [Right Arm] Blood Pressure Source Automatic Cuff Blood Pressure Source [Right Arm] Blood Pressure Position Sitting Blood Pressure Position [Right Arm] 02 Sat by Pulse Oximetry Oxygen Delivery Method Room Air - Lab Data Lab results reviewed: Yes: I reviewed the patient's lab results. Lab Results 05/14/20 11:37: Amylase 65, Lipase 36 05/14/20 11:39: WBC 6.2, RBC 4.24 L, Hgb 13.4 L, Hct 40.6 L, MCV 95.7 H, MCH 31.7 H, MCHC 33.1, RDW 15.1, Plt Count 269, MPV 9.2, Neut % (Auto) 55.8, Lymph % (Auto) 34.3, [place] % (Auto) 6.8, Eos % (Auto) 2.6, Baso % (Auto) 0.5, Neut # (Auto) 3.5, Lymph # (Auto) 2.1, [place] # (Auto) 0.4, Eos # (Auto) 0.2, Baso # (Auto) 0.0 05/14/20 11:39: Sodium 141, Potassium 3.9, Chloride 108 H, Carbon Dioxide 27, Anion Gap 9.9, BUN 18, Creatinine 1.10, Estimated Creat Clear 118, Estimated GFR 70, Est GFR ( Amer) 84, Glucose 162 H, Calcium 9.3, Total Bilirubin 0.7, AST 38, ALT 35, Alkaline Phosphatase 79, Troponin I 0.01, Total Protein 6.8, Albumin 3.6, Globulin 3.2, Albumin/Globulin Ratio 1.1 Result diagrams: 05/14/20 11:39 05/14/20 11:39 - CT Data CT Scan: Abdomen, Pelvis Time Received: 13:[address] Reviewed: Yes: I have viewed the radiologist's interpretation Findings Narrative: PROCEDURE: CT ABDOMEN PELVIS WO CON CLINICAL INDICATION: pain COMPARISON: CT ABDOMEN PELVIS W CON from 06/13/2019 CT ABDOMEN PELVIS W CON from 07/13/2019 TECHNIQUE: Axial images obtained with sagittal and coronal reformats. All CT scans at the facility use one or more dose reduction, viz: automated exposure control, ma/kV adjustment per patient size (including targeted exams where dose is matched to indication, i.e. head), or iterative reconstruction technique. FINDINGS: LOWER THORAX: Cardiomegaly. Trace right-sided pleural effusion. Coronary artery calcifications. ABDOMEN & PELVIS: Small amount of perihepatic fluid. The spleen, adrenal glands,
[2020-05-14 12:15] LABS: Troponin I 0.01 ng/ml (0.00-0.034)
[2020-05-14 12:28] LABS: Amylase 65 U/L (30-110); Lipase 36 U/L (23-300)
[2020-05-14 12:41] VITALS: BP 142/78; PULSE 71; O2SAT 100
--- NOTE | 2020-05-14 13:30 | PC.NURSE ---
Dr Fortune will return call shortly.
[2020-05-14 13:35] VITALS: BP 165/87; PULSE 65; O2SAT 99
--- NOTE | 2020-05-14 13:42 | PC.NURSE ---
Dr Fortune returned call.
[2020-05-14 14:16] VITALS: BP 160/78; PULSE 78; RESP 16; TEMP 36.8; O2SAT 98
== END 2020-05-14 14:17 | disposition home or self-care (01) ==
PROVIDERS: Emergency Provider Emergency Medicine; PCP Emergency Medicine
DX: R10.13 Epigastric pain (principal); E11.65 Type 2 diabetes mellitus with hyperglycemia; Z79.4 Long term (current) use of insulin; I25.2 Old myocardial infarction; F17.210 Nicotine dependence, cigarettes, uncomplicated; R10.33 Periumbilical pain; J44.9 Chronic obstructive pulmonary disease, unspecified; E78.5 Hyperlipidemia, unspecified; I10 Essential (primary) hypertension; Z79.899 Other long term (current) drug therapy
CPT/HCPCS: 74176; 80053; 82150; 83690; 84484; 85025; 93005; 99284

== ENCOUNTER → 2020-05-23 17:21 | Outpatient (CLI) | payer MEDICARE, MEDICAID, SELFPAY ==
[2020-05-23 19:15] LABS: Ferritin 165 ng/ml (17.9-464)
== END ==
PROVIDERS: Visit Provider Specialist
DX: I50.40 Unspecified combined systolic (congestive) and diastolic (congestive) heart failure (principal)
CPT/HCPCS: 36415; 82728

== ENCOUNTER → 2020-06-15 13:47 | Outpatient (CLI) | payer MEDICARE, MEDICAID, SELFPAY ==
[2020-06-15 14:46] LABS: Coronavirus 19 IgG Antibody Negative (Negative); Coronavirus 19 IgM Antibody Negative (Negative)
== END ==
PROVIDERS: PCP Emergency Medicine; Visit Provider Internal Medicine Gastroenterology
DX: Z01.818 Encounter for other preprocedural examination (principal)
CPT/HCPCS: 36415; 86328

== ENCOUNTER 2020-07-14 07:47 | Day surgery (SDC) | payer MEDICARE, MEDICAID, SELFPAY ==
[2020-07-08 13:53] VITALS: BMI 40.7
[2020-07-14 08:10] VITALS: BP 154/80; PULSE 74; RESP 16; TEMP 36.3; O2SAT 100
[2020-07-14 08:20] LABS: POC Glucose,Bedside 232 (70-110)
[2020-07-14 08:26] LABS: Coronavirus 19 IgG Antibody Negative (Negative); Coronavirus 19 IgM Antibody Negative (Negative)
[2020-07-14 09:26] VITALS: O2SAT 97
--- NOTE | 2020-07-14 09:28 | HMH.ANESCL ---
[facility] Anesthesia Checklist - Patient Identification Patient Identification: Arm Band, Verbal (Name & ) - Structural Data Admitted From: Home Planned Operative Procedure/s: EGD Consent for Planned Operative Procedure(s) Verified: Yes Verified Documents: Surgical Consent, History and Physical - NPO Status Verified Time NPO: 00:00 - Chart Verification Results Verified: CBC, BMP, PT, PTT, INR - Additional verifications Anesthesia Reactions: No - Airway Assessment C-Spine Mobility Assessed: Yes (MP 3, thick neck) TMJ Mobility Assessed: Yes Dentition: Edentulous - Neurological Assessment Level of Consciousness: Awake, Alert, Appropriate, Follows Commands Hx Seizures: No Numbness or tingling in extremities: No - Anesthesia Plan Anesthesia Risk discussed: Yes Anesthesia Plan: Verified ASA Class: III Anesthesia Type: MAC [facility] History I have reviewed the patient's past medical history: Yes Medical History: Reports:: Asthma, Cardiomyopathy, Congestive Heart Failure, Chronic Obstructive Pulmonary Disease (COPD), Coronary Artery Disease, Cerebrovascular Accident, Diabetes Mellitus Type 2, Hyperlipidemia, Hypertension, Lung Disease, Myocardial Infarction, Peripheral Artery Disease Denies:: Cancer, Internal Pacemaker, MRSA, Seizures *Have you ever received a pneumonia vaccine?: No *Have you received a flu vaccine this season?: No Other Medical History: Reports: Arthritis Anesthesia experience/problems:: No prior complications Laterality Cases: Left: Other Other Surgeries: Yes: Angiogram, Angioplasty, Appendectomy, Cardiac Catheterization, Cardiac Surgery, Cholecystectomy, Colonoscopy, Coronary Stent, Other. No: Pacemaker Amputation: No Fractures: No - *Social History Last grade of school completed: High school graduate Smoking Status: Current every day smoker Tobacco Type: cigarettes # Packs/Day (cigarettes): 1 #Yrs smoked (if former smoker): 1 Alcohol Intake: never Alcohol Intake Frequency:: other Substance Use Type: marijuana *Occupational Status:: disabled Housing: house Household Members: none *Travel in the last 8 weeks: None Family Hx:: Diabetes, Heart Attack, Hyperlipidemia, Hypertension
--- NOTE | 2020-07-14 09:47 | P.PCN_ITS ---
[facility] Procedure Note Procedure Note:: Upper Endoscopy Procedure Report: Esophagogastroduodenoscopy with cold biopsies Endoscopost: Wilfredo Kunz II, MD Referring Physician: Morro Fortune MD/Gui Mayfield MD Date of Procedure: July 14, 2020 Equipment: Olympus GIF 180 standard upper endoscope Sedation: MAC sedation Indications: Mr. Reeves is a 55-year-old gentleman with dyspepsia. He has had generalized abdominal pain and discomfort which he describes as a squeezing pain. He has had some minor belching, bloating, nausea and early satiety. He reports no heartburn, reflux or dysphagia. He reports no melena, hematochezia or weight loss. He has regular bowel movements. This is his first upper endoscopy performed for diagnostic purposes. Procedure: Prior to the procedure, a history and physical exam was performed, and patient's medications and allergies were reviewed. The risks, benefits and alternatives of the sedation and procedure were discussed with the patient. All questions were answered and informed consent was obtained. The patient was brought to the procedure room. Patient identification and proposed procedure were verified by the physician and the nurse. The patient was placed in a left lateral decubitus position and the scope was passed under direct vision. Throughout the procedure, the patient's blood pressure, pulse, and oxygen saturations were monitored continuously. The upper GI endoscopy was accomplished without difficulty. The patient tolerated the procedure well. Findings: The scope was passed directly into the upper esophagus and advanced to the third portion of the duodenum. The post bulbar duodenum and duodenal bulb were normal with normal mucosa and conniventes. The scope was withdrawn through a normal duodenal bulb and pylorus into the stomach. There was bile reflux with mild linear reactive gastropathy of the antrum. There was a reticular or cobblestone pattern within the body and fundus of the stomach consistent with chronic gastritis and possibly H. pylori. Biopsies were taken from the lesser curvature to rule out H. pylori. Upon retroflexion, there was a very small sliding 1 to 2 cm hiatal hernia. The scope was then withdrawn into the esophagus. There was a serrated Z line consistent with GERD (nonerosive). Cold biopsies were taken at the GE junction. The remainder of the esophageal mucosa was normal. Impression: 1. Nonerosive GERD with very small sliding 1 to 2 cm hiatal hernia 2. Chronic gastritis with mild linear reactive gastropathy Plan: I will follow-up the biopsies to rule out H. pylori and Neumann's. I am going to increase omeprazole to 40 mg daily. We will discuss additional dietary measures and treatment options for his dyspepsia.
[2020-07-14 09:48] VITALS: BP 156/93; PULSE 80; RESP 16; TEMP 36.9; O2SAT 92
[2020-07-14 09:58] VITALS: BP 161/65; PULSE 79; RESP 16; TEMP 36.9; O2SAT 93
[2020-07-14 10:08] VITALS: BP 129/81; PULSE 69; RESP 16; TEMP 36.9; O2SAT 94
[2020-07-14 10:28] VITALS: BP 174/90; PULSE 74; RESP 18; TEMP 36.9; O2SAT 94
== END 2020-07-14 10:28 | disposition home or self-care (01) ==
PROVIDERS: PCP Emergency Medicine; Visit Provider Internal Medicine Gastroenterology
PROC: 0DJ08ZZ Inspection of Upper Intestinal Tract, Via Natural or Artificial Opening Endoscopic (ICD-10-PCS; CPT 43235; principal; 2020-07-14 09:30)
DX: K21.9 Gastro-esophageal reflux disease without esophagitis; K31.9 Disease of stomach and duodenum, unspecified; K44.9 Diaphragmatic hernia without obstruction or gangrene; K29.50 Unspecified chronic gastritis without bleeding; I11.0 Hypertensive heart disease with heart failure; E11.9 Type 2 diabetes mellitus without complications; J44.9 Chronic obstructive pulmonary disease, unspecified; I50.9 Heart failure, unspecified; I25.10 Atherosclerotic heart disease of native coronary artery without angina pectoris; I25.2 Old myocardial infarction; I73.9 Peripheral vascular disease, unspecified; M19.90 Unspecified osteoarthritis, unspecified site
CPT/HCPCS: 43239; 36415; 82962; 86328; 88305; 88342

== ENCOUNTER 2020-09-06 03:02 | Observation (INO) | payer MEDICARE, MEDICAID, SELFPAY ==
[2020-09-06] VITALS (12 sets, daily range): BP systolic 135–207; BP diastolic 65–147; PULSE 50–89; RESP 16–28; TEMP 36.7–36.9; O2SAT 94–100; BMI 40.7; BMI 43.4
--- NOTE | 2020-09-06 | CT_ITS ---
PROCEDURE: CT CHEST WO/W CON Referring Doctor: Xiang Espinosa Patient Age:55Y CLINCAL INDICATION: Dyspnea short of breath few days. Smoker. Has cardiac stent COMPARISON: CT CT CHEST WO/W CON from 09/06/2020 TECHNIQUE: IV Contrast: 75ml Isovue 370 Axial images obtained with sagittal and coronal reformats. All CT scans at the facility use one or more dose reduction, viz: automated exposure control, ma/kV adjustment per patient size (including targeted exams where dose is matched to indication, i.e. head), or iterative reconstruction technique. FINDINGS: PLEURAL SPACES: Small bilateral pleural effusions right slightly more evident than left but LUNGS: Underlying mild emphysematous changes Minimal interstitial edema. Most evident lower lobes posteriorly right slightly more so than left. Suggestion mild vascular congestion likely mild CHF. Underlying emphysematous changes and mild fibrotic changes but Small unimpressive lung nodules would benefit from follow-up CT chest 6-9 months: Small 6.7 mm pulmonary nodule at the left upper lobe (axial image 22). Also tiny scattered less than than 4mm-5 mm small pleural based nodules bilaterally (right chest axial slice 42, left chest axial slice 28 HEART: Cardiomegaly. Mild left atrial enlargement noted. Coronary artery calcifications. No significant pericardial effusion MEDIASTINAL AND HILAR STRUCTURES: Low-density area at the AP window (3 cm AP 2.5 cm height 1.6 cm wide) as well as left precarinal region and posterior subcarinal region. All these areas measure fairly low density and may be some minimal fluid with within mediastinum and subcarinal space of possibly from pericardial reflection however as noted there is no significant pericardial effusion otherwise this features also benefit follow-up 6 months There are collection of old granulomatous calcified nodes measure up to 2.7 cmx 1.6 cm right paratracheal region. Small calcified granuloma the right upper lobe 5 mm size Mild fullness of the hilar regions likely reflects underlying interstitium in vascular structures. Mild central peribronchial cuffing I suspect is related to the patient's suspected CHF PULMONARY ARTERIES: No pulmonary embolus evident. AORTA: No acute finding. No thoracic aortic aneurysm or dissection evident. BONY STRUCTURES: No acute bony abnormalities apparent. Mild anterior marginal osteophytes lower T-spine. Possible old healed lower left rib fractures involving the 11th rib on left. Mild undulation here LYMPH NODES: No enlarged lymph nodes evident. UPPER ABDOMEN: Unremarkable. ADDITIONAL FINDINGS: The 3.3 cm low-density area posterior to the right renal artery again noted as discussed in greater detail on the CT abdomen report IMPRESSION: 1.Small right pleural effusion with trace left pleural effusion 2..Cardiomegaly 3...Suspect mild CHF. Suggestion of mild vascular congestion with minimal interstitial edema most evident towards lower lobes of likely due to such 4..Underlying mild emphysematous changes, with small unimpressive pulmonary nodules bilaterally largest measures 6.5 mm left upper lobe (coronal image 52) . Also additional low-density areas AP window and mediastinum most likely reflecting small fluid collections within mediastinum associated with superior most pericardial reflection. However no significant pericardial effusion otherwise .. Old granulomatous disease also noted . Suggest a follow-up CT chest is 6-9 months to confirm stability or regression of these observations Dictated by: Dillan Nichols MD 09/06/2020 11:24 Dillan Nichols MD in [place] 09/06/2020 11:24
--- NOTE | 2020-09-06 03:02 | ECG_ITS ---
APPROVED REPORT Exam: Resting ECG HR:93 bpm ECG Measurements Heart Rate 93 AXES MS 138 P 112 QRSd 104 QRS 51 QT 392 T 216 QTc 487 Conclusion Normal sinus rhythm Lateral infarct, age undetermined Possible Inferior infarct, age undetermined Abnormal ECG Electronically signed by : Epi Sparks, 09/06/2020 06:53:17
[2020-09-06 03:25] LABS: ABG HCO3 22.6 mmhg (22.0-26.0); ABG Oxygen Saturation 77 % (90-100); ABG PCO2 36.5 mmhg (35.0-45.0); ABG PH 7.41 mmol/L (7.35-7.45); ABG TCO2 23.7 mmhg (23-27)
[2020-09-06 03:31] LABS: Basophils % 0.4 % (0.1-2.0); Eosinophils # 0.1 K/mm3 (0.0-0.4); Eosinophils % 1.6 % (0.1-12.0); Hematocrit 43.3 % (42.0-52.0); Hemoglobin 13.7 g/dL (14.1-18.0); Lymphocytes # 2.1 K/mm3 (0.7-4.5); Lymphocytes % 29.6 % (10-50); Mean Corpuscular HGB Conc 31.5 g/dL (31.8-35.4); Mean Corpuscular Hemoglobin 30.4 pg (27.0-31.2); Mean Corpuscular Volume 96.3 fl (80-94); Mean Platelet Volume 9.3 fl (7.4-10.4); Monocytes # 0.6 K/mm3 (0.1-1.0); Monocytes % 8.5 % (1.7-9.3); Neutrophils # 4.2 K/mm3 (1.8-7.8); Neutrophils % 59.9 % (37.0-80.0); Platelet Count 272 K/mm3 (142-424)
[2020-09-06 03:35] LABS: Alanine Aminotransferase 28 U/L (12-78); Albumin Level 3.9 g/dl (3.5-5.0); Albumin/Globulin Ratio 1.2 (1.1-1.8); Alkaline Phosphatase 95 U/L (38-126); Aspartate Amino Transferase 33 U/L (17-59); Bilirubin,Total 1.4 mg/dl (0.2-1.3); Blood Urea Nitrogen 12 mg/dl (9-20); Calcium 9.6 mg/dl (8.4-10.2); Carbon Dioxide 27 mmol/L (22.0-30.0); Creatinine Clearance Estimated 166 mL/min (50-200); Estimated Glomerular Filt Rate 101 ml/min (>60); GFR (African American) 122 ML/MIN (>60); Globulin 3.2 g/dL (1.3-3.2); Glucose 224 mg/dl (74-100); Potassium 3.9 mmoL/L (3.5-5.1); Sodium 140 mmol/L (136-145); Total Protein,Serum 7.1 g/dl (6.3-8.2)
[2020-09-06 03:36] LABS: Allen's Test Acceptable; Source Left Radial
[2020-09-06 03:37] LABS: ABG PO2 40.9 mmhg (80-100)
[2020-09-06 03:43] LABS: Anion Gap 12.9 mEq/L (5-15); Chloride 104 mmol/L (98-107)
[2020-09-06 03:47] LABS: NT Pro Brain Natriuretic Pep. 4270 pg/mL (0-125)
[2020-09-06 03:54] LABS: Troponin I 0.01 ng/ml (0.00-0.034)
[2020-09-06 04:29] LABS: Coronavirus 19 IgG Antibody Negative (Negative); Coronavirus 19 IgM Antibody Negative (Negative)
--- NOTE | 2020-09-06 04:39 | HMH.EDSOB ---
ED Disposition Clinical Impression: CHF exacerbation, Tachypnea on examination Disposition: Admitted as Observation Condition on Discharge: Good Referrals: Morro Fortune MD [Primary Care Provider] - - Critical Care Critical Care Time: No Attestation: On 09/06/20, the high probability of a clinically significant, sudden or life threatening deterioration of the following system(s) required my full and direct attention, intervention and personal management. The time I documented below is in addition to time spent performing reported procedures but includes the following listed in this critical care notation. Medical Decision Making - Medical Records Medical records reviewed: Yes: I reviewed the patient's medical records. - Marcial Inquiry Pt receiving controlled substance: No Vital Signs: 09/06/20 03:08 09/06/20 03:50 09/06/20 04:52 Temperature 98.1 F Temperature Source Oral Pulse Rate [Left] 89 79 79 Respiratory Rate 28 H 26 H 26 H Blood Pressure [Right Arm] 207/125 H 184/147 H 194/118 H Blood Pressure Mean [Right Arm] 152 159 143 Blood Pressure Source [Right Arm] Automatic Cuff Blood Pressure Position [Right Arm] Sitting 02 Sat by Pulse Oximetry 94 L 97 97 Oxygen Delivery Method Room Air Nasal Cannula Nasal Cannula Oxygen Flow Rate (LPM) 2 2 - Lab Data Lab results reviewed: Yes: I reviewed the patient's lab results. Lab Results 09/06/20 03:06: Specimen Source Left radial, O2 % 28%, 2 lpm nc, ABG pH 7.41, ABG pCO2 36.5, ABG pO2 40.9 L, ABG HCO3 22.6, ABG Total CO2 23.7, ABG O2 Saturation 77 L*, ABG Base Excess -2.0, Damián Test Acceptable 09/06/20 03:13: WBC 7.0, RBC 4.50 L, Hgb 13.7 L, Hct 43.3, MCV 96.3 H, MCH 30.4, MCHC 31.5 L, RDW 15.0, Plt Count 272, MPV 9.3, Neut % (Auto) 59.9, Lymph % (Auto) 29.6, [place] % (Auto) 8.5, Eos % (Auto) 1.6, Baso % (Auto) 0.4, Neut # (Auto) 4.2, Lymph # (Auto) 2.1, [place] # (Auto) 0.6, Eos # (Auto) 0.1, Baso # (Auto) 0.0 09/06/20 03:13: Sodium 140, Potassium 3.9, Chloride 104, Carbon Dioxide 27, Anion Gap 12.9, BUN 12, Creatinine 0.80, Estimated Creat Clear 166, Estimated GFR 101, Est GFR ( Amer) 122, Glucose 224 H, Calcium 9.6, Total Bilirubin 1.4 H, AST 33, ALT 28, Alkaline Phosphatase 95, Troponin I 0.01, NT-Pro-B Natriuret Pep 4270 H, Total Protein 7.1, Albumin 3.9, Globulin 3.2, Albumin/Globulin Ratio 1.2 09/06/20 03:13: SARS-CoV-2 IgG Ab (Rapid) Negative, SARS-CoV-2 IgM Ab (Rapid) Negative 09/06/20 03:30: Lactate 2.0 Result diagrams: 09/06/20 03:13 09/06/20 03:13 Orders (Tests/Meds): ED MEDICATIONS Discontinued Medications Generic Name Dose Route Start Last Admin Trade Name Freq PRN Reason Stop Dose Admin Albuterol/Ipratropium 3 ml 09/06/20 03:38 09/06/20 03:39 Albuterol/Ipratropium 3 Ml Neb IH 09/06/20 03:39 3 ml ONCE ONE Administration Dexamethasone Sodium Phosphate 8 mg 09/06/20 03:21 09/06/20 03:29 Dexamethasone 4mg/Ml 5ml Mdv IV 09/06/20 03:22 8 mg ONCE ONE Administration Furosemide 40 mg 09/06/20 03:21 09/06/20 03:29 Furosemide 40mg/4ml Vial IV 09/06/20 03:22 40 mg ONCE ONE Administration Morphine Sulfate 4 mg 09/06/20 04:57 09/06/20 04:59 Morphine 4mg/Ml Syringe IV 09/06/20 04:58 4 mg ONCE ONE Administration Ondansetron HCl 4 mg 09/06/20 04:57 09/06/20 04:59 Ondansetron 4mg/2ml Vial IV 09/06/20 04:58 4 mg ONCE ONE Administration ORDERS Category Date Time Status CT abdomen pelvis w con Stat Cat Scan 09/06/20 03:[address] chest wo/w con Stat Cat Scan 09/06/20 03:10 Ordered Troponin I Q3H Lab 09/06/20 06:30 Ordered Troponin I Q3H Lab 09/06/20 09:30 Ordered Blood Culture Stat Micro 09/06/20 03:30 Received - CT Data CT Scan: Abdomen, Pelvis, Chest Time Received: 05:06 Preliminary Findings: Abnormal (Mild bilateral pleural effusions) - ECG Data Tracing #1 I reviewed this ECG and interpreted as documented below: Normal Sinus Rhythm: Yes Arrhythmi
--- NOTE | 2020-09-06 05:57 | PC.NURSE ---
patient up to floor via wheelchair.
[2020-09-06 06:58] LABS: Troponin I 0.02 ng/ml (0.00-0.034)
[2020-09-06 10:10] LABS: POC Glucose,Bedside 317 (70-110)
--- NOTE | 2020-09-06 11:07 | P.CONPHA_ITS ---
[facility] Pharm[facility] VTE Monitoring - Patient Demographics Admission date: 09/06/20 Report Date: 09/06/20 Time: 11:07 Allergies/Adverse Reactions: Patient Allergies No Known Allergies Allergy (Verified 09/04/20 08:33) Height: 1.65 m Weight: 118.342 kg Patient Problems: Current Active Problems CHF exacerbation (Acute) Tachypnea on examination (Acute) - VTE Risk Labs: VTE Related Lab Results Hgb 13.7 g/dL (14.1-18.0) L 09/06/20 03:13 Hct 43.3 % (42.0-52.0) 09/06/20 03:13 Plt Count 272 K/mm3 (142-424) 09/06/20 03:13 BUN 12 mg/dl (9-20) 09/06/20 03:13 Creatinine 0.80 mg/dl (0.66-1.25) 09/06/20 03:13 Estimated Creat Clear 166 mL/min (50-200) 09/06/20 03:13 VTE Risk Level: Moderate Risk - Prophylaxis Types of VTE Prophylaxis: TEDS Knee High (AMINA HOSE ORDERED)
[2020-09-06 11:23] LABS: Troponin I < 0.01 ng/ml (0.00-0.034)
--- NOTE | 2020-09-06 11:30 | PC.NURSE ---
Spoke with Dr. Whitney about insulin ordered on patient explaining it was the wrong medication the patient takes at home and the wrong amount of units. Dr. Whitney stated he would adjust the order after talking to the patient. I also informed him finger sticks hadn't been ordered on the patient. He said he would put them in. Pt requested something to help bowels move. States he has chronic constipation. Milk of magnesia 30ml daily was ordered. Pt has requested a nicotine patch. Nicotine patch 21mg/ 24 hours was ordered and placed on L arm.
--- NOTE | 2020-09-06 11:38 | HMH.HP ---
*Admission Date: 09/06/20 *Chief complaint: chf exac *History of present illness: 55-year-old male presents the emergency department with acute shortness of breath. Patient states that he began having some shortness of breath about 3 days ago and progressively got worse and so he presented here to the emergency department. Patient denies any chest pain. Patient does state that he has a mild cough that is nonproductive. Patient denies any recent fever shakes or chills. Patient also denies any sore throat or headache. Patient also denies any body aches. Patient states that he has not had any sick contacts. Patient denies getting flu vaccinated. Patient does have a history of CHF. Patient also has a history of coronary artery disease. Patient also has a history of diabetes, hypertension, and hyperlipidemia. Patient received Solu-Medrol and also IV Lasix. Patient states he feels much better. Respiratory rate has decreased from 28 breaths/min down to 16 breaths/min. Patient also states he feels that he can breathe much better. comfortable this morning. Comorbid cad,pvd,dm,tobacco,htn,hld echo from april Conclusion 1. Moderately enlarged left atrium, normal left ventricular size, mild concentric left ventricular hypertrophy, visually estimated ejection fraction 40% with segmental wall motion abnormality described above, repeat study with Definity contrast is recommended. Diastolic parameters are inconclusive. 2. Mitral regurgitation likely in moderate range. 3. No significant pericardial effusion noted. [facility] History Medical History: Reports:: Asthma, Cardiomyopathy, Congestive Heart Failure, Chronic Obstructive Pulmonary Disease (COPD), Coronary Artery Disease, Cerebrovascular Accident, Diabetes Mellitus Type 2, Hyperlipidemia, Hypertension, Lung Disease, Myocardial Infarction, Peripheral Artery Disease Denies:: Cancer, Diabetes Mellitus Type 1, Home Oxygen, Internal Pacemaker, MRSA, Seizures *Have you ever received a pneumonia vaccine?: No *Have you received a flu vaccine this season?: No Other Medical History: Reports: Arthritis, Cataracts Laterality Cases: Left: Other Other Surgeries: Yes: Angiogram, Angioplasty, Appendectomy, Cardiac Catheterization, Cardiac Surgery, Cholecystectomy, Colonoscopy, Coronary Stent, Other. No: Pacemaker Amputation: No Fractures: No - *Social History Last grade of school completed: High school graduate Smoking Status: Current every day smoker Tobacco Type: cigarettes # Packs/Day (cigarettes): 1 #Yrs smoked (if former smoker): 1 Alcohol Intake: former Alcohol Intake Frequency:: other Substance Use Type: marijuana *Occupational Status:: disabled Housing: apartment Household Members: none *Travel in the last 8 weeks: None Family Hx:: Cancer, Coronary Artery Disease, Diabetes, Heart Attack, Hyperlipidemia, Hypertension, Stroke, Substance abuse, Alcoholism Review of Systems - Constitutional Reports lack of energy, Reports malaise, Reports weakness, Reports weight gain, Denies anorexia, Denies increased appetite - Eyes Denies change in vision - ENT Denies abnormal hearing - *Cardiovascular Reports shortness of breath with activity, Reports generalized swelling, Reports leg swelling, Reports lightheadedness, Reports shortness of breath when lying down, Reports shortness of breath causing sudden awakening, Reports foot swelling, Denies fainting - *Respiratory Denies chest congestion - *Gastrointestinal Reports constipation - *Genitourinary Denies difficulty urinating - *Musculoskeletal Reports joint pain - Integumentary/Breasts Denies change in skin color, Denies yellowing of the skin - *Neurologic Denies abnormal hearing, Denies abnormal speech, Denies dizziness, Denies localized weakness - Psychiatric Reports abnormal sleep pattern, Denies confusion - Endocrine Denies cold intolerance, Denies excessive sweating - Hematologic/Lymphatic Denies easy bleeding, Den
[2020-09-06 11:42] LABS: POC Glucose,Bedside 322 (70-110)
[2020-09-06 16:14] LABS: POC Glucose,Bedside 363 (70-110)
--- NOTE | 2020-09-06 18:06 | PC.NURSE ---
A&OX4. PT HAS TOLERATED 2L NC WELL THROUGHOUT SHIFT. RESPIRATIONS REGULAR AND UNLABORED. COARSE CRACKLES SCATTERED THROUGHOUT LUNGS AND THEY ARE DIMINISHED. OCCASIONAL NONPRODUCTIVE COUGH NOTED. +1 PITTING EDEMA NOTED TO BLE. HAND CHIEF GUARD EQUAL. +2 PULSES NOTED THROUGHOUT. ACTIVE BOWEL SOUNDS HEARD IN ALL 4 QUADRANTS. SOFT AND NONTENDER ABDOMEN. NO BM REPORTED THUS FAR. NICOTINE PATCH NOTED TO L ARM. PT HAS REPORTED PAIN SEVERAL TIMES THIS SHIFT. HE IS RECEIVING SCHEDULED PERCOCET AND DID RECEIVE ONE DOSE OF MORPHINE BEFORE IT WAS DC PER DR RANDHAWA. PT HAS SAT UP ON THE SIDE OF THE BED MOST OF THE DAY. PT IS CURRENTLY RESTING IN BED. BED IN LOWEST POSITION. CALL LIGHT WITHIN REACH. VSS. WILL CONTINUE TO MONITOR.
[2020-09-06 21:42] LABS: POC Glucose,Bedside 368 (70-110)
[2020-09-07] VITALS (8 sets, daily range): BP systolic 131–148; BP diastolic 55–93; PULSE 50–94; RESP 16–20; TEMP 36.6–37; O2SAT 93–100; BMI 42.0
--- NOTE | 2020-09-07 04:25 | PC.NURSE ---
shift summary, no acute changes since prior assessment, pt has rested well t/o shift, has had 950 mL urine output so far this shift, pt started shift on 2L NC, had O2 sats of 100%, pt placed on room air with O2 sats of 98%, respiratory rate has been 16-18, has had no complaints of SOA or CP
--- NOTE | 2020-09-07 05:35 | PC.NURSE ---
patient off floor to CT.
--- NOTE | 2020-09-07 05:40 | PC.NURSE ---
lung sounds diminished
--- NOTE | 2020-09-07 05:43 | PC.NURSE ---
patient back up to floor from CT.
--- NOTE | 2020-09-07 05:52 | PC.NURSE ---
pt went down for Xray, came back, room air checked, 95%
--- NOTE | 2020-09-07 06:00 | XR_ITS ---
PROCEDURE: XR CHEST 2V CLINICAL HISTORY: chf COMPARISON: CR XR CHEST 2V from 08/03/2019 CR XR CHEST 2V from 02/25/2020 CR XR CHEST PORTABLE from 05/02/[address] CHEST WO/W CON from 09/06/2020 FINDINGS: Again noted is mild generalized cardiomegaly. There is pulmonary vascular congestion with mild pulmonary venous hypertension. There is lateral elevation of the right hemidiaphragm suggesting a small right subpulmonic pleural effusion. The degree of vascular congestion is similar in the previous studies from February and April of this year. IMPRESSION: Persistent mild generalized cardiomegaly with pulmonary congestion and small right pleural effusion all findings consistent with mild chronic congestive heart failure, no definite pneumonic infiltrate seen Dictated by: Dr. Manuelito Rodriguez MD 09/07/2020 09:14 Dr. Manuelito Rodriguez MD in [place] 09/07/2020 09:14
[2020-09-07 06:01] LABS: POC Glucose,Bedside 326 (70-110)
[2020-09-07 07:01] LABS: Basophils % 0.4 % (0.1-2.0); Eosinophils # 0.2 K/mm3 (0.0-0.4); Eosinophils % 2.4 % (0.1-12.0); Hemoglobin 13.1 g/dL (14.1-18.0); Lymphocytes # 1.8 K/mm3 (0.7-4.5); Lymphocytes % 20.8 % (10-50); Mean Corpuscular HGB Conc 31.8 g/dL (31.8-35.4); Mean Corpuscular Hemoglobin 30.2 pg (27.0-31.2); Mean Platelet Volume 9.6 fl (7.4-10.4); Monocytes # 0.5 K/mm3 (0.1-1.0); Monocytes % 5.7 % (1.7-9.3); Neutrophils % 70.7 % (37.0-80.0); Platelet Count 258 K/mm3 (142-424); Red Blood Count 4.32 M/mm3 (4.60-6.20); Red Cell Distribution Width 15.2 % (11.5-17.5); White Blood Count 8.4 K/mm3 (4.8-10.8)
[2020-09-07 07:09] LABS: Hemoglobin A1C 9.9 % (4.0-6.0)
[2020-09-07 07:17] LABS: Alanine Aminotransferase 32 U/L (12-78); Albumin Level 3.6 g/dl (3.5-5.0); Albumin/Globulin Ratio 1.2 (1.1-1.8); Alkaline Phosphatase 93 U/L (38-126); Anion Gap 10.9 mEq/L (5-15); Aspartate Amino Transferase 30 U/L (17-59); Bilirubin,Total 0.7 mg/dl (0.2-1.3); Blood Urea Nitrogen 22 mg/dl (9-20); Calcium 9.3 mg/dl (8.4-10.2); Carbon Dioxide 29 mmol/L (22.0-30.0); Chloride 102 mmol/L (98-107); Creatinine Clearance Estimated 64 mL/min (50-200); Estimated Glomerular Filt Rate 70 ml/min (>60); GFR (African American) 84 ML/MIN (>60); Globulin 3.1 g/dL (1.3-3.2); Glucose 318 mg/dl (74-100); Potassium 3.9 mmoL/L (3.5-5.1); Sodium 138 mmol/L (136-145); Total Protein,Serum 6.7 g/dl (6.3-8.2)
--- NOTE | 2020-09-07 14:53 | HMH.ACPN2 ---
Internal Medicine - PN: Subj *Date: 09/07/20 *Time: 14:53 Interval history: Patient had an uneventful night. We are achieving good diuresis with IV Lasix. He has had an 8 pound weight loss. Still having some dyspnea with exertion. His peripheral edema is improved. He is also reporting episodic midepigastric and right upper quadrant pain. He is status post gallbladder. He did have some previous complaints of constipation. Overall he feels better. Exam Vital signs and Labs for Last 24 Hours: Temp Pulse Resp BP Pulse Ox 98.5 F 66 16 147/86 H 98 09/07/20 12:00 09/07/20 12:00 09/07/20 12:00 09/07/20 12:00 09/07/20 12:00 Laboratory Results - last 24 hr 09/06/20 15:35: POC Glucose 363 H* 09/06/20 21:18: POC Glucose 368 H* 09/07/20 05:19: POC Glucose 326 H* 09/07/20 06:30: WBC 8.4, RBC 4.32 L, Hgb 13.1 L, Hct 41.0 L, MCV 95.0 H, MCH 30.2, MCHC 31.8, RDW 15.2, Plt Count 258, MPV 9.6, Neut % (Auto) 70.7, Lymph % (Auto) 20.8, [place] % (Auto) 5.7, Eos % (Auto) 2.4, Baso % (Auto) 0.4, Neut # (Auto) 6.0, Lymph # (Auto) 1.8, [place] # (Auto) 0.5, Eos # (Auto) 0.2, Baso # (Auto) 0.0 09/07/20 06:30: Sodium 138, Potassium 3.9, Chloride 102, Carbon Dioxide 29, Anion Gap 10.9, BUN 22 H D, Creatinine 1.10 D, Estimated Creat Clear 64, Estimated GFR 70, Est GFR ( Amer) 84 D, Glucose 318 H, Calcium 9.3, Total Bilirubin 0.7, AST 30, ALT 32, Alkaline Phosphatase 93, Total Protein 6.7, Albumin 3.6, Globulin 3.1, Albumin/Globulin Ratio 1.2 09/07/20 06:30: Hemoglobin A1c 9.9 H I & O for Last 24 hours: Intake & Output 09/04/20 09/05/20 09/06/20 09/07/20 23:59 23:59 23:59 23:59 Intake Total 1330 / 1330 480 / 480 Output Total 3425 / 4375 2350 / 2350 Balance -2094 / -3044 -1870 / -187 Weight 260 lb 14.4 oz 252 lb 8 oz - Constitutional no acute distress, obese, cooperative - *Routine HEENT Exam Head: Present: normocephalic Eye: Present: EOMI, PERRL ENT: Present: mucous membranes moist - *Routine Neck Exam Present: supple. Absent: lymphadenopathy - *Routine Respiratory Exam Present: crackles. Absent: accessory muscle use - *Routine Cardiovascular Exam Present: RRR - *Routine Abdominal Exam Present: soft, tenderness, obese. Absent: mass - *Routine Extremities Exam Present: edema. Absent: cyanosis, clubbing, calf tenderness, extremity cold to touch - *Routine Skin Exam Present: warm. Absent: rash - *Routine Neurological Exam Present: alert, oriented X3 Assessment and Plan (1) CHF exacerbation Status: Acute Category: Medical Code(s): I50.9 - Heart failure, unspecified (2) Tachypnea on examination Status: Acute Category: Medical Code(s): R06.82 - Tachypnea, not elsewhere classified (3) ASCVD (arteriosclerotic cardiovascular disease) Status: Chronic Category: Medical Code(s): I25.10 - Atherosclerotic heart disease of [place] coronary artery without angina pectoris (4) Abnormal EKG Status: Acute Category: Medical Code(s): R94.31 - Abnormal electrocardiogram [ECG] [EKG] (5) Abnormal ankle brachial index (JOSELYN) Status: Chronic Category: Medical Code(s): R68.89 - Other general symptoms and signs (6) Biventricular congestive heart failure Status: Chronic Category: Medical Code(s): I50.82 - Biventricular heart failure (7) Congestive heart failure Status: Chronic Qualifiers: Heart failure type: unspecified Heart failure chronicity: unspecified Qualified Code(s): I50.9 - Heart failure, unspecified Category: Medical Code(s): I50.9 - Heart failure, unspecified (8) Heart failure, chronic, with acute decompensation Status: Acute Category: Medical Code(s): I50.9 - Heart failure, unspecified (9) Ischemic cardiomyopathy Status: Chronic Category: Medical Code(s): I25.5 - Ischemic cardiomyopathy (10) Obesity (BMI 30-39.9) Status: Chronic Category: Medical Code(s): E66.9 - Obesity, unspecified (11) CAD (coronary arter
--- NOTE | 2020-09-07 14:56 | CT_ITS ---
PROCEDURE: CT ABDOMEN PELVIS W CON CLINICAL INDICATION: abdominal pain COMPARISON: CT CT ABDOMEN PELVIS W CON from 09/06/2020 TECHNIQUE: IV Contrast: 75ML OPTIRAY 350 Oral Contrast 20ml Gastroview Axial images obtained with sagittal and coronal reformats. All CT scans at the facility use one or more dose reduction, viz: automated exposure control, ma/kV adjustment per patient size (including targeted exams where dose is matched to indication, i.e. head), or iterative reconstruction technique. FINDINGS: Lower thorax: There is stable generalized cardiomegaly with less vascular congestion seen in the lower lobes than what was seen on the previous study. There has been decrease in size of the bilateral pleural effusions again right side slightly larger than left. ABDOMEN: Liver: The liver is normal in size showing mild diffuse fatty infiltration, no focal lesions. Gallbladder: Post cholecystectomy Pancreas: No masses or peripancreatic fluid collections. Spleen: The spleen is normal size again showing a couple of calcified granulomata. Adrenals: unremarkable Kidneys/ureters: The kidneys are normal in size and show symmetrical function. Again noted is mild diffuse stranding of Gerotas' fascia bilaterally. ABDOMEN & PELVIS: Stomach bowel: There is mild dilatation of the duodenal sweep but fairly similar to the previous study. This may reflect mild ileus versus duodenitis. And small bowel appear normal. There is mild scattered stool and gas seen throughout the colon mixed with oral contrast. Peritoneum: No abnormal fluid collections. There has been interval resolution of the ascitic fluid along the right gutter seen on the previous exam. No obvious inflammatory changes. No free air. Lymph nodes: Again noted is the soft tissue density projecting just to the right of the abdominal aorta and just inferior to the inferior vena cava measuring 1.7 by 2.6 by 2.9 cm. This likely is a slightly enlarged node in this is stable and unchanged in size from the previous exam. Vasculature: No evidence of abdominal aortic aneurysm. No retroperitoneal hemorrhage evident. There is diffuse arthrosclerotic calcification of the abdominal aorta and proximal common iliac arteries. Bones: There are mild multilevel degenerate changes of the lower thoracic and lower lumbar spine. PELVIS: Reproductive: unremarkable Bladder: The urinary bladder is partially decompressed, there is no free fluid in the pelvis. The prostate is normal in size. Appendix: The appendix is not definitely visualized but no pericecal inflammatory changes. IMPRESSION: Interval resolution of ascitic fluid right pericolic gutter, persistent soft tissue density adjacent to the mid abdominal aorta likely a slightly enlarged node, somewhat moderate diffuse dilatation of the duodenal sweep with slightly prominent folds possibly reflecting some degree of duodenitis. Stable fatty steatosis without focal liver lesions Dictated by: Dr. aMnuelito Rodriguez MD 09/07/2020 18:57 Dr. Manuelito Rodriguez MD in [place] 09/07/2020 18:57
--- NOTE | 2020-09-07 16:20 | PC.NURSE ---
PT IS SITTING UP ON THE SOB TALKING TO VISITOR AT THIS TIME. ALERT AND ORIENTED X4. PT STATES HE IS VERY CONCERNED ABOUT HOW HIGH HIS BLOOD SUGARS HAVE BEEN ( PT IS NOW ON HIGH INTENSITY SLIDING SCALE PER ). PT ALSO STATES THAT HE IS WANTING TO HAVE OXYGEN AT HOME WHEN HE IS DISCHARGED FROM THE HOSPITAL B/C HE FEELS LIKE HE CAN BREATHE MUCH BETTER WITH IT. PT'S O2 NC WAS REMOVED FOR 1O MIN. O2 SATURATION WAS 93%. PT STATES HE DOES HAVE A CPAP AT HOME BUT HE STATES HE FEELS LIKE THE MACHINE CAUSES HIM MORE PROBLEMS WITH HIS BREATHING. PT WAS ABLE TO TOLERATE TAKING A SHOWER THIS SHIFT BUT WHEN HE GOT OUT OF THE SHOWER HE WAS ADAMANT HE NEEDED HIS OXYGEN BACK ON. LUNG SOUNDS DIMINISHED WITH FINE CRACKLES IN THE RT BASE. ABDOMEN SOFT/ OBESE WITH ACTIVE BOWEL SOUNDS. 3+ PITTING EDEMA IN BLE. WILL CONTINUE TO MONITOR.
[2020-09-07 21:18] LABS: POC Glucose,Bedside 316 (70-110)
[2020-09-08] VITALS (7 sets, daily range): BP systolic 126–162; BP diastolic 53–90; PULSE 55–75; RESP 14–20; TEMP 36.6–37.2; O2SAT 94–97; BMI 42.7; BMI 42.6
[2020-09-08 03:46] LABS: POC Glucose,Bedside 353 (70-110)
[2020-09-08 03:46] LABS: POC Glucose,Bedside 437 (70-110)
--- NOTE | 2020-09-08 04:43 | PC.NURSE ---
shift summary, pt has rested t/o shift, lung sounds diminished, no complaints of SOA or CP, pt has been on room air t/o shift with sats 95-96%, pt has complained of pain in his back and was treated per DEC, pt is using urinal independently and has had 1950 mL of clear yellow urine out so far on this shift, pt alarm security or surveillance monitor has shown NSR as well as bigeminy one time, pt HR 59-75 and systolic BP 138-162, pt did have a bowel movement this shift
[2020-09-08 07:21] LABS: Basophils # 0.1 K/mm3 (0-0.2); Basophils % 0.6 % (0.1-2.0); Eosinophils # 0.2 K/mm3 (0.0-0.4); Eosinophils % 2.1 % (0.1-12.0); Hematocrit 41.7 % (42.0-52.0); Hemoglobin 13.7 g/dL (14.1-18.0); Lymphocytes # 2.1 K/mm3 (0.7-4.5); Lymphocytes % 23.9 % (10-50); Mean Corpuscular HGB Conc 32.9 g/dL (31.8-35.4); Mean Corpuscular Hemoglobin 30.7 pg (27.0-31.2); Mean Corpuscular Volume 93.3 fl (80-94); Mean Platelet Volume 9.6 fl (7.4-10.4); Monocytes # 0.8 K/mm3 (0.1-1.0); Monocytes % 8.8 % (1.7-9.3); Neutrophils # 5.6 K/mm3 (1.8-7.8); Neutrophils % 64.6 % (37.0-80.0); Platelet Count 271 K/mm3 (142-424); Red Blood Count 4.47 M/mm3 (4.60-6.20); Red Cell Distribution Width 15.4 % (11.5-17.5); White Blood Count 8.7 K/mm3 (4.8-10.8)
--- NOTE | 2020-09-08 07:21 | PC.NURSE ---
pt rang out around 0630 and stated when he laid down he couldn't breathe, room air sat checked and found to be 99%, pt placed on 2L NC for comfort, states he is wheezing, no wheezes heard when auscultating
[2020-09-08 07:25] LABS: Chloride 99 mmol/L (98-107)
[2020-09-08 07:26] LABS: Potassium 3.7 mmoL/L (3.5-5.1); Sodium 137 mmol/L (136-145)
[2020-09-08 07:28] LABS: Alanine Aminotransferase 35 U/L (12-78); Aspartate Amino Transferase 29 U/L (17-59); Blood Urea Nitrogen 22 mg/dl (9-20); Creatinine Clearance Estimated 64 mL/min (50-200); Estimated Glomerular Filt Rate 70 ml/min (>60); GFR (African American) 84 ML/MIN (>60)
[2020-09-08 07:29] LABS: Albumin Level 3.8 g/dl (3.5-5.0); Alkaline Phosphatase 73 U/L (38-126); Anion Gap 9.7 mEq/L (5-15); Bilirubin,Total 0.9 mg/dl (0.2-1.3); Calcium 9.5 mg/dl (8.4-10.2); Carbon Dioxide 32 mmol/L (22.0-30.0); Glucose 261 mg/dl (74-100)
[2020-09-08 07:34] LABS: Albumin/Globulin Ratio 1.2 (1.1-1.8)
[2020-09-08 08:00] LABS: POC Glucose,Bedside 187 (70-110)
--- NOTE | 2020-09-08 08:05 | PC.NURSE ---
Routine assessment completed at this time. Pt. A&O X4. Lungs diminished, Heart at RR. Respirations easy and even, BS present x4 quad. Pt. wishes to have AM medications, Pt. noted to be NPO, unable to give medications due to NPO order. MD will be rounding shortly, and will discuss NPO status with MD. Pt. v/u.
--- NOTE | 2020-09-08 09:05 | CA_ITS ---
APPROVED REPORT EXAM: Comprehensive 2D, Doppler, and color-flow Echocardiogram Food Beverage Attendant: Rhea Herrera RDCS Ht: 5 ft 4 in Wt: 256lbs BSA: 2.17 BP: 157/67 mmHg Indications: CHF,PVD,COPD,HTN,HLP,CAD,CM DEFINITY GIVEN 2D Dimensions LVOT 2.01 cm (M/F) 1.5-2.5 M-Mode Dimensions RVDd 3.68 cm (0.9-2.6) LA Diam 4.48 cm (1.9-4.0) LVDd 6.45 cm (3.5-5.7) Ao Diam 3.15 cm (2.0-3.7) LVDs 4.65 cm (3.5-5.7) IVSd 1.20 cm (0.6-1.1) PWd 1.24 cm (0.6-1.1) EF (Teich) 53.00% FS 27.90% EDV (Teich) 212.20 mL ESV (Teich) 99.80 mL LV Diastology E Decel Time 213.00 (160-240 msec) E/A Ratio 2.2 MED E' 4.70 (< 7 cm/sec) E'/MED E' Ratio 18.91 (>14) LAT E' 6.80 (<10 cm/sec) E/LAT E' Ratio 13.07 (>14) Mitral Valve MV E Max Sung. 89.00 (40-130 cm/s) MV A Velocity 41.00 (40-130 cm/s) E/A Ratio 2.17 MV Decel. Time 213.00 (160-240 ms) MV PHT 62.00 ms Tricuspid Valve TR P. Velocity 288.00 cm/s RAP Estimate 10.00 mmHg RVSP 43.10 mmHg Left Ventricle Technically very difficult study, despite Definity contrast endocardial surfaces are poorly visualized. Left atrium is mildly enlarged, left ventricle is mildly dilated, reduced left ventricular systolic function, visually estimated ejection fraction approximately 30%, there is marked hypo to akinesis involving the inferior wall, basal septum, inferior basal and posterior basal wall. Diastolic parameters are inconclusive. There is no left ventricular thrombus seen. Right Ventricle Right atrium and right ventricle mildly enlarged with normal contractility. Aortic Valve Aortic valve is thickened and calcified, leaflet continue to display good mobility, there is no aortic stenosis or aortic insufficiency. Mitral Valve Mitral valve leaflets are minimally thickened, there is no mitral stenosis, there is moderate to severe mitral regurgitation. Tricuspid Valve Tricuspid valve grossly normal, there is mild tricuspid regurgitation, tricuspid regurgitation jet velocity is inadequate for calculation of the right ventricular systolic pressure. Pulmonic Valve Pulmonic valve is poorly visualized. Great Vessels Aortic root is normal size. Pericardium No significant pericardial effusion noted. Conclusion 1. Technically difficult study as described above. 2. Biatrial enlargement, mildly dilated left ventricle, reduced left ventricular systolic function, visually estimated ejection fraction 30% with multiple segmental wall motion abnormalities as described above, diastolic parameters are inconclusive. There is no left ventricular thrombus seen. 3. Mildly enlarged right ventricle with normal contractility. 4. Thickened and calcified aortic valve without aortic stenosis or aortic insufficiency. 5. Moderate to severe mitral and mild tricuspid regurgitation. 6. No significant pericardial effusion noted. Electronically signed by : Idris Rhodes, 09/09/2020 05:55:18
--- NOTE | 2020-09-08 09:06 | HMH.ACPN2 ---
Internal Medicine - PN: Subj *Date: 09/08/20 *Time: 09:06 Interval history: pt sitting up on side of bed, states when he lays down he becomes soa Exam Vital signs and Labs for Last 24 Hours: Temp Pulse Resp BP Pulse Ox 98.9 F 65 18 126/76 95 09/08/20 08:00 09/08/20 08:00 09/08/20 08:00 09/08/20 08:00 09/08/20 08:00 Laboratory Results - last 24 hr 09/07/20 11:43: POC Glucose 353 H* 09/07/20 15:43: POC Glucose 437 H* 09/07/20 20:12: POC Glucose 316 H* 09/08/20 05:20: POC Glucose 187 H 09/08/20 06:30: WBC 8.7, RBC 4.47 L, Hgb 13.7 L, Hct 41.7 L, MCV 93.3, MCH 30.7, MCHC 32.9, RDW 15.4, Plt Count 271, MPV 9.6, Neut % (Auto) 64.6, Lymph % (Auto) 23.9, [place] % (Auto) 8.8, Eos % (Auto) 2.1, Baso % (Auto) 0.6, Neut # (Auto) 5.6, Lymph # (Auto) 2.1, [place] # (Auto) 0.8, Eos # (Auto) 0.2, Baso # (Auto) 0.1 09/08/20 06:30: Sodium 137, Potassium 3.7, Chloride 99, Carbon Dioxide 32 H, Anion Gap 9.7, BUN 22 H, Creatinine 1.10, Estimated Creat Clear 64, Estimated GFR 70, Est GFR ( Amer) 84, Glucose 261 H, Calcium 9.5, Total Bilirubin 0.9, AST 29, ALT 35, Alkaline Phosphatase 73, Total Protein 7.0, Albumin 3.8, Globulin Not Reportable, Albumin/Globulin Ratio 1.2 I & O for Last 24 hours: Intake & Output 09/05/20 09/06/20 09/07/20 09/08/20 11:59 11:59 11:59 11:59 Intake Total 370 / 370 1440 / 1440 1440 / 1440 Output Total 2525 / 2525 3250 / 3250 3400 / 3400 Balance -2155 / -2155 -1810 / -1810 -1959 / -1959 Weight 260 lb 14.4 oz 252 lb 8 oz 256 lb 6 oz Microbiology Reports for the Last 24 Hours: Microbiology 09/06/20 03:30 Blood Blood Culture - Preliminary NO GROWTH AFTER 48 HOURS 09/06/20 03:30 Blood Blood Culture - Preliminary NO GROWTH AFTER 48 HOURS - Constitutional no acute distress, obese - *Routine HEENT Exam Head: Present: normocephalic Eye: Present: PERRL ENT: Present: mucous membranes moist - *Routine Neck Exam Present: supple. Absent: lymphadenopathy - *Routine Respiratory Exam Present: decreased breath sounds, wheezes - *Routine Cardiovascular Exam Present: RRR - *Routine Abdominal Exam Present: soft, normoactive bowel sounds. Absent: tenderness - *Routine Extremities Exam Present: normal capillary refill. Absent: cyanosis, clubbing, edema - *Routine Skin Exam Present: warm. Absent: rash - *Routine Neurological Exam Present: alert, oriented X3 - Routine Psychiatric Exam Present: normal affect Assessment and Plan (1) CHF exacerbation Status: Acute Category: Medical Code(s): I50.9 - Heart failure, unspecified (2) Tachypnea on examination Status: Acute Category: Medical Code(s): R06.82 - Tachypnea, not elsewhere classified (3) ASCVD (arteriosclerotic cardiovascular disease) Status: Chronic Category: Medical Code(s): I25.10 - Atherosclerotic heart disease of [place] coronary artery without angina pectoris (4) Abnormal EKG Status: Acute Category: Medical Code(s): R94.31 - Abnormal electrocardiogram [ECG] [EKG] (5) Abnormal ankle brachial index (JOSELYN) Status: Chronic Category: Medical Code(s): R68.89 - Other general symptoms and signs (6) Biventricular congestive heart failure Status: Chronic Category: Medical Code(s): I50.82 - Biventricular heart failure (7) Congestive heart failure Status: Chronic Qualifiers: Heart failure type: unspecified Heart failure chronicity: unspecified Qualified Code(s): I50.9 - Heart failure, unspecified Category: Medical Code(s): I50.9 - Heart failure, unspecified (8) Heart failure, chronic, with acute decompensation Status: Acute Category: Medical Code(s): I50.9 - Heart failure, unspecified (9) Ischemic cardiomyopathy Status: Chronic Category: Medical Code(s): I25.5 - Ischemic cardiomyopathy (10) Obesity (BMI 30-39.9) Status: Chronic Category: Medical Code(s): E66.9 - Obesity, unspe
--- NOTE | 2020-09-08 10:22 | SW/DCPLANNER ---
I have spoke with this patient regarding discharge plans. Patient stated that he resides at an apartment on the second floor alone. Patient stated that he had some concerns that he would like to discuss with me. Patient stated that he has a CPAP at home but doesnt think it helps much, expressed an interest in nebulizer machine or home O2: I have discussed a patient must qualify for these machines and I would follow up with MD. Patient expressed an interest in home health services. I will follow up with MD and patient at time of discharge regarding home health services. Patient has no other needs at this time. I will continue to follow up with patient, MD, RA jany and home health services.
--- NOTE | 2020-09-08 11:50 | PC.NURSE ---
Dio FORD, in room speaking with pt. Tammie received for pt. to have diabetic, low sodium diet. order read back and verified.
--- NOTE | 2020-09-08 11:57 | HMH.CNCARD ---
History of Present Illness Consult date: 09/08/20 Requesting physician: Morro Fortune Consult reason: congestive heart failure Chief complaint: Shortness of breath Additional Medical History:: 1. Coronary artery disease A. Cardiac catheterization 08-26-2015, severe two-vessel coronary artery disease with an occluded proximal circumflex artery and occluded ostial dominant RIGHT coronary artery. Mild to moderate proximal left anterior descending disease and moderate mid left anterior descending disease. Systolic congestive heart failure with ejection fraction of 35 percent. Normal renal arteries. Complex severe infrarenal abdominal aortic eccentric occlusion creating a 40 mm transverse stenotic gradient from proximal to distal. Severe pulmonary hypertension. The plan was to treat medically for the time being with strong emphasis on risk factor modification. B. Ischemic cardiomyopathy, medical therapy. C. Echocardiogram 07/2015, EF of 30-40% with moderate global hypokinesis of the LEFT ventricle. D. Echo, 11/2018, moderate LAE, mildly dilated LV with conc LVH and LVEF of 30% with marked hypo to akinesis of the basal septum, inferior, inferobasal and inferolateral wall. Mildly enlarged RA/RV. Calcified AV without stenosis. Moderate to severe MR, mild TR. E. Cardiac cath, 06/2018, JUAN to mild LAD/LEft main which supplies the RCA and Circ distribution through collaterals. EF 40-45% with large Inf wall severe hypokinesis. LVEDP of 35 mm Hg indicative of severe biventricular CHF with severe pulmonary HTN. RA pressure is 15 mm Hg. F. Left heart catheterization, 01/2019,ANGIOGRAPHIC RESULTS: 1. The left main artery normal 2. The left anterior descending artery has proximal tortuous 20-30% stenosis followed by additional 30% stenoses at the junction of the first septal imaging specialist. The LDL was tortuous and has 30-40% mid vessel stenoses. The very distal LAD is occluded but then reconstitutes via left to left collaterals at the apical level 3. The circumflex artery ostially occluded 4. The right coronary artery proximally occluded but fills via left to right collaterals from the LAD 5. The CARRASCO ventriculogram reveals severe left ventricular dilatation reduced ejection fraction 30-35% 6. The left ventricular end-diastolic pressure 20 mmHg IMPRESSION: 1. Coronary artery disease as described above 2. Systolic dysfunction as described above 3. Mildly elevated LVEDP G. Echo, 03/16/2019, technically difficult study. Mild LAE, mild LV dilatation with EF 45% and no regional wall motion abnormality. Diastolic parameters inconclusive. Mild MR and TR. 2. Peripheral arterial disease A. Drug-eluting stent placed to anterior tibialis trunk on November 24, 2015. Dual antiplatelet therapy recommended. B. BMS to right SFA and PLASTER MOLDER, 07/2018 C. JUAN to Left SFA and popliteal artery. Single vessel runoff with small vessel disease noted. 06/2018 D. Abnormal JOSELYN, 03/2019 E. LE runoff showing small vessel disease below the knee, 03/2019, medical therapy recommended. 3. Diabetes mellitus, on insulin with poor control. 4. Hypertension A. Echocardiogram, 05/02/2020, 1. Moderately enlarged left atrium, normal left ventricular size, mild concentric left ventricular hypertrophy, visually estimated ejection fraction 40% with segmental wall motion abnormality described above, repeat study with Definity contrast is recommended. Diastolic parameters are inconclusive. 2. Mitral regurgitation likely in moderate range. 3. No significant pericardial effusion noted 5. Hyperlipidemia A. History of statin therapy currently discontinued due to bilateral leg pain, 04/2020 B. LDL 113 and HDL 38, 05/02/2020 6. Obesity 7. Tobacco dependence, ongoing 8. Chronic kidney disease stage 2-3 9. Osteomyelitis of LEFT foot. November 2015 10. Chronic neck pain A. C-spine MRI, 10/2017, 1. Abnormal MRI of the cervical spine with cervical spondylosis wi
[2020-09-08 12:08] LABS: POC Glucose,Bedside 288 (70-110)
--- NOTE | 2020-09-08 16:55 | DIET.NUTRFU ---
Nutrition assessment, IP/consult completed. Pt with poor resources and health literacy, limited compliance with nutrition related recommendations. Education level appropriate low sodium/heart healthy and DM diet edu/counseling with food insecurity given. Will continue to follow up with continued counseling/education t/o stay.
--- NOTE | 2020-09-08 18:40 | PC.NURSE ---
16:45 Late Entry - Routine reassessment completed. BLE with 1+ pitting edema, noted to be less than this am. No further acute changes from previous assessment. Lungs remain, diminished, Heart remains at RRR. BS present x4 quad. Pt. reports pain at 9/10, see EMAR for medications given. FSBS at 459, Dr. Hardy notified, nurse to give 20 units insulin and MD reports he will put in order to change insulin to high intensity insulin regiment. Order read back and verified. Insulin given, Pt. denies needs, will continue to monitor.
[2020-09-08 20:41] LABS: POC Glucose,Bedside 459 (70-110)
[2020-09-08 22:19] LABS: POC Glucose,Bedside 364 (70-110)
[2020-09-09] VITALS: BP 153/96; PULSE 60; PULSE 66; RESP 14; TEMP 36.8; O2SAT 96
--- NOTE | 2020-09-09 03:58 | PC.NURSE ---
Pt is A&Ox4 and has ambulated in room independently and tolerated well. Pt has c/o pain 2x thus far, medicated per MAR and pt reports pt is tolerable right now and that he will talk to Dr. Fortune because they need to do something else because my back and side are killing me. At the change of shift, RN contacted MD electronic drafter (Antony) about pain level and pt's request for more pain medicine although MD did not approve any other narcotics, pt is aware. RLE 2+ pitting edema, LLE 1+ non-pitting, Great toes and through 4th toes absent d/t healed amputation. Lungs CTA, diminished bases. Pt has left O2 off during the day and only wearing at night in lieu of CPAP. SaO2 94-97%. ABD is soft, non-tender, with active BS. Pt reports BM during previous shift. Pt denies any N/V/D. Output thus far is 3,050ml. VSS, call light within reach.
[2020-09-09 04:00] VITALS: BP 120/60; PULSE 64; RESP 14; TEMP 36.7; O2SAT 96
--- NOTE | 2020-09-09 06:47 | PC.NURSE ---
Pt had a total urine output this shift of 3,450 ml
[2020-09-09 07:07] VITALS: BMI 40.3
[2020-09-09 07:30] LABS: Basophils # 0.1 K/mm3 (0-0.2); Basophils % 0.7 % (0.1-2.0); Eosinophils # 0.2 K/mm3 (0.0-0.4); Eosinophils % 2.5 % (0.1-12.0); Hematocrit 43.9 % (42.0-52.0); Hemoglobin 14.2 g/dL (14.1-18.0); Lymphocytes # 2.2 K/mm3 (0.7-4.5); Lymphocytes % 30.6 % (10-50); Mean Corpuscular HGB Conc 32.4 g/dL (31.8-35.4); Mean Corpuscular Hemoglobin 30.9 pg (27.0-31.2); Mean Corpuscular Volume 95.4 fl (80-94); Mean Platelet Volume 9.7 fl (7.4-10.4); Monocytes # 0.6 K/mm3 (0.1-1.0); Monocytes % 8.9 % (1.7-9.3); Neutrophils # 4.1 K/mm3 (1.8-7.8); Neutrophils % 57.4 % (37.0-80.0); Platelet Count 247 K/mm3 (142-424); Red Cell Distribution Width 15.4 % (11.5-17.5); White Blood Count 7.2 K/mm3 (4.8-10.8)
[2020-09-09 07:38] LABS: Chloride 100 mmol/L (98-107); Potassium 4.1 mmoL/L (3.5-5.1); Sodium 137 mmol/L (136-145)
[2020-09-09 07:41] LABS: Anion Gap 10.1 mEq/L (5-15); Blood Urea Nitrogen 27 mg/dl (9-20); Calcium 9.5 mg/dl (8.4-10.2); Carbon Dioxide 31 mmol/L (22.0-30.0); Creatinine Clearance Estimated 59 mL/min (50-200); Estimated Glomerular Filt Rate 63 ml/min (>60); GFR (African American) 76 ML/MIN (>60); Glucose 217 mg/dl (74-100)
--- NOTE | 2020-09-09 07:59 | HMH.PNCARD ---
Subjective Date: 09/09/20 Time: 08:00 Principal diagnosis: CHF Interval history: 55-year-old black male in bed in no acute distress. States he slept well last night and is feeling much better. He has had 10 L of fluid output since he was admitted and about a 20 pound weight loss. States he is ready to go home. Exam Vital signs and Labs for Last 24 Hours: Temp Pulse Resp BP Pulse Ox 98.0 F 64 14 120/60 96 09/09/20 04:00 09/09/20 04:00 09/09/20 04:00 09/09/20 04:00 09/09/20 04:00 Laboratory Results - last 24 hr 09/08/20 05:20: POC Glucose 187 H 09/08/20 11:36: POC Glucose 288 H 09/08/20 16:33: POC Glucose 459 H* 09/08/20 21:33: POC Glucose 364 H* 09/09/20 06:43: WBC 7.2, RBC 4.60, Hgb 14.2, Hct 43.9, MCV 95.4 H, MCH 30.9, MCHC 32.4, RDW 15.4, Plt Count 247, MPV 9.7, Neut % (Auto) 57.4, Lymph % (Auto) 30.6, [place] % (Auto) 8.9, Eos % (Auto) 2.5, Baso % (Auto) 0.7, Neut # (Auto) 4.1, Lymph # (Auto) 2.2, [place] # (Auto) 0.6, Eos # (Auto) 0.2, Baso # (Auto) 0.1 09/09/20 06:43: Sodium 137, Potassium 4.1, Chloride 100, Carbon Dioxide 31 H, Anion Gap 10.1, BUN 27 H, Creatinine 1.20, Estimated Creat Clear 59, Estimated GFR 63, Est GFR ( Amer) 76, Glucose 217 H, Calcium 9.5 I & O for Last 24 hours: Intake & Output 09/06/20 09/07/20 09/08/20 09/09/20 11:59 11:59 11:59 11:59 Intake Total 370 / 370 1440 / 1440 1440 / 1440 490 / 490 Output Total 2525 / 2525 3250 / 3250 3400 / 3400 4200 / 4200 Balance -2155 / -2155 -1810 / -1810 -1960 / -1960 -3710 / -3710 Weight 260 lb 14.4 oz 252 lb 8 oz 256 lb 6 oz 242 lb Microbiology Reports for the Last 24 Hours: Microbiology 09/06/20 03:30 Blood Blood Culture - Preliminary NO GROWTH AFTER 48 HOURS 09/06/20 03:30 Blood Blood Culture - Preliminary NO GROWTH AFTER 48 HOURS - Constitutional no acute distress - *Routine HEENT Exam Head: Present: normocephalic Eye: Present: EOMI, PERRL ENT: Present: mucous membranes moist - *Routine Neck Exam Present: supple. Absent: lymphadenopathy - *Routine Respiratory Exam Present: CTA bilaterally - *Routine Cardiovascular Exam Present: RRR - *Routine Abdominal Exam Present: soft, normoactive bowel sounds. Absent: tenderness - *Routine Extremities Exam Present: edema. Absent: cyanosis, clubbing - *Routine Skin Exam Present: warm. Absent: rash - *Routine Neurological Exam Present: alert, oriented X3 Progress Note: A&P (1) CHF exacerbation Status: Acute (2) Tachypnea on examination Status: Acute (3) ASCVD (arteriosclerotic cardiovascular disease) Status: Chronic (4) Abnormal EKG Status: Acute (5) Abnormal ankle brachial index (JOSELYN) Status: Chronic (6) Biventricular congestive heart failure Status: Chronic (7) Congestive heart failure Status: Chronic (8) Heart failure, chronic, with acute decompensation Status: Acute (9) Ischemic cardiomyopathy Status: Chronic (10) Obesity (BMI 30-39.9) Status: Chronic (11) CAD (coronary artery disease) Status: Chronic (12) Cardiomyopathy Status: Chronic (13) Diabetes Status: Chronic (14) HLD (hyperlipidemia) Status: Chronic (15) HTN (hypertension) Status: Chronic (16) PAD (peripheral artery disease) Status: Chronic (17) Tobacco abuse Status: Chronic (18) Diverticulosis Status: Chronic (19) Abdominal pain Status: Acute Assessment and Plan for All Diagnoses:: 1. Acute on chronic systolic biventricular heart failure, improved with IV diuretic therapy and roughly 20 pound weight loss. 2. Ischemic cardiomyopathy by cardiac cath 01/2019, medical therapy recommended. Consideration for AICD recommended the patient has declined in the past. 3. Diabetes mellitus with hemoglobin A1c of 9.9 this admission 3. Hypertension, controlled 4. Hyperlipidemia, on statin therapy 5. Obesity 6. Moderate to severe amy
[2020-09-09 08:00] VITALS: BP 126/78; PULSE 63; RESP 18; TEMP 37; O2SAT 95
--- NOTE | 2020-09-09 08:41 | HMH.DCSUM ---
General - General Admission date:: 09/06/20 Discharge date: 09/09/20 HPI HPI: 55-year-old male presents the emergency department with acute shortness of breath. Patient states that he began having some shortness of breath about 3 days ago and progressively got worse and so he presented here to the emergency department. Patient denies any chest pain. Patient does state that he has a mild cough that is nonproductive. Patient denies any recent fever shakes or chills. Patient also denies any sore throat or headache. Patient also denies any body aches. Patient states that he has not had any sick contacts. Patient denies getting flu vaccinated. Patient does have a history of CHF. Patient also has a history of coronary artery disease. Patient also has a history of diabetes, hypertension, and hyperlipidemia. Patient received Solu-Medrol and also IV Lasix. Patient states he feels much better. Respiratory rate has decreased from 28 breaths/min down to 16 breaths/min. Patient also states he feels that he can breathe much better. comfortable this morning. Comorbid cad,pvd,dm,tobacco,htn,hld echo from april Conclusion 1. Moderately enlarged left atrium, normal left ventricular size, mild concentric left ventricular hypertrophy, visually estimated ejection fraction 40% with segmental wall motion abnormality described above, repeat study with Definity contrast is recommended. Diastolic parameters are inconclusive. 2. Mitral regurgitation likely in moderate range. 3. No significant pericardial effusion noted. Hospital Course Hospital Course: 55-year-old male presents the emergency department with acute shortness of breath. Patient states that he began having some shortness of breath about 3 days ago and progressively got worse and so he presented here to the emergency department. Patient denies any chest pain. Patient does state that he has a mild cough that is nonproductive. Patient denies any recent fever shakes or chills. Patient also denies any sore throat or headache. Patient also denies any body aches. Patient states that he has not had any sick contacts. Patient denies getting flu vaccinated. Patient does have a history of CHF. Patient also has a history of coronary artery disease. Patient also has a history of diabetes, hypertension, and hyperlipidemia. Patient received Solu-Medrol and also IV Lasix. Patient states he feels much better. Respiratory rate has decreased from 28 breaths/min down to 16 breaths/min. Patient also states he feels that he can breathe much better. comfortable this morning. Comorbid cad,pvd,dm,tobacco,htn,hld echo from april Conclusion 1. Moderately enlarged left atrium, normal left ventricular size, mild concentric left ventricular hypertrophy, visually estimated ejection fraction 40% with segmental wall motion abnormality described above, repeat study with Definity contrast is recommended. Diastolic parameters are inconclusive. 2. Mitral regurgitation likely in moderate range. 3. No significant pericardial effusion noted. 09/07/20 Abd/Pelvis CT: ABDOMEN & PELVIS: Stomach bowel: There is mild dilatation of the duodenal sweep but fairly similar to the previous study. This may reflect mild ileus versus duodenitis. And small bowel appear normal. There is mild scattered stool and gas seen throughout the colon mixed with oral contrast. Peritoneum: No abnormal fluid collections. There has been interval resolution of the ascitic fluid along the right gutter seen on the previous exam. No obvious inflammatory changes. No free air. Lymph nodes: Again noted is the soft tissue density projecting just to the right of the abdominal aorta and just inferior to the inferior vena cava measuring 1.7 by 2.6 by 2.9 cm. This likely is a slightly enlarged node in this is stable and unchanged in size from the previous exam. Vasculature: No evidence of abdominal aortic aneurys
[2020-09-09 09:09] LABS: POC Glucose,Bedside 239 (70-110)
--- NOTE | 2020-09-09 09:21 | PC.NURSE ---
ra SAT 88
--- NOTE | 2020-09-09 11:26 | SW/DCPLANNER ---
SET UP HOME HEALTH WITH [facility] THAT HAS A CHF PROGRAM AND HOME 02 WITH JANNET TO BE DELIVERED TO THE HOME... HIS BROTHER WAS HERE TO PICK HIM UP AND WOULD NOT WAIT UNTIL HIS PORTABLE WAS BROUGHT UP TO THE HOSPITAL SO I HAVE ASKED FOR IT TO BE DELIVERED WITH THE CONCENTRATOR.. PATIENT HAS LEFT THE PREMISES...
== END 2020-09-09 10:30 | disposition home or self-care (01) ==
LOC: ER 05:06 → 2ND 06:17
PROVIDERS: Family Medicine; Nurse Practitioner Family; Admitting Provider Internal Medicine Adolescent Medicine; Emergency Provider Family Medicine; PCP Emergency Medicine; Visit Provider Emergency Medicine
DX: I50.43 Acute on chronic combined systolic (congestive) and diastolic (congestive) heart failure (principal); I11.0 Hypertensive heart disease with heart failure; Z95.5 Presence of coronary angioplasty implant and graft; I25.2 Old myocardial infarction; Z79.4 Long term (current) use of insulin; Z79.01 Long term (current) use of anticoagulants; I25.10 Atherosclerotic heart disease of native coronary artery without angina pectoris; Z72.0 Tobacco use; I25.5 Ischemic cardiomyopathy; Z79.899 Other long term (current) drug therapy
CPT/HCPCS: 36415; 71046; 71270; 74177; 80048; 80053; 82803; 82962; 83036; 83605; 83880; 84484; 85025; 86328; 87040; 93005; 93306; 96374; 96375; 99284; G0378; J2405; Q9957; Q9967

== ENCOUNTER → 2020-09-15 17:26 | Outpatient (CLI) | payer MEDICARE, MEDICAID, SELFPAY ==
[2020-09-15 18:02] LABS: Anion Gap 16.8 mEq/L (5-15); Blood Urea Nitrogen 36 mg/dl (9-20); Calcium 10.9 mg/dl (8.4-10.2); Carbon Dioxide 28 mmol/L (22.0-30.0); Chloride 98 mmol/L (98-107); Estimated Glomerular Filt Rate 58 ml/min (>60); GFR (African American) 70 ML/MIN (>60); Glucose 378 mg/dl (74-100); Magnesium 1.9 mg/dl (1.6-2.3); Potassium 5.8 mmoL/L (3.5-5.1); Sodium 137 mmol/L (136-145)
[2020-09-15 18:11] LABS: NT Pro Brain Natriuretic Pep. 650 pg/mL (0-125)
[2020-09-15 19:02] LABS: Basophils # 0.1 K/mm3 (0-0.2); Basophils % 0.9 % (0.1-2.0); Eosinophils # 0.2 K/mm3 (0.0-0.4); Eosinophils % 1.9 % (0.1-12.0); Hematocrit 50.3 % (42.0-52.0); Hemoglobin 15.2 g/dL (14.1-18.0); Lymphocytes # 2.6 K/mm3 (0.7-4.5); Lymphocytes % 32.4 % (10-50); Mean Corpuscular HGB Conc 30.2 g/dL (31.8-35.4); Mean Corpuscular Hemoglobin 30.1 pg (27.0-31.2); Mean Corpuscular Volume 99.7 fl (80-94); Mean Platelet Volume 9.6 fl (7.4-10.4); Monocytes # 0.5 K/mm3 (0.1-1.0); Monocytes % 6.3 % (1.7-9.3); Neutrophils # 4.6 K/mm3 (1.8-7.8); Neutrophils % 58.5 % (37.0-80.0); Platelet Count 354 K/mm3 (142-424); Red Blood Count 5.04 M/mm3 (4.60-6.20); Red Cell Distribution Width 14.4 % (11.5-17.5); White Blood Count 7.9 K/mm3 (4.8-10.8)
== END ==
PROVIDERS: Visit Provider Emergency Medicine
DX: R53.83 Other fatigue (principal); M25.561 Pain in right knee; I50.9 Heart failure, unspecified
CPT/HCPCS: 80048; 83735; 83880; 85025

== ENCOUNTER → 2020-09-23 15:01 | Outpatient (CLI) | payer MEDICARE, MEDICAID, SELFPAY ==
[2020-09-23 15:10] LABS: Chloride 100 mmol/L (98-107); Potassium 4.9 mmoL/L (3.5-5.1); Sodium 137 mmol/L (136-145)
[2020-09-23 15:13] LABS: Anion Gap 11.9 mEq/L (5-15); Blood Urea Nitrogen 41 mg/dl (9-20); Calcium 10.1 mg/dl (8.4-10.2); Carbon Dioxide 30 mmol/L (22.0-30.0); Estimated Glomerular Filt Rate 53 ml/min (>60); GFR (African American) 64 ML/MIN (>60); Glucose 354 mg/dl (74-100); Magnesium 1.6 mg/dl (1.6-2.3)
[2020-09-23 15:22] LABS: NT Pro Brain Natriuretic Pep. 674 pg/mL (0-125)
== END ==
PROVIDERS: Visit Provider Physician Assistant
DX: E11.9 Type 2 diabetes mellitus without complications (principal); E66.9 Obesity, unspecified; E78.5 Hyperlipidemia, unspecified; I25.10 Atherosclerotic heart disease of native coronary artery without angina pectoris; I34.0 Nonrheumatic mitral (valve) insufficiency; I42.9 Cardiomyopathy, unspecified; I50.9 Heart failure, unspecified; I73.9 Peripheral vascular disease, unspecified; N18.9 Chronic kidney disease, unspecified; R06.02 Shortness of breath; Z72.0 Tobacco use; R00.1 Bradycardia, unspecified; I11.0 Hypertensive heart disease with heart failure; Z79.4 Long term (current) use of insulin
CPT/HCPCS: 36415; 80048; 83735; 83880

== ENCOUNTER 2020-09-26 08:50 | Day surgery (SDC) | payer MEDICARE, MEDICAID, SELFPAY ==
--- NOTE | 2020-09-26 | IR_ITS ---
APPROVED REPORT Patient Location: Outpatient Diamond Setter Apprentice: JULIETA Chow RT (R) PROCEDURES 1. Pocket formation for AICD. 2. Placement of atrial sensing and pacing coil into the right atrial appendage. 3. Placement of a ventricular sensing, pacing and shocking coil in the right ventricular apex. 4. Permanent AICD placement. INDICATION Systolic Congestive Heart Failure, ejection < 35%, [place] Heart Assoication Class 3 Congestive Heart Failure Informed consent was obtained prior to the procedure. COMPLICATIONS NONE Estimated Blood Loss: LESS THAN 10 ML TECHNIQUE 1% Lidocaine with epinephrine used to anesthetized the left anterior aspect of the chest. Scalpel was used to make the initial cutaneous incision while electrocautery was used to dissect down tinto the fascia. The fascia was lifted off the pectoralis muscle and digitally manipulated creating a pocket for the defibrillator. The patient was then placed in Trendelenburg position and the subclavian vein was accessed 3 times via the Selinger technique. A 8 [place] sheath was placed under fluoroscopic guidance into the subclavian vein. The dilator was removed from the sheath. Using fluoroscopic guidance, the ventricular lead was placed into the right ventricular apex, screwed and secured into place. Electronic interrogation proved acceptable thresholds and voltage within the lead. Using 3-0 silk, the ventricular lead was then secured into place and sheath peeled away. Following this, a 9.5 [place] sheath and dilator was then placed over one of the wires while keeping the other wire in place within the subclavian vein. The dilator was removed from the sheath. Using fluoroscopic guidance, contrast was used to visualize the coronary sinus, the left ventricular lead was placed into the coronary sinus. Electronic interrogation proved acceptable thresholds and voltage within the lead. Using 3-0 silk, the left ventricular lead was then secured into place and sheath peeled away.An additional 6 [place] fresh sheath and dilator was placed over the existing wire. Using fluoroscopic guidance, the atrial lead was then placed into the right atrial appendage and screwed and secured in place. Electrical interrogation demonstrated acceptable thresholds and voltage number. The atrial lead was then secured into place using 3-0 silk and sheath peeled away. 1 gram of Ancef was used to flush the pocket. All 3 leads were connected to generator and tested via computer. The defibrillator then secured to the fascia. Monocryl was used to close the subcutaneous layers while ria were used to close the cutaneous layer. A pressure dressing was placed and the patient was transferred to the postop holding area in stable condition for postoperative care. INTERROGATION Generator Model number: [place] GOLDSMITH DF-4-DR D233 Generator Serial number: [id number] Atrial lead model number: Ingevity +IS-1 Bi Positive Fix RA/RV 52cm 7841 Atrial lead serial number: [id number] P-wave: 4.0 mV Impedence: 577 Ohms Threshold: 8.0V@0.4ms Right Ventricular lead model number: [place] 4-Front Active Fix Dual Coil 59cm 0675 Right Ventricular lead serial number: [id number] R-wave: 12.0 mV Impedence: 559 Ohms Threshold: 0.6V@0.4ms Shock Impedence: 48 Ohms Pacing Parameters: Mode: DDD Base/Max Track: 60bpm/130bpm ICD Rate Cutoffs: VT-1: 180bpm 10.0 sec. VT-2: 150bpm 10.0 sec. VF: 220bpm 5.0 sec. Quick Convert: 41JX8 ATP, 41JX6 No diaphragmatic stimulation at 10 volts. IMPRESSION 1. Successful pocket formation for AICD. 2. Successful placement of atrial sensing and pacing coil into the right atrial appendage. 3. Successful
[2020-09-26 08:56] VITALS: BMI 40.6
--- NOTE | 2020-09-26 09:02 | ECG_ITS ---
APPROVED REPORT Exam: Resting ECG HR:72 bpm ECG Measurements Heart Rate 72 AXES TN 132 P 72 QRSd 100 QRS 37 QT 408 T 90 QTc 446 Conclusion Sinus rhythm with frequent premature ventricular complexes in a pattern of bigeminy Nonspecific T wave abnormality Abnormal ECG Electronically signed by : Epi Sparks, 09/28/2020 20:00:37
[2020-09-26 09:11] VITALS: BP 170/85; PULSE 62; PULSE 67; RESP 18; TEMP 37.2; O2SAT 97
[2020-09-26 09:28] LABS: Basophils # 0.1 K/mm3 (0-0.2); Eosinophils # 0.2 K/mm3 (0.0-0.4); Eosinophils % 3.3 % (0.1-12.0); Hematocrit 46.9 % (42.0-52.0); Lymphocytes # 2.1 K/mm3 (0.7-4.5); Mean Corpuscular HGB Conc 31.9 g/dL (31.8-35.4); Mean Corpuscular Hemoglobin 30.6 pg (27.0-31.2); Mean Platelet Volume 10.4 fl (7.4-10.4); Monocytes # 0.5 K/mm3 (0.1-1.0); Monocytes % 7.5 % (1.7-9.3); Neutrophils # 3.3 K/mm3 (1.8-7.8); Neutrophils % 53.3 % (37.0-80.0); Platelet Count 285 K/mm3 (142-424); Red Blood Count 4.89 M/mm3 (4.60-6.20); Red Cell Distribution Width 14.9 % (11.5-17.5); White Blood Count 6.1 K/mm3 (4.8-10.8)
[2020-09-26 09:29] LABS: Chloride 106 mmol/L (98-107); Potassium 4.6 mmoL/L (3.5-5.1); Sodium 139 mmol/L (136-145)
[2020-09-26 09:32] LABS: Anion Gap 11.6 mEq/L (5-15); Blood Urea Nitrogen 33 mg/dl (9-20); Calcium 9.4 mg/dl (8.4-10.2); Carbon Dioxide 26 mmol/L (22.0-30.0); Creatinine Clearance Estimated 120 mL/min (50-200); Estimated Glomerular Filt Rate 70 ml/min (>60); GFR (African American) 84 ML/MIN (>60); Glucose 234 mg/dl (74-100)
[2020-09-26 09:51] LABS: Coronavirus 19 IgG Antibody Negative (Negative); Coronavirus 19 IgM Antibody Negative (Negative)
--- NOTE | 2020-09-26 10:54 | XR_ITS ---
PROCEDURE: XR CHEST PORTABLE CLINICAL HISTORY: Confirm pacemaker/AID placement COMPARISON: CR XR CHEST 2V from 02/25/2020 CR XR CHEST PORTABLE from 05/02/[address] CHEST WO/W CON from 09/06/2020 CR XR CHEST 2V from 09/07/2020 FINDINGS: Bipolar pacemaker is present from left subclavian approach. The leads appear to be in good position on the AP view. No evidence of pneumothorax. There is increased density in the left upper lobe. This may be due to under penetration. Cannot exclude faint pneumonia in this area. IMPRESSION: Status post pacemaker placement with good position and no evidence of pneumothorax. Nonspecific increased density in the left upper lobe. Cannot exclude underlying pneumonia Dictated by: Damián Li MD 09/26/2020 12:44 Damián Li MD in [place] 09/26/2020 12:44
--- NOTE | 2020-09-26 11:09 | HMH.ANESCL ---
[facility] Anesthesia Checklist - Patient Identification Patient Identification: Arm Band, Verbal (Name & ) - Structural Data Admitted From: Home Planned Operative Procedure/s: AICD placement Consent for Planned Operative Procedure(s) Verified: Yes Verified Documents: Surgical Consent, History and Physical - NPO Status Verified Time NPO: 00:00 - Chart Verification Results Verified: CBC, BMP - Additional verifications Anesthesia Reactions: No - Airway Assessment C-Spine Mobility Assessed: Yes TMJ Mobility Assessed: Yes Dentition: Edentulous - Neurological Assessment Level of Consciousness: Awake, Alert, Appropriate, Follows Commands Hx Seizures: No Numbness or tingling in extremities: Yes - Anesthesia Plan Anesthesia Risk discussed: Yes Anesthesia Plan: Verified ASA Class: III Anesthesia Type: MAC [facility] History I have reviewed the patient's past medical history: Yes Medical History: Reports:: Asthma, Cardiomyopathy, Congestive Heart Failure, Chronic Obstructive Pulmonary Disease (COPD), Coronary Artery Disease, Cerebrovascular Accident, Diabetes Mellitus Type 2, Gastroesophageal Reflux Disease(GERD), Hyperlipidemia, Hypertension, Lung Disease, Myocardial Infarction, Peripheral Artery Disease Denies:: Cancer, Diabetes Mellitus Type 1, Home Oxygen, Internal Pacemaker, MRSA, Seizures *Have you ever received a pneumonia vaccine?: No *Have you received a flu vaccine this season?: No Other Medical History: Reports: Arthritis, Cataracts Comment:: morbid obesity, chronic pain, neuropathy, YEE Anesthesia experience/problems:: None Laterality Cases: Left: Other Other Surgeries: Yes: Angiogram, Angioplasty, Appendectomy, Cardiac Catheterization, Cardiac Surgery, Cholecystectomy, Colonoscopy, Coronary Stent, Other. No: Pacemaker Amputation: No Fractures: No - *Social History Last grade of school completed: High school graduate Smoking Status: Current every day smoker Tobacco Type: cigarettes # Packs/Day (cigarettes): 1 #Yrs smoked (if former smoker): 1 Alcohol Intake: current Alcohol Intake Frequency:: other Substance Use Type: marijuana Last Used Substance: unknown *Occupational Status:: unemployed Housing: apartment Household Members: none *Travel in the last 8 weeks: None Family Hx:: Cancer, Coronary Artery Disease, Diabetes, Heart Attack, Hyperlipidemia, Hypertension, Stroke, Substance abuse, Alcoholism
[2020-09-26 11:12] VITALS: BP 121/72; PULSE 82; RESP 20; O2SAT 98
[2020-09-26 11:15] VITALS: BP 122/77; PULSE 79; RESP 20; O2SAT 97
[2020-09-26 11:30] VITALS: BP 182/89; PULSE 77; RESP 20; O2SAT 98
[2020-09-26 11:45] VITALS: BP 177/98; PULSE 77; RESP 20; O2SAT 98
[2020-09-26 12:15] VITALS: BP 157/81; PULSE 82; RESP 20; O2SAT 99
== END 2020-09-26 12:50 | disposition home or self-care (01) ==
LOC: CATHLAB 08:50
PROVIDERS: PCP Emergency Medicine; Visit Provider Internal Medicine
DX: I11.0 Hypertensive heart disease with heart failure (principal); I50.22 Chronic systolic (congestive) heart failure; E11.9 Type 2 diabetes mellitus without complications; I34.0 Nonrheumatic mitral (valve) insufficiency; I50.82 Biventricular heart failure; I42.9 Cardiomyopathy, unspecified; I25.10 Atherosclerotic heart disease of native coronary artery without angina pectoris; E78.2 Mixed hyperlipidemia; Z79.4 Long term (current) use of insulin; Z79.01 Long term (current) use of anticoagulants; Z79.82 Long term (current) use of aspirin
CPT/HCPCS: 33249; 71045; 80048; 85025; 86328; 93005; C1721; C1895; C1898

== ENCOUNTER → 2020-11-14 17:36 | Outpatient (CLI) | payer MEDICARE, MEDICAID, SELFPAY ==
[2020-11-14 18:06] LABS: Amphetamine/Metha Screen,Urine Negative ng/ml (<1000)
[2020-11-14 18:07] LABS: Barbiturates Screen,Urine Negative ng/ml (<200); Benzodiazepines Screen,Urine Negative ng/ml (<200)
[2020-11-14 18:08] LABS: Cannabinoid Screen,Urine Positive ng/ml (<50); Cocaine Screen,Urine Negative ng/ml (<300)
[2020-11-14 18:09] LABS: Methadone Screen,Urine Negative ng/ml (<300)
[2020-11-14 18:10] LABS: Opiate Screen,Urine Negative ng/ml (<300); Phencyclidine Screen,Urine Negative ng/ml (<25)
== END ==
PROVIDERS: Visit Provider Emergency Medicine
DX: M47.27 Other spondylosis with radiculopathy, lumbosacral region (principal); Z79.899 Other long term (current) drug therapy
CPT/HCPCS: 80305

== ENCOUNTER → 2021-01-09 16:43 | Outpatient (CLI) | payer MEDICARE, MEDICAID, SELFPAY ==
[2021-01-09 19:01] LABS: Amphetamine/Metha Screen,Urine Negative ng/ml (<1000)
[2021-01-09 19:04] LABS: Barbiturates Screen,Urine Negative ng/ml (<200)
[2021-01-09 19:05] LABS: Benzodiazepines Screen,Urine Negative ng/ml (<200); Cannabinoid Screen,Urine Positive ng/ml (<50)
[2021-01-09 19:06] LABS: Cocaine Screen,Urine Negative ng/ml (<300); Methadone Screen,Urine Negative ng/ml (<300)
[2021-01-09 19:07] LABS: Opiate Screen,Urine Negative ng/ml (<300)
[2021-01-09 19:08] LABS: Phencyclidine Screen,Urine Negative ng/ml (<25)
[2021-01-09 19:39] LABS: Creatinine,Urine Random 55 mg/dL (Not Estab.)
[2021-01-09 20:28] LABS: Microalbumin/Creatinine Ratio 1588.5
== END ==
PROVIDERS: Visit Provider Emergency Medicine
DX: M47.27 Other spondylosis with radiculopathy, lumbosacral region (principal); E11.9 Type 2 diabetes mellitus without complications; Z79.4 Long term (current) use of insulin
CPT/HCPCS: 80305; 82043; 82570

== ENCOUNTER → 2021-01-28 10:28 | Outpatient (CLI) | payer MEDICARE, MEDICAID, SELFPAY ==
--- NOTE | 2021-01-28 10:53 | XR_ITS ---
PROCEDURE: XR SHOULDER LT MIN 2V CLINICAL INDICATION: left arm pain COMPARISON: CR XR CHEST PORTABLE from 09/26/2020 FINDINGS: No fracture or dislocation. No lytic or blastic change. There is normal mineralization. Moderate to severe osteoarthritic changes are present involving the glenohumeral joint with mild osteoarthritis of the acromioclavicular joint. Other findings:Bipolar pacemaker is present from left subclavian approach. IMPRESSION: Moderate to severe osteoarthritis of the left glenohumeral joint Dictated by: Damián Li MD 01/28/2021 15:19 Damián Li MD in [place] 01/28/2021 15:19
--- NOTE | 2021-01-28 10:53 | XR_ITS ---
PROCEDURE: XR CHEST 2V CLINICAL HISTORY: left arm pain from AICD COMPARISON: CR XR CHEST PORTABLE from 05/02/[address] CHEST WO/W CON from 09/06/2020 CR XR CHEST 2V from 09/07/2020 CR XR CHEST PORTABLE from 09/26/2020 FINDINGS: Borderline cardiomegaly without failure. Bipolar pacemaker is present from left subclavian approach. There is mild prominence of the interstitium. Patchy density is present in the right lower lobe medially and may be due to an area of atelectasis or infiltrate within the right middle lobe. Degenerative changes thoracic spine IMPRESSION: Cardiomegaly with mild prominence of the interstitium. Possible right middle lobe infiltrate. Dictated by: Damián Li MD 01/28/2021 15:21 Damián Li MD in [place] 01/28/2021 15:21
[2021-01-28 10:59] LABS: Basophils # 0.1 K/mm3 (0-0.2); Basophils % 1.3 % (0.1-2.0); Eosinophils # 0.3 K/mm3 (0.0-0.4); Eosinophils % 5.2 % (0.1-12.0); Hemoglobin 13.4 g/dL (14.1-18.0); Lymphocytes # 2.2 K/mm3 (0.7-4.5); Lymphocytes % 36.4 % (10-50); Mean Corpuscular HGB Conc 32.7 g/dL (31.8-35.4); Mean Corpuscular Hemoglobin 30.9 pg (27.0-31.2); Mean Corpuscular Volume 94.6 fl (80-94); Mean Platelet Volume 9.4 fl (7.4-10.4); Monocytes # 0.4 K/mm3 (0.1-1.0); Monocytes % 6.1 % (1.7-9.3); Neutrophils % 51.1 % (37.0-80.0); Platelet Count 270 K/mm3 (142-424); Red Blood Count 4.33 M/mm3 (4.60-6.20); Red Cell Distribution Width 14.4 % (11.5-17.5); White Blood Count 5.9 K/mm3 (4.8-10.8)
[2021-01-28 11:23] LABS: Alanine Aminotransferase 13 U/L (12-78); Albumin Level 3.9 g/dl (3.5-5.0); Albumin/Globulin Ratio 1.3 (1.1-1.8); Alkaline Phosphatase 63 U/L (38-126); Anion Gap 11.9 mEq/L (5-15); Aspartate Amino Transferase 21 U/L (17-59); Bilirubin,Total 0.4 mg/dl (0.2-1.3); Blood Urea Nitrogen 32 mg/dl (9-20); Calcium 9.8 mg/dl (8.4-10.2); Carbon Dioxide 25 mmol/L (22.0-30.0); Chloride 109 mmol/L (98-107); Chol/HDL Ratio 5.2 (1-3.5); Cholesterol 202 mg/dl (140-200); Estimated Glomerular Filt Rate 58 ml/min (>60); GFR (African American) 70 ML/MIN (>60); Globulin 2.9 g/dL (1.3-3.2); Glucose 146 mg/dl (74-100); HDL Cholesterol 39 mg/dl (40-60); Potassium 3.9 mmoL/L (3.5-5.1); Sodium 142 mmol/L (136-145); Total Protein,Serum 6.8 g/dl (6.3-8.2); Triglycerides 125 mg/dl (30-150); VLDL Cholesterol 25 mg/dL (0-40)
[2021-01-28 11:34] LABS: Direct LDL Cholesterol 123.09 mg/dL (100-129)
[2021-01-28 11:42] LABS: Free T4 (Free Thyroxine) 1.42 ng/dl (0.78-2.19)
[2021-01-28 11:57] LABS: Prostate Specific Ag Screen 0.5 ng/ml (0.0-4.0); Thyroid Stimulating Hormone 1.19 uIU/mL (0.465-4.68)
[2021-01-28 12:03] LABS: Hemoglobin A1C 9.4 % (4.0-6.0)
== END ==
PROVIDERS: Visit Provider Emergency Medicine
DX: E11.9 Type 2 diabetes mellitus without complications (principal); Z12.5 Encounter for screening for malignant neoplasm of prostate; G47.33 Obstructive sleep apnea (adult) (pediatric); I50.20 Unspecified systolic (congestive) heart failure; M79.602 Pain in left arm; Z95.810 Presence of automatic (implantable) cardiac defibrillator; Z79.4 Long term (current) use of insulin
CPT/HCPCS: 36415; 71046; 73030; 80053; 80061; 83036; 84439; 84443; 85025; G0103

== ENCOUNTER → 2021-02-02 13:49 | Outpatient (POV) | payer MEDICARE, MEDICAID, SELFPAY | PROVIDERS: Visit Provider Internal Medicine Nephrology | DX: Z00.00 Encounter for general adult medical examination without abnormal findings (principal) ==

== ENCOUNTER 2021-03-06 10:26 | Emergency (ER) | payer MEDICARE, MEDICAID, SELFPAY ==
[2021-03-06 10:27] VITALS: BP 109/61; PULSE 108; RESP 20; TEMP 36.8; O2SAT 100; BMI 41.5
--- NOTE | 2021-03-06 10:51 | HMH.EDGENADL ---
ED Disposition Clinical Impression: External hemorrhoids without complication Disposition: Home, Self-Care Condition on Discharge: Good Instructions: DI for Hemorrhoids Prescriptions: Hydrocortisone [Anusol-Hc] 1 applicatio TP BID #1 cream..g. Transmission Status: Pending to [facility] Referrals: Morro Fortune MD [Primary Care Provider] - Antony Lan MD [Staff Physician] - - Critical Care Critical Care Time: No Attestation: On 03/06/21, the high probability of a clinically significant, sudden or life threatening deterioration of the following system(s) required my full and direct attention, intervention and personal management. The time I documented below is in addition to time spent performing reported procedures but includes the following listed in this critical care notation. Medical Decision Making - Medical Records Medical records reviewed: Yes: I reviewed the patient's medical records. - Ayad Inquiry Pt receiving controlled substance: Yes Ayad was queried for this patient: Yes Reference #:: [id number] Risks and benefits of using a controlled substance: were discussed with pt by me Vital Signs: 03/06/21 10:27 Temperature 98.2 F Temperature Source Oral Pulse Rate [Right Radial] 108 H Respiratory Rate 20 Blood Pressure [Right Arm] 109/61 L Blood Pressure Mean [Right Arm] 77 02 Sat by Pulse Oximetry 100 Oxygen Delivery Method Room Air Orders (Tests/Meds): ED MEDICATIONS Discontinued Medications Generic Name Dose Route Start Last Admin Trade Name Freq PRN Reason Stop Dose Admin Morphine Sulfate 4 mg 03/06/21 10:46 03/06/21 10:52 Morphine 2mg/Ml Syringe IM 03/06/21 10:47 4 mg ONCE ONE Administration - Reevaluation(s) Time: 11:10 Reevaluation #1: On reevaluation, the patient is feeling better. Pain improved. Patient will be given short course of prescriptions to help with hemorrhoids. Needs a follow-up with general surgery. Given strict return precautions. Verbalized understanding. Medical Decision Narrative: 55-year-old male presented to the emergency department with some rectal pain. Patient does have findings consistent with external hemorrhoids. There is no evidence of thrombosis or active bleeding. I did review the patient's AYAD. Patient was recently supplied a 30-day history of narcotic medication. Patient be treated symptomatically. General Adult HPI - General Chief complaint: PAIN Stated complaint: possible hemorroids Time Seen by Provider: 03/06/21 10:30 Mode of Arrival: Ambulatory Limitations: No Limitations Description of Symptoms (Recalled from ER Triage Doc. by RN): Pt states he has hemorrhoids, rates his pain 10/10, denies any bleeding. Pt states this started 3 days ago. - History of Present Illness HPI narrative: This is a 55-year-old male presented to the emergency department with some rectal pain. Patient states that he has had this for the last 3 days. Does have a history of hemorrhoids. States that he has been a little constipated, however has been having bowel movements without any difficulties. Patient denies any bleeding. He states that the pain is severe in nature. Nonradiating. Patient has been taking his normal prescribed analgesics without any relief. Denies any abdominal pain, vomiting or diarrhea. No chest pain or shortness of breath. Headache or change in vision. No fevers or chills. - Related Data Home Medications Medication Instructions Recorded Confirmed buspirone 10 mg tablet 10 mg PO DAILY tab 07/18/20 02/17/21 omeprazole 20 mg capsule,delayed 40 mg PO DAILY cap 09/23/20 02/17/21 release gabapentin 800 mg tablet 800 mg PO TID 01/29/21 02/17/21 oxycodone-acetaminophen 7.5 mg-325 1 tab PO TID PRN 01/29/21 02/17/21 mg tablet Previous Rx's Medication Instructions Recorded aspirin 81 mg tablet,delayed 81 mg PO DAILY #90 tab 05/29/20 release rotigotine 1 mg/24 ho
[2021-03-06 11:33] VITALS: BP 120/60; PULSE 50; RESP 16; TEMP 36.8; O2SAT 98
== END 2021-03-06 11:34 | disposition home or self-care (01) ==
PROVIDERS: Emergency Provider Emergency Medicine; PCP Emergency Medicine
DX: K64.4 Residual hemorrhoidal skin tags (principal); J44.9 Chronic obstructive pulmonary disease, unspecified; I25.10 Atherosclerotic heart disease of native coronary artery without angina pectoris; E11.9 Type 2 diabetes mellitus without complications; K21.9 Gastro-esophageal reflux disease without esophagitis; E78.5 Hyperlipidemia, unspecified; I10 Essential (primary) hypertension; I25.2 Old myocardial infarction; Z95.0 Presence of cardiac pacemaker; F17.210 Nicotine dependence, cigarettes, uncomplicated; Z79.899 Other long term (current) drug therapy
CPT/HCPCS: 96372; 99281

== ENCOUNTER → 2021-05-04 17:37 | Outpatient (CLI) | payer MEDICARE, MEDICAID, SELFPAY ==
[2021-05-04 18:54] LABS: Amphetamine/Metha Screen,Urine Negative ng/ml (<1000)
[2021-05-04 18:55] LABS: Barbiturates Screen,Urine Negative ng/ml (<200); Benzodiazepines Screen,Urine Negative ng/ml (<200)
[2021-05-04 18:56] LABS: Cannabinoid Screen,Urine Positive ng/ml (<50)
[2021-05-04 18:57] LABS: Cocaine Screen,Urine Negative ng/ml (<300); Methadone Screen,Urine Negative ng/ml (<300)
[2021-05-04 18:58] LABS: Opiate Screen,Urine Negative ng/ml (<300)
[2021-05-04 18:59] LABS: Phencyclidine Screen,Urine Negative ng/ml (<25)
== END ==
PROVIDERS: Visit Provider Emergency Medicine
DX: M47.27 Other spondylosis with radiculopathy, lumbosacral region (principal)
CPT/HCPCS: 80305

== ENCOUNTER → 2021-05-11 13:08 | Outpatient (CLI) | payer MEDICARE, MEDICAID, SELFPAY ==
--- NOTE | 2021-05-11 13:14 | CT_ITS ---
PROCEDURE: CT ANGIO ABDOMEN/FEMORAL CLINICAL INDICATION: claudication COMPARISON: CT CT ABDOMEN PELVIS W CON from 09/07/2020 TECHNIQUE: CT angiography of the abdomen and pelvis with multiplanar 3D MIP reformations. Dose modulation, automated exposure control, and/or iterative reconstruction were used for dose reduction. Contrast: 100 ML of Isovue 370 FINDINGS: VASCULAR: Aorta:The aorta is normal in caliber, without evidence of abdominal aortic aneurysm or dissection. Extensive atheromatous calcified and noncalcified plaques are noted in the visualized abdominal aorta. There is mild to moderate stenosis of the left common iliac artery and left proximal external iliac artery. Multifocal calcified plaques are noted in the left common femoral artery. Multifocal atheromatous calcified and noncalcified plaques noted with the narrowing of the distal left superficial femoral artery. The popliteal artery is unremarkable. The posterior tibial and peroneal arteries are patent and demonstrates flow up to the level of ankles. The anterior tibial artery is not visualized and did not without demonstrable flow. Extensive atherosclerotic vascular calcification of the popliteal distal popliteal artery is noted with the evidence of 2 vessel runoff to the ankle. There is atherosclerotic vascular calcification of the right common iliac artery. There is severe narrowing of the proximal right internal iliac artery. The right external iliac artery demonstrates multifocal atherosclerotic calcified and noncalcified plaques with mild to moderate stenosis. There is stent noted in the right common femoral artery. The right superficial femoral artery demonstrates multifocal atherosclerotic vascular calcification. Stent is noted in the distal superficial femoral artery. The popliteal artery is demonstrates atherosclerotic vascular calcification but appears patent. Two vessel runoff and to the ankle is noted. HEPATOBILIARY: Liver: No focal lesions are identified in the visualized liver within the limitations of arterial phase study. Gallbladder: The gallbladder is surgically absent. Biliary: No intrahepatic or extrahepatic ductal dilation. PANCREAS: No focal masses or ductal dilatation. SPLEEN:Spleen not visualized ADRENALS:Partially visualized adrenal glands demonstrate no focal abnormality. KIDNEYS/URETERS/BLADDER: No hydronephrosis, stones, or solid mass lesions are seen in the visualized portions of the kidneys. PERITONEUM / RETROPERITONEUM: No free air or fluid. Peritoneum LYMPH NODES: No free air or fluid. GI TRACT: Multiple uncomplicated colonic diverticula are present. No evidence of inflammation or bowel obstruction. Appendix the appendix is not visualized. No secondary signs of appendicitis noted. ABDOMINAL WALL: Intact SOFT TISSUES: Unremarkable. BONES: Multilevel minor degenerative changes of the visualized lumbar spine. No focal bony abnormality. IMPRESSION: Extensive atherosclerotic calcified and noncalcified plaques are noted in the visualized abdominal aorta and bilateral lower extremity arteries with mild to moderate stenosis. Two vessel runoff to the ankles bilaterally. Dictated by: Darleen Medina 05/11/2021 16:25 Darleen Meidna in OV 05/11/2021 16:25
[2021-05-11 14:09] LABS: Blood Urea Nitrogen 22 mg/dl (9-20); Estimated Glomerular Filt Rate 69 ml/min (>60); GFR (African American) 84 ML/MIN (>60)
== END ==
PROVIDERS: Physician Assistant; PCP Emergency Medicine; Visit Provider Urology
DX: E78.5 Hyperlipidemia, unspecified (principal); I25.10 Atherosclerotic heart disease of native coronary artery without angina pectoris; I25.5 Ischemic cardiomyopathy; I34.0 Nonrheumatic mitral (valve) insufficiency; I42.9 Cardiomyopathy, unspecified; I48.0 Paroxysmal atrial fibrillation; I50.20 Unspecified systolic (congestive) heart failure; I50.82 Biventricular heart failure; I73.9 Peripheral vascular disease, unspecified; I11.0 Hypertensive heart disease with heart failure
CPT/HCPCS: 36415; 75635; 82565; 84520; Q9967

== ENCOUNTER → 2021-05-19 11:58 | Outpatient (CLI) | payer MEDICARE, MEDICAID, SELFPAY ==
--- NOTE | 2021-05-19 | US_ITS ---
APPROVED REPORT Exam Type: Ankle to Brachial Index Manager Hardware: Mena Kimble CRT Indications Claudication: Bilaterally Current Smoker Risk Factors History of PAD: Hypertension Hyperlipidemia Obesity Diabetes Current Smoker Pressures/Indices Right Indices Left Indices Brachial 108.00 mmHg Brachial 110.00 mmHg Low Thigh 114.00 mmHg 1.04 Low Thigh Calf 84.00 mmHg 0.76 Calf 100.00 mmHg 0.91 Ankle(PT) 94.00 mmHg 0.85 Ankle(PT) 85.00 mmHg 0.77 Ankle(DP) 45.00 mmHg 0.41 Ankle(DP) 92.00 mmHg 0.84 Digit 72.00 mmHg 0.65 Digit Findings Diminished waveforms Diminished pulses. Left great toe, 2nd and 3rd toes amputated. Conclusion R JOSELYN 0.9 L JOSELYN 0..85 LTBI 0..84 Diminished waveforms Diminished pulses. Left great toe, 2nd and 3rd toes amputated. Some arterial disease Electronically signed by : Damián Li MD 05/19/2021 17:23:06
== END ==
PROVIDERS: PCP Emergency Medicine; Visit Provider Internal Medicine
DX: I70.213 Atherosclerosis of native arteries of extremities with intermittent claudication, bilateral legs (principal)
CPT/HCPCS: 93923

== ENCOUNTER → 2021-05-26 10:03 | Outpatient (CLI) | payer MEDICARE, MEDICAID, SELFPAY ==
[2021-05-26 10:34] LABS: Basophils # 0.1 K/mm3 (0-0.2); Basophils % 0.9 % (0.1-2.0); Eosinophils # 0.2 K/mm3 (0.0-0.4); Eosinophils % 3.5 % (0.1-12.0); Hematocrit 39.5 % (42.0-52.0); Hemoglobin 12.5 g/dL (14.1-18.0); Lymphocytes # 1.7 K/mm3 (0.7-4.5); Lymphocytes % 32.3 % (10-50); Mean Corpuscular HGB Conc 31.6 g/dL (31.8-35.4); Mean Corpuscular Hemoglobin 30.1 pg (27.0-31.2); Mean Corpuscular Volume 95.1 fl (80-94); Mean Platelet Volume 8.6 fl (7.4-10.4); Monocytes # 0.4 K/mm3 (0.1-1.0); Monocytes % 6.7 % (1.7-9.3); Neutrophils % 56.7 % (37.0-80.0); Platelet Count 226 K/mm3 (142-424); Red Blood Count 4.15 M/mm3 (4.60-6.20); Red Cell Distribution Width 15.9 % (11.5-17.5); White Blood Count 5.2 K/mm3 (4.8-10.8)
[2021-05-26 11:26] LABS: Anion Gap 8.9 mEq/L (5-15); Blood Urea Nitrogen 22 mg/dl (9-20); Calcium 8.9 mg/dl (8.4-10.2); Carbon Dioxide 32 mmol/L (22.0-30.0); Chloride 107 mmol/L (98-107); Estimated Glomerular Filt Rate 57 ml/min (>60); GFR (African American) 69 ML/MIN (>60); Glucose 131 mg/dl (74-100); Potassium 3.9 mmoL/L (3.5-5.1); Sodium 144 mmol/L (136-145)
== END ==
PROVIDERS: Visit Provider Internal Medicine
DX: I73.9 Peripheral vascular disease, unspecified (principal); K64.4 Residual hemorrhoidal skin tags; Z01.812 Encounter for preprocedural laboratory examination; Z11.52 Encounter for screening for COVID-19
CPT/HCPCS: 36415; 80048; 85025; U0003

== ENCOUNTER 2021-05-27 08:41 | Day surgery (SDC) | payer MEDICARE, MEDICAID, SELFPAY ==
[2021-05-27] VITALS (13 sets, daily range): BP systolic 117–160; BP diastolic 61–115; PULSE 109–127; RESP 18–20; O2SAT 92–95; BMI 43.9
--- NOTE | 2021-05-27 07:15 | IR_ITS ---
APPROVED REPORT Patient Location: Outpatient Supervisor [employer]: JULIETA Chow RT (R) PROCEDURES Right radial arterial access Catheter placement in the right common iliac artery Right common iliac artery antegrade angiogram with unilateral runoff to the right foot Catheter placement in the left common iliac artery Left common iliac artery antegrade angiogram with unilateral runoff to the left foot Angioplasty to the left popliteal artery and left superficial femoral artery within Jorgito's canal INDICATION Peripheral artery disease, Rachid claudication class III, Abnormal JOSELYN 0.8 on left side 0.9 on right, Left SFA/popliteal artery stenosis, Informed consent was obtained prior to the procedure. COMPLICATIONS None Estimated Blood Loss: Less than 10 mls TECHNIQUE 1% lidocaine used anesthetize anterior aspect of the right wrist. The right radial artery was accessed via the Salinger technique and a 6 Swazi hydrophilic sheath was placed in the right radial artery. An arterial cocktail using nitroglycerin verapamil and heparin was administered. A GRIMES catheter was then placed in the transverse aorta over a wire which then allowed the wire to be steered down the descending thoracic aorta. Following this a PV multi curve catheter was then placed under fluoroscopic guidance in the right common iliac artery and right common iliac artery antegrade angiography was performed with unilateral runoff to the right foot. This procedure was repeated in the left common iliac artery. Following this therapeutic heparin was administered giving a therapeutic ACT and the wire was exchanged for a 300 cm Josué wire. The sheath was removed and 119 cm Terumo hydrophilic sheath was then advanced in the right radial artery. A 5 mm x 80 mm Terumo balloon was then inflated in the popliteal artery and left superficial femoral artery at 10 yuri for 1 minute each. Repeat angiography demonstrated significant improvement with excellent inflow into the left popliteal artery. At the end of the procedure the apparatus was removed the sheath was removed and hemostasis was achieved and TR banding patient was transferred to the postop holding in stable condition ANGIOGRAPHIC RESULTS Right common iliac artery is widely patent and has inline flow into the right external iliac artery. The right internal iliac artery appears patent yet small. The right femoral artery is calcified with an eccentric 30% stenosis. The right profunda femoris artery is small patent in the proximal segment but also appears to have advanced proximal disease greater than 80%. The right superficial femoral artery is moderately atheromatous with multiple 40% stenoses. At Jorgito's canal a stent is patent which has eccentric calcified focal atheromatous plaque creating 40 and 50% stenoses. There is inline flow into the popliteal artery with severe disease at the PT trunk. All 3 distal runoffs are proximally subtotally occluded however reconstitute via collaterals and actually provide three-vessel runoff into the right foot Left common iliac artery is widely patent and gives rise to a patent left internal iliac artery and a patent tortuous left external iliac artery which has mild atheromatous plaque. The left common femoral artery is widely patent. The left profunda femoris artery is patent. The left superficial femoral artery has proximal 30% stenoses with a tight AT and long 90% stenosis at Jorgito's canal. Additional eccentric 50% stenosis. The PT trunk has 60 to 70% stenoses and then all 3 vessels are proximally occluded. Distally there is reconstitution via collaterals with three-vessel entrance into the left foot IMPRESSION Peripheral
[2021-05-27 13:41] LABS: CATHL Activated Clotting Time 226 SEC (74-125)
== END 2021-05-27 14:59 | disposition home or self-care (01) ==
LOC: CATHLAB 08:43
PROVIDERS: PCP Emergency Medicine; Visit Provider Internal Medicine
DX: I70.213 Atherosclerosis of native arteries of extremities with intermittent claudication, bilateral legs (principal); I77.1 Stricture of artery; E11.9 Type 2 diabetes mellitus without complications; Z79.4 Long term (current) use of insulin; I25.5 Ischemic cardiomyopathy; I50.22 Chronic systolic (congestive) heart failure; F17.210 Nicotine dependence, cigarettes, uncomplicated; E66.01 Morbid (severe) obesity due to excess calories; Z68.41 Body mass index [BMI] 40.0-44.9, adult; I11.0 Hypertensive heart disease with heart failure; Z95.810 Presence of automatic (implantable) cardiac defibrillator; Z79.899 Other long term (current) drug therapy
CPT/HCPCS: 36247; 37224; 75710; 85347; 99152; 99153; C1725; C1760; C1769; J1644; Q9966

== ENCOUNTER 2021-06-27 17:56 | Inpatient (IN) | payer MEDICARE, MEDICAID, SELFPAY ==
[2021-06-27 17:57] VITALS: BP 121/81; PULSE 119; RESP 28; TEMP 36.6; O2SAT 98; BMI 41.5
--- NOTE | 2021-06-27 18:20 | ECG_ITS ---
APPROVED REPORT Exam: Resting ECG HR:109 bpm ECG Measurements Heart Rate 109 AXES QRSd 106 QRS 53 QT 364 T 154 QTc 490 Conclusion Demand pacemaker, interpretation is based on intrinsic rhythm Atrial fibrillation with rapid ventricular response with premature ventricular or aberrantly conducted complexes Low voltage QRS Nonspecific T wave abnormality, probably digitalis effect Abnormal ECG Electronically signed by : Epi Sparks MD 06/29/2021 20:41:41
--- NOTE | 2021-06-27 18:21 | XR_ITS ---
PROCEDURE INFORMATION: Exam: XR Chest Exam date and time: 06/27/2021 6:21 PM Age: 56 years old Clinical indication: Shortness of breath; Additional info: SOB TECHNIQUE: Imaging protocol: XR of the chest. Views: 1 view. COMPARISON: CR XR CHEST 2V 01/28/2021 10:54 AM FINDINGS: Tubes, catheters and devices: Dual lead left-sided cardiac pacemaker. Lungs: Hazy interstitial opacities in both lungs could reflect interstitial edema versus interstitial pneumonia. Granulomatous change. Pleural spaces: Mild bilateral pleural effusion. No pneumothorax. Heart/Mediastinum: Cardiomegaly. Bones/joints: Unremarkable. IMPRESSION: Interstitial opacities bilaterally could reflect edema versus pneumonia. Correlate clinically.
--- NOTE | 2021-06-27 18:24 | HMH.EDGENADL ---
ED Disposition Clinical Impression: Congestive heart failure Qualifiers: Heart failure type: unspecified Heart failure chronicity: acute on chronic Qualified Code(s): I50.9 - Heart failure, unspecified Disposition: Admitted as Observation Condition on Discharge: Serious - Critical Care Critical Care Time: No Attestation: On 06/27/21, the high probability of a clinically significant, sudden or life threatening deterioration of the following system(s) required my full and direct attention, intervention and personal management. The time I documented below is in addition to time spent performing reported procedures but includes the following listed in this critical care notation. Medical Decision Making - Marcial Inquiry Pt receiving controlled substance: No Vital Signs: 06/27/21 17:57 Temperature 97.8 F Temperature Source Oral Pulse Rate [Radial] 119 H Respiratory Rate 28 H Blood Pressure [Right Arm] 121/81 Blood Pressure Mean [Right Arm] 94 Blood Pressure Position [Right Arm] Sitting 02 Sat by Pulse Oximetry 98 Oxygen Delivery Method Room Air - Lab Data Lab Results 06/27/21 18:22: SARS-CoV-2 (PCR) Not detected, Influenza A Untype (PCR) Not detected, Influenza Type B (PCR) Not detected 06/27/21 19:15: WBC 5.6, RBC 4.36 L, Hgb 13.4 L, Hct 43.8, MCV 100.4 H, MCH 30.9, MCHC 30.7 L, RDW 15.6, Plt Count 201, MPV 9.5, Neut % (Auto) 49.1, Lymph % (Auto) 38.5, Swift % (Auto) 7.2, Eos % (Auto) 4.1, Baso % (Auto) 1.1, Neut # (Auto) 2.7, Lymph # (Auto) 2.1, Swift # (Auto) 0.4, Eos # (Auto) 0.2, Baso # (Auto) 0.1 06/27/21 19:15: Sodium 140, Potassium 3.6, Chloride 109 H, Carbon Dioxide 23, Anion Gap 11.6, BUN 31 H, Creatinine 1.30 H, Estimated Creat Clear 56, Estimated GFR 57 L, Est GFR ( Amer) 69, Glucose 174 H, Calcium 8.3 L, Total Bilirubin 0.9, AST 55, ALT 52, Alkaline Phosphatase 87, Troponin I < 0.01, NT-Pro-B Natriuret Pep 3420 H, Total Protein 5.7 L, Albumin 3.0 L, Globulin 2.7, Albumin/Globulin Ratio 1.1 06/27/21 19:15: Lipase 88 Result diagrams: 06/27/21 19:15 06/27/21 19:15 Orders (Tests/Meds): ED MEDICATIONS Discontinued Medications Generic Name Dose Route Start Last Admin Trade Name Freq PRN Reason Stop Dose Admin Furosemide 80 mg 06/27/21 19:16 06/27/21 19:20 Furosemide 40mg/4ml Vial IV 06/27/21 19:17 80 mg ONCE ONE Administration Morphine Sulfate 2 mg 06/27/21 20:07 06/27/21 20:08 Morphine 2mg/Ml Syringe IV 06/27/21 20:08 2 mg ONCE ONE Administration ORDERS Category Date Time Status Digoxin Stat Lab 06/27/21 19:15 Received Troponin I Q3H Lab 06/27/21 21:30 Ordered Troponin I Q3H Lab 06/28/21 00:30 Ordered - Radiology Data #1 Image(s): Chest Image Reviewed: Yes I reviewed the patient's radiology image, Yes I have reviewed radiologist's interpretation PROCEDURE INFORMATION: Exam: XR Chest Exam date and time: 06/27/2021 6:21 PM Age: 56 years old Clinical indication: Shortness of breath; Additional info: SOB TECHNIQUE: Imaging protocol: XR of the chest. Views: 1 view. COMPARISON: CR XR CHEST 2V 01/28/2021 10:54 AM FINDINGS: Tubes, catheters and devices: Dual lead left-sided cardiac pacemaker. Lungs: Hazy interstitial opacities in both lungs could reflect interstitial edema versus interstitial pneumonia. Granulomatous change. Pleural spaces: Mild bilateral pleural effusion. No pneumothorax. Heart/Mediastinum: Cardiomegaly. Bones/joints: Unremarkable. IMPRESSION: Interstitial opacities bilaterally could reflect edema versus pneumonia. Correlate clinically. - ECG Data Tracing #1 EKG interpreted by Dennis Osborne MD: Rhythm: Atrial fibrillation, also electronic pacemaker leads Rate: 109 [place]: normal Ectopy: PVCs versus aberrantly conducted beats Conduction: normal ST Segment Changes: none T Wave Changes: Nonspecific Q Waves: none No
[2021-06-27 18:30] VITALS: BP 119/79; PULSE 96; RESP 22; O2SAT 100
[2021-06-27 18:57] LABS: Coronavirus 19, PCR Not Detected (NotDetected); Influenza A, PCR Not Detected (NotDetected); Influenza B, PCR Not Detected (NotDetected)
[2021-06-27 19:26] LABS: Basophils # 0.1 K/mm3 (0-0.2); Basophils % 1.1 % (0.1-2.0); Eosinophils # 0.2 K/mm3 (0.0-0.4); Eosinophils % 4.1 % (0.1-12.0); Hematocrit 43.8 % (42.0-52.0); Hemoglobin 13.4 g/dL (14.1-18.0); Lipase 88 U/L (23-300); Lymphocytes # 2.1 K/mm3 (0.7-4.5); Lymphocytes % 38.5 % (10-50); Mean Corpuscular HGB Conc 30.7 g/dL (31.8-35.4); Mean Corpuscular Hemoglobin 30.9 pg (27.0-31.2); Mean Corpuscular Volume 100.4 fl (80-94); Mean Platelet Volume 9.5 fl (7.4-10.4); Monocytes # 0.4 K/mm3 (0.1-1.0); Monocytes % 7.2 % (1.7-9.3); Neutrophils # 2.7 K/mm3 (1.8-7.8); Neutrophils % 49.1 % (37.0-80.0); Platelet Count 201 K/mm3 (142-424); Red Blood Count 4.36 M/mm3 (4.60-6.20); Red Cell Distribution Width 15.6 % (11.5-17.5); White Blood Count 5.6 K/mm3 (4.8-10.8)
[2021-06-27 19:34] LABS: Alanine Aminotransferase 52 U/L (12-78); Albumin/Globulin Ratio 1.1 (1.1-1.8); Alkaline Phosphatase 87 U/L (38-126); Anion Gap 11.6 mEq/L (5-15); Aspartate Amino Transferase 55 U/L (17-59); Bilirubin,Total 0.9 mg/dl (0.2-1.3); Blood Urea Nitrogen 31 mg/dl (9-20); Calcium 8.3 mg/dl (8.4-10.2); Carbon Dioxide 23 mmol/L (22.0-30.0); Chloride 109 mmol/L (98-107); Creatinine Clearance Estimated 56 mL/min (50-200); Estimated Glomerular Filt Rate 57 ml/min (>60); GFR (African American) 69 ML/MIN (>60); Globulin 2.7 g/dL (1.3-3.2); Glucose 174 mg/dl (74-100); Potassium 3.6 mmoL/L (3.5-5.1); Sodium 140 mmol/L (136-145); Total Protein,Serum 5.7 g/dl (6.3-8.2)
[2021-06-27 19:45] LABS: NT Pro Brain Natriuretic Pep. 3420 pg/mL (0-125)
[2021-06-27 19:50] LABS: Troponin I < 0.01 ng/ml (0.00-0.034)
[2021-06-27 20:09] VITALS: BP 140/86; PULSE 80; RESP 16; TEMP 36.7; O2SAT 97; BMI 45.3
--- NOTE | 2021-06-27 20:12 | PC.NURSE ---
Pt was offered a schreiber and he denied.
--- NOTE | 2021-06-27 20:15 | PC.NURSE ---
Admitted to 203
[2021-06-27 20:26] VITALS: BP 127/90; PULSE 110; RESP 20; O2SAT 100
--- NOTE | 2021-06-27 20:56 | HMH.HP ---
*Admission Date: 06/27/21 *Chief complaint: sob *History of present illness: this patient presented -atient complains of swelling of his legs and abdomen with shortness of breath. States that his legs began swelling about 4 days ago. He then noticed some swelling and discomfort in his lower abdomen which has now progressed to his whole abdomen and he says it is making it hard for him to breathe. He has had this before from retained fluid and had to be admitted for diuresis. Only has some slight chest discomfort which he says is to be expected from this . Slight cough. No fever or hemoptysis. Denies vomiting. States he has had chronic diarrhea for several months. States he does not get much diuretic response from his Lasix. No known exposure to COVID-19. pt was admitted for chf - [facility] History I have reviewed the patient's past medical history: Yes Medical History: Reports:: Asthma, Cardiomyopathy, Congestive Heart Failure, Chronic Obstructive Pulmonary Disease (COPD), Coronary Artery Disease, Cerebrovascular Accident, Gastroesophageal Reflux Disease(GERD), Hyperlipidemia, Hypertension, Lung Disease, Myocardial Infarction, Peripheral Artery Disease Denies:: Cancer, Diabetes Mellitus Type 1, Diabetes Mellitus Type 2, Home Oxygen, Internal Pacemaker, MRSA, Seizures *Have you ever received a pneumonia vaccine?: No *Have you received a flu vaccine this season?: No Other Medical History: Reports: Arthritis, Cataracts Laterality Cases: Left: Other Other Surgeries: Yes: Angiogram, Angioplasty, Appendectomy, Cardiac Catheterization, Cardiac Surgery, Cholecystectomy, Colonoscopy, Coronary Stent, Other. No: Pacemaker Amputation: Yes (left 1-3rd) Fractures: No - *Social History Smoking Status: Current every day smoker Tobacco Type: cigarettes # Packs/Day (cigarettes): 1 #Yrs smoked (if former smoker): 1 Alcohol Intake: former Alcohol Intake Frequency:: other Substance Use Type: denies use *Occupational Status:: other Housing: apartment Household Members: none *Travel in the last 8 weeks: None Family Hx:: Cancer, Coronary Artery Disease, Diabetes, Heart Attack, Hyperlipidemia, Hypertension, Stroke, Substance abuse, Alcoholism Review of Systems - Review of Systems Review of systems:: pertinent systems reviewed and negative unless documented below - Constitutional Denies fever(s) - Eyes Denies discharge - ENT Denies facial pain - *Cardiovascular Reports shortness of breath, Reports leg swelling - *Respiratory Reports shortness of breath, Denies cough - *Gastrointestinal Denies abdominal pain, Denies vomiting - *Genitourinary Denies blood in urine - *Musculoskeletal Denies neck pain - Integumentary/Breasts Denies rash - *Neurologic Denies headache(s), Denies tingling/numbness/burning sensations, Denies seizure-like activity - Psychiatric Denies confusion Meds Home Medications Medication Instructions Recorded Confirmed Type buspirone 10 mg tablet 10 mg PO DAILY tab 07/18/20 06/27/21 History omeprazole 20 mg capsule,delayed 40 mg PO DAILY cap 09/23/20 06/27/21 History release fenofibrate micronized 134 mg 134 mg PO DAILY cap 03/11/21 06/27/21 History capsule linaclotide 72 mcg capsule 72 mcg PO DAILY cap 03/11/21 06/27/21 History rivaroxaban 20 mg tablet 20 mg PO DAILY #30 tab 03/11/21 06/27/21 Rx sacubitril 24 mg-valsartan 26 mg 1 tab PO BID tab 04/28/21 06/27/21 History tablet Furosemide [Furosemide 80mg Tab] See Rx Instructions .ROUTE BID 05/27/21 06/27/21 History Gabapentin 800 mg PO TID 05/27/21 06/27/21 History Insulin Aspart Prot/Insuln Asp 50 unit SQ BID 05/27/21 06/27/21 History [Insulin Aspart Pro Qmy89-57 Vl] Pen Needle, Diabetic, Safety [Easy See Rx Instructions .ROUTE 05/27/21 06/27/21 History Touch Safety Pen Needle] .MEDSUPPLY buPROPion HCL [Wellbutrin SR 75mg 75 mg PO BID 05/27/21 06/27/21 History Tablet] aspirin 81 mg tablet,delayed 81 mg PO DAILY #90 tab
[2021-06-27 21:01] VITALS: BP 143/96; PULSE 105; RESP 20; TEMP 36.6; O2SAT 99
[2021-06-27 21:01] LABS: Digoxin < 0.40 ng/ml (0.2-2.00)
--- NOTE | 2021-06-27 21:17 | INFXCTL.NOTE ---
patient up to floor via wheelchair.
--- NOTE | 2021-06-27 21:18 | PC.NURSE ---
patient up to floor @ 21:17 via wheelchair.
[2021-06-27 21:41] VITALS: PULSE 111
[2021-06-27 23:13] LABS: Troponin I < 0.01 ng/ml (0.00-0.034)
[2021-06-28] VITALS (9 sets, daily range): BP systolic 107–138; BP diastolic 64–83; PULSE 62–110; RESP 18–21; TEMP 36.4–36.6; O2SAT 92–100; BMI 45.3
[2021-06-28 00:37] LABS: POC Glucose,Bedside 129 (70-110)
[2021-06-28 01:12] LABS: Troponin I < 0.01 ng/ml (0.00-0.034)
--- NOTE | 2021-06-28 02:47 | PC.NURSE ---
No acute events overnight. A&O. Lungs are diminished with crackles present. on room air. Pt has 2+ pitting edema to BLE. Abd is round and nontender. Bowel sounds x4. Pt has not c/o pain this shift and has slept well through the night. VSS, call light in reach, no concerns at this time.
[2021-06-28 07:57] LABS: Anion Gap 13.7 mEq/L (5-15); Blood Urea Nitrogen 34 mg/dl (9-20); Calcium 8.1 mg/dl (8.4-10.2); Carbon Dioxide 25 mmol/L (22.0-30.0); Chloride 105 mmol/L (98-107); Creatinine Clearance Estimated 47 mL/min (50-200); Estimated Glomerular Filt Rate 49 ml/min (>60); GFR (African American) 59 ML/MIN (>60); Glucose 169 mg/dl (74-100); Potassium 3.7 mmoL/L (3.5-5.1); Sodium 140 mmol/L (136-145)
[2021-06-28 11:06] LABS: POC Glucose,Bedside 163 (70-110)
[2021-06-28 12:11] LABS: POC Glucose,Bedside 208 (70-110)
--- NOTE | 2021-06-28 12:24 | HMH.PHAVTE ---
[facility] Pharmacy VTE Monitoring - Patient Demographics Admission date: 06/27/21 Report Date: 06/28/21 Time: 12:24 Allergies/Adverse Reactions: Patient Allergies No Known Allergies Allergy (Verified 06/09/21 11:11) Height: 1.65 m Weight: 123.559 kg Patient Problems: Current Active Problems Body mass index (BMI) of 40.1 to 44.9 in adult (Acute) Chronic renal insufficiency, stage III (moderate) (Acute) Congestive heart failure (Chronic) - VTE Risk Labs: VTE Related Lab Results Hgb 13.4 g/dL (14.1-18.0) L 06/27/21 19:15 Hct 43.8 % (42.0-52.0) 06/27/21 19:15 Plt Count 201 K/mm3 (142-424) 06/27/21 19:15 BUN 34 mg/dl (9-20) H 06/28/21 07:05 Creatinine 1.50 mg/dl (0.66-1.25) H 06/28/21 07:05 Estimated Creat Clear 47 mL/min (50-200) 06/28/21 07:05 VTE Score: 3 VTE Risk Level: Low Risk - Prophylaxis VTE Prophylaxis Ordered?: Yes Types of VTE Prophylaxis: TEDS Knee High Location of Applied Device: Bilateral Lower Extremeties
--- NOTE | 2021-06-28 12:31 | HMH.PHAINT ---
MEDICATION RECONCILIATION COMPLETED ON PATIENT USING EXTERNAL FILL HISTORY FROM PHARMACY AND LIST FROM CARDIOLOGY OFFICE. -HENRY AMADOD
[2021-06-28 16:42] LABS: POC Glucose,Bedside 139 (70-110)
--- NOTE | 2021-06-28 17:20 | PC.NURSE ---
Pt has been pleasant and cooperative this shift. A&O X4. No complaints of pain or SOA. Pt is currently on room air with sats. >90%. Lungs CTA. Telemetry reveals A-Fib with occasional pacer spikes. 2+ pitting edema noted to BLE. Skin is C/D/I. Pt ambulates independently in the room. Pt also sat up in the recliner intermittently this shift. Urine is clear and dark-yellow. No BM today. FSBS results have been 208 and 139. 20 G peripheral IV in the LT forearm is patent and SL. VSS. Call light within reach. Will continue to monitor.
--- NOTE | 2021-06-28 20:02 | P.PN_ITS ---
Internal Medicine - PN: Subj *Date: 06/29/21 *Time: 06:40 Interval history: doing better- breathing better - no chest pain Exam Vital signs and Labs for Last 24 Hours: Temp Pulse Resp BP Pulse Ox 97.6 F 85 18 114/75 98 06/28/21 15:24 06/28/21 16:00 06/28/21 15:24 06/28/21 15:24 06/28/21 15:24 Laboratory Results - last 24 hr 06/27/21 19:15: Digoxin < 0.40 06/27/21 21:30: Troponin I < 0.01 06/27/21 21:50: POC Glucose 129 H 06/28/21 00:19: Troponin I < 0.01 06/28/21 05:45: POC Glucose 163 H 06/28/21 07:05: Sodium 140, Potassium 3.7, Chloride 105, Carbon Dioxide 25, Anion Gap 13.7, BUN 34 H, Creatinine 1.50 H, Estimated Creat Clear 47, Estimated GFR 49 L, Est GFR ( Amer) 59, Glucose 169 H, Calcium 8.1 L 06/28/21 11:51: POC Glucose 208 H 06/28/21 16:27: POC Glucose 139 H I & O for Last 24 hours: Intake & Output 06/26/21 06/27/21 06/28/21 06/29/21 11:59 11:59 11:59 11:59 Intake Total 480 / 480 480 / 480 Output Total 575 / 575 350 / 350 Balance -95 / -95 130 / 130 Weight 272 lb 6.4 oz - Constitutional no acute distress, obese - *Routine HEENT Exam Head: Present: normocephalic Eye: Present: EOMI, PERRL ENT: Present: mucous membranes dry - *Routine Neck Exam Absent: JVD - *Routine Respiratory Exam Present: decreased breath sounds - *Routine Cardiovascular Exam Present: RRR - *Routine Abdominal Exam Present: soft - *Routine Extremities Exam Present: edema - *Routine Skin Exam Present: intact - *Routine Neurological Exam Present: alert, CN II-XII intact - Routine Psychiatric Exam Present: normal affect Assessment and Plan (1) Congestive heart failure Status: Chronic Qualifiers: Heart failure type: unspecified Heart failure chronicity: acute on chronic Qualified Code(s): I50.9 - Heart failure, unspecified Category: Medical Code(s): I50.9 - Heart failure, unspecified (2) Body mass index (BMI) of 40.1 to 44.9 in adult Status: Acute Category: Medical Code(s): Z68.41 - Body mass index [BMI]40.0- 44.9, adult (3) Chronic renal insufficiency, stage III (moderate) Status: Acute Qualifiers: Chronic kidney disease stage 3 subtype: unspecified whether 3a or 3b Qualified Code(s): N18.30 - Chronic kidney disease, stage 3 unspecified Category: Medical Code(s): N18.3 - Chronic kidney disease, stage 3 (moderate)
[2021-06-29] VITALS: BP 136/74; PULSE 68; PULSE 90; RESP 19; TEMP 36.6; O2SAT 92
--- NOTE | 2021-06-29 03:16 | PC.NURSE ---
no acute changes overnight. pt A&O. lungs CTA on room air. 2+ pitting edema to BLE. Afib on tele. pt voiding clear dark yellow urine. No c/o pain this shift. VSS, call light in reach, no concerns at this time.
[2021-06-29 03:17] LABS: POC Glucose,Bedside 159 (70-110)
[2021-06-29 03:45] VITALS: BP 120/66; PULSE 74; RESP 24; TEMP 36.5; O2SAT 98
[2021-06-29 04:00] VITALS: PULSE 100
[2021-06-29 05:23] VITALS: BMI 46.0
[2021-06-29 06:13] LABS: POC Glucose,Bedside 145 (70-110)
[2021-06-29 08:00] VITALS: PULSE 106
[2021-06-29 08:06] VITALS: PULSE 80
[2021-06-29 08:20] VITALS: BP 108/72; PULSE 97; RESP 20; TEMP 36.5; O2SAT 99
[2021-06-29 08:31] LABS: Basophils # 0.1 K/mm3 (0-0.2); Basophils % 1.3 % (0.1-2.0); Eosinophils # 0.1 K/mm3 (0.0-0.4); Eosinophils % 2.7 % (0.1-12.0); Hemoglobin 13.1 g/dL (14.1-18.0); Lymphocytes % 38.1 % (10-50); Mean Corpuscular HGB Conc 29.9 g/dL (31.8-35.4); Mean Corpuscular Hemoglobin 30.9 pg (27.0-31.2); Mean Corpuscular Volume 103.5 fl (80-94); Mean Platelet Volume 10.5 fl (7.4-10.4); Monocytes # 0.3 K/mm3 (0.1-1.0); Monocytes % 6.3 % (1.7-9.3); Neutrophils # 2.7 K/mm3 (1.8-7.8); Neutrophils % 51.6 % (37.0-80.0); Platelet Count 180 K/mm3 (142-424); Red Blood Count 4.25 M/mm3 (4.60-6.20); Red Cell Distribution Width 15.5 % (11.5-17.5); White Blood Count 5.2 K/mm3 (4.8-10.8)
[2021-06-29 08:34] LABS: Anion Gap 13.1 mEq/L (5-15); Blood Urea Nitrogen 40 mg/dl (9-20); Calcium 8.4 mg/dl (8.4-10.2); Carbon Dioxide 27 mmol/L (22.0-30.0); Chloride 104 mmol/L (98-107); Creatinine Clearance Estimated 44 mL/min (50-200); Estimated Glomerular Filt Rate 45 ml/min (>60); GFR (African American) 55 ML/MIN (>60); Glucose 165 mg/dl (74-100); Potassium 4.1 mmoL/L (3.5-5.1); Sodium 140 mmol/L (136-145)
--- NOTE | 2021-06-29 08:43 | HMH.DCSUM ---
General - General Admission date:: 06/27/21 Discharge date: 06/29/21 HPI HPI: this patient presented -atient complains of swelling of his legs and abdomen with shortness of breath. States that his legs began swelling about 4 days ago. He then noticed some swelling and discomfort in his lower abdomen which has now progressed to his whole abdomen and he says it is making it hard for him to breathe. He has had this before from retained fluid and had to be admitted for diuresis. Only has some slight chest discomfort which he says is to be expected from this . Slight cough. No fever or hemoptysis. Denies vomiting. States he has had chronic diarrhea for several months. States he does not get much diuretic response from his Lasix. No known exposure to COVID-19. pt was admitted for chf - Hospital Course Hospital Course: pt has improved with iv meds and has been active with stable vital signs and labs ok - will d/c to see card in am Objective Vital signs: Temp Pulse Resp BP Pulse Ox 97.7 F 97 H 20 108/72 L 99 06/29/21 08:20 06/29/21 08:20 06/29/21 08:20 06/29/21 08:20 06/29/21 08:20 no acute distress, obese - *Routine HEENT Exam Head: Present: normocephalic Eye: Present: EOMI, PERRL ENT: Present: mucous membranes dry - *Routine Neck Exam Present: supple. Absent: JVD - *Routine Respiratory Exam Present: decreased breath sounds - *Routine Cardiovascular Exam Present: RRR, murmur, S4 - *Routine Abdominal Exam Present: soft - *Routine Extremities Exam Present: edema. Absent: calf tenderness - *Routine Skin Exam Present: intact - *Routine Neurological Exam Present: alert, oriented X3, CN II-XII intact. Absent: motor deficit - Routine Psychiatric Exam Present: normal affect Results Labs on day of discharge: Labs from last 24 hours 06/29/21 06/29/21 06/29/21 08:11 08:11 05:34 WBC 5.2 RBC 4.25 L Hgb 13.1 L Hct 44.0 MCV 103.5 H MCH 30.9 MCHC 29.9 L RDW 15.5 Plt Count 180 MPV 10.5 H Neut % (Auto) 51.6 Lymph % (Auto) 38.1 [place] % (Auto) 6.3 Eos % (Auto) 2.7 Baso % (Auto) 1.3 Neut # (Auto) 2.7 Lymph # (Auto) 2.0 [place] # (Auto) 0.3 Eos # (Auto) 0.1 Baso # (Auto) 0.1 Sodium 140 Potassium 4.1 Chloride 104 Carbon Dioxide 27 Anion Gap 13.1 BUN 40 H Creatinine 1.60 H Estimated Creat Clear 44 Estimated GFR 45 L Est GFR ( Amer) 55 L Glucose 165 H POC Glucose 145 H Calcium 8.4 06/28/21 06/28/21 06/28/21 20:42 16:27 11:51 WBC RBC Hgb Hct MCV MCH MCHC RDW Plt Count MPV Neut % (Auto) Lymph % (Auto) [place] % (Auto) Eos % (Auto) Baso % (Auto) Neut # (Auto) Lymph # (Auto) [place] # (Auto) Eos # (Auto) Baso # (Auto) Sodium Potassium Chloride Carbon Dioxide Anion Gap BUN Creatinine Estimated Creat Clear Estimated GFR Est GFR ( Amer) Glucose POC Glucose 159 H 139 H 208 H Calcium 06/28/21 05:45 WBC RBC Hgb Hct MCV MCH MCHC RDW Plt Count MPV Neut % (Auto) Lymph % (Auto) [place] % (Auto) Eos % (Auto) Baso % (Auto) Neut # (Auto) Lymph # (Auto) [place] # (Auto) Eos # (Auto) Baso # (Auto) Sodium Potassium Chloride Carbon Dioxide Anion Gap BUN Creatinine Estimated Creat Clear Estimated GFR Est GFR ( Amer) Glucose POC Glucose 163 H Calcium DS: Diagnosis - Discharge Diagnosis (1) Congestive heart failure Status: Chronic (2) Body mass index (BMI) of 40.1 to 44.9 in adult Status: Acute (3) Chronic renal insufficiency, stage III (moderate) Status: Acute (4) YEE (obstructive sleep apnea) Status: Acute (5) Diabetes mellitus Status: Acute (6) Lumbosacral radiculopathy due to degenerative joint disease of spine Status: Chronic (7) Degenerative carlitos
== END 2021-06-29 10:05 | disposition home or self-care (01) ==
LOC: ER 18:02 → 2ND 20:11
PROVIDERS: Admitting Provider Emergency Medicine; Emergency Provider Emergency Medicine; PCP Emergency Medicine; Visit Provider Emergency Medicine
DX: I13.0 Hypertensive heart and chronic kidney disease with heart failure and stage 1 through stage 4 chronic kidney disease, or unspecified chronic kidney disease (principal); I50.43 Acute on chronic combined systolic (congestive) and diastolic (congestive) heart failure; Z68.41 Body mass index [BMI] 40.0-44.9, adult; I42.9 Cardiomyopathy, unspecified; J44.9 Chronic obstructive pulmonary disease, unspecified; I25.10 Atherosclerotic heart disease of native coronary artery without angina pectoris; F17.210 Nicotine dependence, cigarettes, uncomplicated; N18.30 Chronic kidney disease, stage 3 unspecified; E11.22 Type 2 diabetes mellitus with diabetic chronic kidney disease; Z79.4 Long term (current) use of insulin; E11.40 Type 2 diabetes mellitus with diabetic neuropathy, unspecified; Z86.73 Personal history of transient ischemic attack (TIA), and cerebral infarction without residual deficits; M19.90 Unspecified osteoarthritis, unspecified site; Z20.822 Contact with and (suspected) exposure to COVID-19; G47.33 Obstructive sleep apnea (adult) (pediatric); Z95.820 Peripheral vascular angioplasty status with implants and grafts; M47.896 Other spondylosis, lumbar region; I25.2 Old myocardial infarction; E66.01 Morbid (severe) obesity due to excess calories; K21.9 Gastro-esophageal reflux disease without esophagitis; E11.51 Type 2 diabetes mellitus with diabetic peripheral angiopathy without gangrene; G89.29 Other chronic pain; Z95.5 Presence of coronary angioplasty implant and graft; E78.5 Hyperlipidemia, unspecified; M47.897 Other spondylosis, lumbosacral region
CPT/HCPCS: 36415; 71045; 80048; 80053; 80162; 82962; 83690; 83880; 84484; 85025; 93005; 96375; 99284; U0003

== ENCOUNTER → 2021-06-30 17:29 | Outpatient (CLI) | payer MEDICARE, MEDICAID, SELFPAY ==
[2021-06-30 21:32] LABS: Barbiturates Screen,Urine Negative ng/ml (<200); Benzodiazepines Screen,Urine Negative ng/ml (<200)
[2021-06-30 21:33] LABS: Cannabinoid Screen,Urine Negative ng/ml (<50); Cocaine Screen,Urine Negative ng/ml (<300)
[2021-06-30 21:34] LABS: Methadone Screen,Urine Negative ng/ml (<300)
[2021-06-30 21:35] LABS: Opiate Screen,Urine Positive ng/ml (<300); Phencyclidine Screen,Urine Negative ng/ml (<25)
[2021-06-30 21:39] LABS: Amphetamine/Metha Screen,Urine Negative ng/ml (<1000)
== END ==
PROVIDERS: Emergency Medicine; Visit Provider Physician Assistant
DX: M47.27 Other spondylosis with radiculopathy, lumbosacral region (principal)
CPT/HCPCS: 80305

== ENCOUNTER 2021-07-05 16:10 | Emergency (ER) | payer MEDICARE, MEDICAID, SELFPAY ==
[2021-07-05 16:05] VITALS: BP 92/72; PULSE 96; RESP 16; TEMP 37.2; O2SAT 96; BMI 44.3
--- NOTE | 2021-07-05 16:17 | ECG_ITS ---
APPROVED REPORT Exam: Resting ECG HR:124 bpm ECG Measurements Heart Rate 124 AXES QRSd 116 QRS 94 QT 328 T -6 QTc 471 Conclusion Undetermined rhythm Rightward axis Nonspecific T wave abnormality Abnormal ECG Electronically signed by : Epi Sparks MD 07/06/2021 18:08:47
--- NOTE | 2021-07-05 16:17 | XR_ITS ---
PROCEDURE INFORMATION: Exam: XR Chest Exam date and time: 07/05/2021 4:17 PM Age: 56 years old Clinical indication: Patient HX: Non responsive brought by ambulance; Additional info: AMS TECHNIQUE: Imaging protocol: XR of the chest. Views: 1 view. COMPARISON: CR XR CHEST PORTABLE 06/27/2021 6:40 PM FINDINGS: Tubes, catheters and devices: Cardiac pulse generator in place. Lungs: Asymmetric airspace disease seen in the mid to upper left lung. Pulmonary vascular congestion. Pleural spaces: Unremarkable. No pleural effusion. No pneumothorax. Heart/Mediastinum: Cardiomegaly. Bones/joints: Unremarkable. IMPRESSION: 1. Cardiomegaly and pulmonary vascular congestion. 2. Possible superimposed pneumonia at the left lung apex.
--- NOTE | 2021-07-05 16:18 | CT_ITS ---
PROCEDURE INFORMATION: Exam: CT Head Without Contrast Exam date and time: 07/05/2021 4:18 PM Age: 56 years old Clinical indication: Coma or unconsciousness; Patient HX: Came by ambulance non responsive; Additional info: AMS TECHNIQUE: Imaging protocol: Computed tomography of the head without contrast. Radiation optimization: All CT scans at this facility use at least one of these dose optimization techniques: automated exposure control; mA and/or kV adjustment per patient size (includes targeted exams where dose is matched to clinical indication); or iterative reconstruction. COMPARISON: BRW/O MRI-BRAIN W/O 09/22/2017 1:28 PM FINDINGS: Brain: Old right parietal lobe infarct. No acute infarct or hemorrhage. Mild changes of chronic small vessel ischemia within the cerebral white matter regions bilaterally. No cerebral atrophy. Cerebral ventricles: No ventriculomegaly. Paranasal sinuses: Visualized sinuses are unremarkable. No fluid levels. Mastoid air cells: Visualized mastoid air cells are well aerated. Bones/joints: Unremarkable. No acute fracture. Soft tissues: Unremarkable. IMPRESSION: No acute intracranial abnormality.
[2021-07-05 16:24] LABS: Basophils % 0.8 % (0.1-2.0); Eosinophils # 0.1 K/mm3 (0.0-0.4); Eosinophils % 2.8 % (0.1-12.0); Hematocrit 43.8 % (42.0-52.0); Hemoglobin 13.5 g/dL (14.1-18.0); Lymphocytes # 1.4 K/mm3 (0.7-4.5); Lymphocytes % 30.1 % (10-50); Mean Corpuscular HGB Conc 30.8 g/dL (31.8-35.4); Mean Corpuscular Hemoglobin 31.2 pg (27.0-31.2); Mean Corpuscular Volume 101.3 fl (80-94); Microscopic, Urine URINE MICROSCOPIC (MICROSCOPIC); Monocytes # 0.3 K/mm3 (0.1-1.0); Neutrophils # 2.7 K/mm3 (1.8-7.8); Neutrophils % 60.2 % (37.0-80.0); Platelet Count 226 K/mm3 (142-424); Red Blood Count 4.32 M/mm3 (4.60-6.20); Red Cell Distribution Width 15.4 % (11.5-17.5); White Blood Count 4.5 K/mm3 (4.8-10.8)
[2021-07-05 16:24] LABS: Coronavirus 19, PCR Not Detected (NotDetected); Influenza A, PCR Not Detected (NotDetected); Influenza B, PCR Not Detected (NotDetected)
[2021-07-05 16:26] LABS: Chloride 107 mmol/L (98-107); Potassium 3.8 mmoL/L (3.5-5.1); Sodium 141 mmol/L (136-145)
[2021-07-05 16:29] LABS: Alanine Aminotransferase 43 U/L (12-78); Albumin Level 3.1 g/dl (3.5-5.0); Alkaline Phosphatase 67 U/L (38-126); Anion Gap 13.8 mEq/L (5-15); Aspartate Amino Transferase 59 U/L (17-59); Bilirubin,Total 1.2 mg/dl (0.2-1.3); Blood Urea Nitrogen 53 mg/dl (9-20); Calcium 8.4 mg/dl (8.4-10.2); Carbon Dioxide 24 mmol/L (22.0-30.0); Creatinine Clearance Estimated 52 mL/min (50-200); Estimated Glomerular Filt Rate 45 ml/min (>60); GFR (African American) 55 ML/MIN (>60); Glucose 115 mg/dl (74-100); Lactic Acid 0.9 mmol/L (0.7-2.1); Total Protein,Serum 6.1 g/dl (6.3-8.2)
[2021-07-05 16:35] LABS: Appearance,Urine CLEAR (Clear); Bilirubin,Urine Negative (Negative); Blood, Urine TRACE-I (Negative); Color,Urine YELLOW (Yellow); Glucose,Urine (UA) Negative (Negative); Ketones,Urine Negative (Negative); Leukocyte Esterase,Urine TRACE (Negative); Nitrate,Urine Negative (Negative); PH,Urine 5.5 (5.0-8.5); Protein,Urine TRACE (Negative); Urobilinogen,Urine 0.2 EU/dl (0.2)
[2021-07-05 16:40] LABS: Digoxin < 0.40 ng/ml (0.2-2.00)
[2021-07-05 16:41] LABS: Troponin I 0.04 ng/ml (0.00-0.034)
[2021-07-05 16:47] VITALS: BP 110/67; PULSE 72; RESP 16; O2SAT 94
[2021-07-05 16:49] LABS: WBC,Urine Occasional #/hpf (0-3)
[2021-07-05 16:54] LABS: Procalcitonin 0.287 ng/mL (0.0-2.0)
[2021-07-05 17:00] VITALS: BP 130/95; PULSE 110; RESP 20; O2SAT 98
--- NOTE | 2021-07-05 17:00 | PC.NURSE ---
PT AWAKE YELLING WHERE AM I
--- NOTE | 2021-07-05 17:20 | PC.NURSE ---
PT INCONTINENT OF STOOL. PT CLEANED LINENS CHANGED
--- NOTE | 2021-07-05 18:04 | HMH.EDGENADL ---
ED Disposition Clinical Impression: Opiate overdose Qualifiers: Encounter type: initial encounter Injury intent: accidental or unintentional Qualified Code(s): T40.601A - Poisoning by unspecified narcotics, accidental (unintentional), initial encounter Disposition: Home Health Service Condition on Discharge: Good Additional Instructions: Decrease your Percocet 10 mg dosage to 3 times a day instead of 4 times a day. Follow-up with Dr. Fortune in the office, you may see him tomorrow at 10 AM or 1 PM. Return to the emergency department if symptoms worsen. Referrals: Morro Fortune MD [Primary Care Provider] - - Critical Care Critical Care Time: No Attestation: On 07/05/21, the high probability of a clinically significant, sudden or life threatening deterioration of the following system(s) required my full and direct attention, intervention and personal management. The time I documented below is in addition to time spent performing reported procedures but includes the following listed in this critical care notation. Medical Decision Making - Medical Records Medical records reviewed: Yes: I reviewed the patient's medical records. MR Comment: Patient recently seen by me in the emergency room here and admitted to the hospital for congestive heart failure/swelling. He followed up with his primary care doctor on 06/30/2021 in the office. His chronic pain medication was increased from Percocet 7.5 mg 4 times a day to Percocet 10 mg 4 times a day. - Marcial Inquiry Pt receiving controlled substance: No Vital Signs: 07/05/21 16:05 07/05/21 16:47 07/05/21 17:00 Temperature 99 F Temperature Source Oral Pulse Rate 72 110 H Pulse Rate [Radial] 96 H Respiratory Rate 16 16 20 Blood Pressure 110/67 130/95 H Blood Pressure [Right Radial Artery] 92/72 L Blood Pressure Mean [Right Radial Artery] 78 Blood Pressure Position Sitting Blood Pressure Position [Right Radial Artery] Sitting 02 Sat by Pulse Oximetry 96 94 L 98 Oxygen Delivery Method Nasal Cannula Nasal Cannula Nasal Cannula Oxygen Flow Rate (LPM) 2 2 2 - Lab Data Lab Results 07/05/21 16:00: SARS-CoV-2 (PCR) Not detected, Influenza A Untype (PCR) Not detected, Influenza Type B (PCR) Not detected 07/05/21 16:10: WBC 4.5 L, RBC 4.32 L, Hgb 13.5 L, Hct 43.8, MCV 101.3 H, MCH 31.2, MCHC 30.8 L, RDW 15.4, Plt Count 226, MPV 9.0, Neut % (Auto) 60.2, Lymph % (Auto) 30.1, [place] % (Auto) 6.0, Eos % (Auto) 2.8, Baso % (Auto) 0.8, Neut # (Auto) 2.7, Lymph # (Auto) 1.4, [place] # (Auto) 0.3, Eos # (Auto) 0.1, Baso # (Auto) 0.0 07/05/21 16:10: Sodium 141, Potassium 3.8, Chloride 107, Carbon Dioxide 24, Anion Gap 13.8, BUN 53 H, Creatinine 1.60 H, Estimated Creat Clear 52, Estimated GFR 45 L, Est GFR ( Amer) 55 L, Glucose 115 H, Calcium 8.4, Total Bilirubin 1.2, AST 59, ALT 43, Alkaline Phosphatase 67, Troponin I 0.04 H, Total Protein 6.1 L, Albumin 3.1 L, Globulin 3.0, Albumin/Globulin Ratio 1.0 L 07/05/21 16:10: Lactate 0.9 07/05/21 16:10: Urine Color Yellow, Urine Appearance Clear, Urine pH 5.5, Ur Specific [place] 1.020, Urine Protein Trace, Urine Glucose (UA) Negative, Urine Ketones Negative, Urine Blood Trace-i, Urine Nitrate Negative, Urine Bilirubin Negative, Urine Urobilinogen 0.2, Ur Leukocyte Esterase Trace, Urine RBC None, Urine WBC Occasional, Ur Squamous Epith Cells 3-5, Urine Bacteria None 07/05/21 16:10: Procalcitonin 0.287 07/05/21 16:10: Digoxin < 0.40 Result diagrams: 07/05/21 16:10 07/05/21 16:10 Orders (Tests/Meds): ED MEDICATIONS Discontinued Medications Generic Name Dose Route Start Last Admin Trade Name Freq PRN Reason Stop Dose Admin Naloxone HCl 2 mg 07/05/21 16:45 07/05/21 16:45 Naloxone 2mg/2ml Syringe IV 07/05/21 16:46 2 mg ONCE ONE Administration ORDERS Category Date Time Status Troponin I Q3H Lab 07/05/21 19:30 Ordered Troponin I Q3H Lab 07/05/21 22:30 Ordered Blood Culture Stat Micro 07/05/21 16:17
[2021-07-05 19:19] VITALS: BP 125/78; PULSE 78; RESP 20; TEMP 36.6; O2SAT 98
== END 2021-07-05 19:20 | disposition home health service (06) ==
PROVIDERS: Emergency Provider Emergency Medicine; PCP Emergency Medicine
DX: T40.601A Poisoning by unspecified narcotics, accidental (unintentional), initial encounter (principal); I50.9 Heart failure, unspecified; I48.0 Paroxysmal atrial fibrillation; I25.2 Old myocardial infarction; F17.210 Nicotine dependence, cigarettes, uncomplicated; Z79.899 Other long term (current) drug therapy; Z20.822 Contact with and (suspected) exposure to COVID-19
CPT/HCPCS: 70450; 71045; 80053; 80162; 81001; 83605; 84145; 84484; 85025; 93005; 96374; 99283; C9803; J2310; U0003; U0005

== ENCOUNTER 2021-07-14 16:24 | Emergency (ER) | payer MEDICARE, MEDICAID, SELFPAY ==
[2021-07-14 16:25] VITALS: BP 143/107; PULSE 108; RESP 18; TEMP 36.9; O2SAT 100; BMI 41.5
[2021-07-14 16:46] VITALS: BMI 41.5
[2021-07-14 17:09] LABS: Basophils % 0.5 % (0.1-2.0); Chloride 105 mmol/L (98-107); Eosinophils # 0.1 K/mm3 (0.0-0.4); Eosinophils % 0.9 % (0.1-12.0); Hematocrit 46.8 % (42.0-52.0); Hemoglobin 14.6 g/dL (14.1-18.0); Lymphocytes # 1.4 K/mm3 (0.7-4.5); Lymphocytes % 23.6 % (10-50); Mean Corpuscular HGB Conc 31.1 g/dL (31.8-35.4); Mean Corpuscular Hemoglobin 31.5 pg (27.0-31.2); Mean Corpuscular Volume 101.1 fl (80-94); Mean Platelet Volume 9.4 fl (7.4-10.4); Monocytes # 0.3 K/mm3 (0.1-1.0); Monocytes % 5.8 % (1.7-9.3); Neutrophils % 69.2 % (37.0-80.0); Platelet Count 285 K/mm3 (142-424); Potassium 3.9 mmoL/L (3.5-5.1); Red Blood Count 4.63 M/mm3 (4.60-6.20); Red Cell Distribution Width 15.4 % (11.5-17.5); Sodium 143 mmol/L (136-145); White Blood Count 5.8 K/mm3 (4.8-10.8)
[2021-07-14 17:12] LABS: Alanine Aminotransferase 41 U/L (12-78); Albumin Level 3.4 g/dl (3.5-5.0); Albumin/Globulin Ratio 1.2 (1.1-1.8); Alkaline Phosphatase 97 U/L (38-126); Anion Gap 13.9 mEq/L (5-15); Aspartate Amino Transferase 47 U/L (17-59); Bilirubin,Total 1.2 mg/dl (0.2-1.3); Blood Urea Nitrogen 29 mg/dl (9-20); Carbon Dioxide 28 mmol/L (22.0-30.0); Creatinine Clearance Estimated 61 mL/min (50-200); Estimated Glomerular Filt Rate 63 ml/min (>60); GFR (African American) 76 ML/MIN (>60); Globulin 2.9 g/dL (1.3-3.2); Glucose 254 mg/dl (74-100); Lipase 138 U/L (23-300); Total Protein,Serum 6.3 g/dl (6.3-8.2)
--- NOTE | 2021-07-14 17:47 | HMH.EDGENADL ---
ED Disposition Clinical Impression: Chronic abdominal pain, Hypertensive urgency Disposition: Home, Self-Care Condition on Discharge: Good Instructions: DI for Acute Abdominal Pain Referrals: Morro Fortune MD [Primary Care Provider] - 3 days Time of Disposition: 17:53 - Critical Care Critical Care Time: No Attestation: On 07/14/21, the high probability of a clinically significant, sudden or life threatening deterioration of the following system(s) required my full and direct attention, intervention and personal management. The time I documented below is in addition to time spent performing reported procedures but includes the following listed in this critical care notation. Medical Decision Making - Medical Records Medical records reviewed: Yes: I reviewed the patient's medical records. - Marcial Inquiry Pt receiving controlled substance: No Vital Signs: 07/14/21 16:25 Temperature 98.4 F Temperature Source Oral Pulse Rate [Right] 108 H Respiratory Rate 18 Blood Pressure [Right Arm] 143/107 H Blood Pressure Mean [Right Arm] 119 02 Sat by Pulse Oximetry 100 Oxygen Delivery Method Room Air - Lab Data Lab results reviewed: Yes: I reviewed the patient's lab results. Lab Results 07/14/21 16:42: WBC 5.8, RBC 4.63, Hgb 14.6, Hct 46.8, MCV 101.1 H, MCH 31.5 H, MCHC 31.1 L, RDW 15.4, Plt Count 285, MPV 9.4, Neut % (Auto) 69.2, Lymph % (Auto) 23.6, [place] % (Auto) 5.8, Eos % (Auto) 0.9, Baso % (Auto) 0.5, Neut # (Auto) 4.0, Lymph # (Auto) 1.4, [place] # (Auto) 0.3, Eos # (Auto) 0.1, Baso # (Auto) 0.0 07/14/21 16:42: Sodium 143, Potassium 3.9, Chloride 105, Carbon Dioxide 28, Anion Gap 13.9, BUN 29 H, Creatinine 1.20, Estimated Creat Clear 61, Estimated GFR 63, Est GFR ( Amer) 76, Glucose 254 H, Calcium 9.0, Total Bilirubin 1.2, AST 47, ALT 41, Alkaline Phosphatase 97, Total Protein 6.3, Albumin 3.4 L, Globulin 2.9, Albumin/Globulin Ratio 1.2, Lipase 138 Result diagrams: 07/14/21 16:42 07/14/21 16:42 Medical Decision Narrative: 56yo M evaluated for chronic abdominal pain. Patient no acute distress on initial evaluation. He is noted to have hypertensive urgency. Patient is requesting medications for pain but has a history of abusing his pain medications. He is simply being treated with a GI cocktail and hydralazine. His laboratory studies are unremarkable. Given his complaint of abdominal pain rating through to his back and his hypertension, concern for abdominal aneurysm. Patient underwent CTA of the aorta in April of this year that showed a normal caliber aorta, making aneurysm far less likely. After symptom management, the patient be discharged home for PCP follow-up. General Adult HPI - General Chief complaint: Abdominal Pain Stated complaint: pain stomach and back Time Seen by Provider: 07/14/21 17:47 Mode of Arrival: Ambulatory Limitations: No Limitations Description of Symptoms (Recalled from ER Triage Doc. by RN): C/O GENERALIZED ABDOMINAL PAIN FOR SEVERAL MONTHS WITH WORSENING OVER THE PAST 2 DAYS. DENIES DIARRHEA BUT STATES IT HAS BEEN RUNNY - History of Present Illness HPI narrative: 56yo M with past medical history significant hypertension, diabetes, morbid obesity presenting with worsening abdominal pain. He states he had abdominal pain for greater than 7 months. 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 He reports being prescribed a medication but no longer taking it. He states he drank some milk the other day to encourage bowel movement but that has not fully relieved his symptoms. He denies any fever. He denies any nausea or vomiting. - Related Data Home Medications Medication Instructions Recorded Confirmed buspirone 10 mg tablet 10 mg PO DAILY tab 07/18/20 06/30/21 omeprazole 20 mg capsule,delayed 40 mg PO DAILY cap 09/23/20 06/30/21 release fenofibrate micronized 134 mg 134 mg PO DAILY cap 03/11/21 06/30/21 capsule linaclotide 72 m
[2021-07-14 18:48] VITALS: BP 125/83; PULSE 109; RESP 16; TEMP 37.1; O2SAT 97
== END 2021-07-14 18:59 | disposition home or self-care (01) ==
PROVIDERS: Emergency Provider Family Medicine; PCP Emergency Medicine
DX: R10.84 Generalized abdominal pain (principal); I16.1 Hypertensive emergency; E66.01 Morbid (severe) obesity due to excess calories; Z68.41 Body mass index [BMI] 40.0-44.9, adult; F17.210 Nicotine dependence, cigarettes, uncomplicated; K21.9 Gastro-esophageal reflux disease without esophagitis; I10 Essential (primary) hypertension; E78.5 Hyperlipidemia, unspecified; I25.2 Old myocardial infarction
CPT/HCPCS: 80053; 83690; 85025; 96374; 99282

== ENCOUNTER → 2021-08-31 21:05 | Outpatient (CLI) | payer MEDICARE, MEDICAID, SELFPAY ==
[2021-08-31 21:25] LABS: Basophils % 0.7 % (0.1-2.0); Eosinophils # 0.2 K/mm3 (0.0-0.4); Eosinophils % 2.8 % (0.1-12.0); Hematocrit 44.5 % (42.0-52.0); Hemoglobin 13.5 g/dL (14.1-18.0); Lymphocytes % 35.7 % (10-50); Mean Corpuscular HGB Conc 30.4 g/dL (31.8-35.4); Mean Corpuscular Hemoglobin 30.7 pg (27.0-31.2); Mean Platelet Volume 10.7 fl (7.4-10.4); Monocytes # 0.5 K/mm3 (0.1-1.0); Monocytes % 8.9 % (1.7-9.3); Neutrophils # 2.9 K/mm3 (1.8-7.8); Neutrophils % 51.9 % (37.0-80.0); Platelet Count 263 K/mm3 (142-424); Red Cell Distribution Width 15.6 % (11.5-17.5); White Blood Count 5.5 K/mm3 (4.8-10.8)
[2021-08-31 22:31] LABS: 25-OH Vitamin D, Total < 12.8 ng/mL (30-100)
[2021-08-31 22:35] LABS: Amphetamine/Metha Screen,Urine Negative ng/ml (<1000); Barbiturates Screen,Urine Negative ng/ml (<200)
[2021-08-31 22:36] LABS: Benzodiazepines Screen,Urine Negative ng/ml (<200); Cannabinoid Screen,Urine Negative ng/ml (<50)
[2021-08-31 22:37] LABS: Cocaine Screen,Urine Negative ng/ml (<300)
[2021-08-31 22:38] LABS: Methadone Screen,Urine Negative ng/ml (<300); Opiate Screen,Urine Negative ng/ml (<300)
[2021-08-31 22:39] LABS: Phencyclidine Screen,Urine Negative ng/ml (<25)
[2021-08-31 22:42] LABS: Chloride 104 mmol/L (98-107); Potassium 4.2 mmoL/L (3.5-5.1); Sodium 140 mmol/L (136-145)
[2021-08-31 22:44] LABS: Blood Urea Nitrogen 24 mg/dl (9-20); Estimated Glomerular Filt Rate 63 ml/min (>60); GFR (African American) 76 ML/MIN (>60)
[2021-08-31 22:45] LABS: Alanine Aminotransferase 20 U/L (12-78); Albumin Level 3.4 g/dl (3.5-5.0); Albumin/Globulin Ratio 1.2 (1.1-1.8); Alkaline Phosphatase 119 U/L (38-126); Anion Gap 12.2 mEq/L (5-15); Aspartate Amino Transferase 34 U/L (17-59); Bilirubin,Total 1.2 mg/dl (0.2-1.3); Carbon Dioxide 28 mmol/L (22.0-30.0); Chol/HDL Ratio 4.9 (1-3.5); Cholesterol 117 mg/dl (140-200); Globulin 2.9 g/dL (1.3-3.2); Glucose 89 mg/dl (74-100); HDL Cholesterol 24 mg/dl (40-60); Total Protein,Serum 6.3 g/dl (6.3-8.2); Triglycerides 103 mg/dl (30-150); VLDL Cholesterol 21 mg/dL (0-40)
[2021-08-31 23:03] LABS: Free T4 (Free Thyroxine) 2.53 ng/dl (0.78-2.19)
[2021-08-31 23:15] LABS: Microalbumin/Creatinine Ratio 150.9
[2021-08-31 23:18] LABS: Direct LDL Cholesterol 75.57 mg/dL (100-129)
[2021-08-31 23:25] LABS: Hemoglobin A1C 8.1 % (4.0-6.0)
[2021-08-31 23:27] LABS: Creatinine,Urine Random 32 mg/dL (Not Estab.)
== END ==
PROVIDERS: Visit Provider Emergency Medicine
DX: E11.9 Type 2 diabetes mellitus without complications (principal); Z79.899 Other long term (current) drug therapy; E55.9 Vitamin D deficiency, unspecified; Z79.4 Long term (current) use of insulin
CPT/HCPCS: 80053; 80061; 80305; 82043; 82306; 82570; 83036; 84439; 85025

== ENCOUNTER 2021-09-19 10:52 | Emergency (ER) | payer MEDICARE, MEDICAID, SELFPAY ==
[2021-09-19] VITALS (10 sets, daily range): BP systolic 116–142; BP diastolic 77–107; PULSE 94–111; RESP 16–22; TEMP 36.7–36.8; O2SAT 96–100; BMI 43.1
--- NOTE | 2021-09-19 11:15 | ECG_ITS ---
APPROVED REPORT Exam: Resting ECG HR:96 bpm ECG Measurements Heart Rate 96 AXES QRSd 106 QRS 123 QT 378 T 17 QTc 477 Conclusion Atrial fibrillation with premature ventricular or aberrantly conducted complexes Lateral infarct, age undetermined Inferior infarct, age undetermined Abnormal ECG Electronically signed by : Epi Sparks MD 09/21/2021 14:25:22
--- NOTE | 2021-09-19 11:35 | XR_ITS ---
PROCEDURE INFORMATION: Exam: XR Chest Exam date and time: 09/19/2021 11:35 AM Age: 56 years old Clinical indication: Shortness of breath; Prior surgery; Additional info: SOB TECHNIQUE: Imaging protocol: XR of the chest. Views: 1 view. COMPARISON: CR XR CHEST PORTABLE 07/05/2021 2:18 PM FINDINGS: Tubes, catheters and devices: Pacer stable. Lungs: Pulmonary vascular congestion. No focal consolidation. Pleural spaces: Unremarkable. No pleural effusion. No pneumothorax. Heart/Mediastinum: Stable cardiomegaly. Bones/joints: Unremarkable. IMPRESSION: 1. Stable cardiomegaly. 2. Pulmonary vascular congestion.
[2021-09-19 11:56] LABS: Coronavirus 19, PCR Not Detected (NotDetected); Influenza A, PCR Not Detected (NotDetected); Influenza B, PCR Not Detected (NotDetected)
[2021-09-19 11:58] LABS: Basophils # 0.1 K/mm3 (0-0.2); Basophils % 0.9 % (0.1-2.0); Eosinophils # 0.2 K/mm3 (0.0-0.4); Eosinophils % 3.1 % (0.1-12.0); Hematocrit 40.8 % (42.0-52.0); Hemoglobin 13.3 g/dL (14.1-18.0); Lymphocytes # 1.9 K/mm3 (0.7-4.5); Lymphocytes % 34.7 % (10-50); Mean Corpuscular HGB Conc 32.5 g/dL (31.8-35.4); Mean Corpuscular Hemoglobin 31.1 pg (27.0-31.2); Mean Corpuscular Volume 95.5 fl (80-94); Mean Platelet Volume 9.3 fl (7.4-10.4); Monocytes # 0.5 K/mm3 (0.1-1.0); Monocytes % 8.4 % (1.7-9.3); Neutrophils # 2.9 K/mm3 (1.8-7.8); Neutrophils % 52.8 % (37.0-80.0); Platelet Count 223 K/mm3 (142-424); Red Blood Count 4.28 M/mm3 (4.60-6.20); Red Cell Distribution Width 16.2 % (11.5-17.5); White Blood Count 5.5 K/mm3 (4.8-10.8)
[2021-09-19 12:03] LABS: Chloride 104 mmol/L (98-107); Potassium 3.4 mmoL/L (3.5-5.1); Sodium 142 mmol/L (136-145)
[2021-09-19 12:06] LABS: Alanine Aminotransferase 11 U/L (12-78); Albumin Level 3.4 g/dl (3.5-5.0); Albumin/Globulin Ratio 1.1 (1.1-1.8); Alkaline Phosphatase 83 U/L (38-126); Anion Gap 8.4 mEq/L (5-15); Aspartate Amino Transferase 36 U/L (17-59); Bilirubin,Total 1.5 mg/dl (0.2-1.3); Blood Urea Nitrogen 31 mg/dl (9-20); Calcium 8.8 mg/dl (8.4-10.2); Carbon Dioxide 33 mmol/L (22.0-30.0); Creatinine Clearance Estimated 40 mL/min (50-200); Estimated Glomerular Filt Rate 39 ml/min (>60); GFR (African American) 48 ML/MIN (>60); Lipase 174 U/L (23-300); Total Protein,Serum 6.4 g/dl (6.3-8.2)
--- NOTE | 2021-09-19 12:13 | PC.NURSE ---
aware of critical glucose reading
[2021-09-19 12:14] LABS: Glucose 49 mg/dl (74-100)
[2021-09-19 12:19] LABS: Troponin I < 0.01 ng/ml (0.00-0.034)
[2021-09-19 13:08] LABS: POC Glucose,Bedside 74 (70-110)
--- NOTE | 2021-09-19 13:14 | HMH.EDGENADL ---
ED Disposition Clinical Impression: Chronic abdominal pain, A-fib Disposition: Home, Self-Care Condition on Discharge: Good Additional Instructions: Home medication as directed. Follow with PCP on Tuesday. Return to emergency for chest pain, shortness of breath. Referrals: Morro Fortune MD [Primary Care Provider] - 3 days Time of Disposition: 15:06 - Critical Care Critical Care Time: No Attestation: On 09/19/21, the high probability of a clinically significant, sudden or life threatening deterioration of the following system(s) required my full and direct attention, intervention and personal management. The time I documented below is in addition to time spent performing reported procedures but includes the following listed in this critical care notation. Medical Decision Making - Medical Records Medical records reviewed: Yes: I reviewed the patient's medical records. - Marcial Inquiry Pt receiving controlled substance: No Vital Signs: 09/19/21 11:04 09/19/21 11:16 09/19/21 11:51 Temperature 98.3 F Temperature Source Oral Pulse Rate 110 H 94 H Pulse Rate [Right Brachial] 109 H Respiratory Rate 22 Blood Pressure 128/96 H 135/91 H Blood Pressure [Right Arm] 128/96 H Blood Pressure Mean [Right Arm] 106 Blood Pressure Source [Right Arm] Automatic Cuff Blood Pressure Position [Right Arm] Sitting 02 Sat by Pulse Oximetry 100 98 98 Oxygen Delivery Method Room Air 09/19/21 12:35 09/19/21 13:00 Temperature Temperature Source Pulse Rate 109 H 106 H Pulse Rate [Right Brachial] Respiratory Rate Blood Pressure 128/107 H 139/107 H Blood Pressure [Right Arm] Blood Pressure Mean [Right Arm] Blood Pressure Source [Right Arm] Blood Pressure Position [Right Arm] 02 Sat by Pulse Oximetry 98 98 Oxygen Delivery Method - Lab Data Lab results reviewed: Yes: I reviewed the patient's lab results. Lab Results 09/19/21 11:45: WBC 5.5, RBC 4.28 L, Hgb 13.3 L, Hct 40.8 L, MCV 95.5 H, MCH 31.1, MCHC 32.5, RDW 16.2, Plt Count 223, MPV 9.3, Neut % (Auto) 52.8, Lymph % (Auto) 34.7, [place] % (Auto) 8.4, Eos % (Auto) 3.1, Baso % (Auto) 0.9, Neut # (Auto) 2.9, Lymph # (Auto) 1.9, [place] # (Auto) 0.5, Eos # (Auto) 0.2, Baso # (Auto) 0.1 09/19/21 11:45: Sodium 142, Potassium 3.4 L, Chloride 104, Carbon Dioxide 33 H, Anion Gap 8.4, BUN 31 H, Creatinine 1.80 H, Estimated Creat Clear 40, Estimated GFR 39 L, Est GFR ( Amer) 48 L, Glucose 49 L, Calcium 8.8, Total Bilirubin 1.5 H, AST 36, ALT 11 L, Alkaline Phosphatase 83, Troponin I < 0.01, Total Protein 6.4, Albumin 3.4 L, Globulin 3.0, Albumin/Globulin Ratio 1.1, Lipase 174 09/19/21 11:48: SARS-CoV-2 (PCR) Not detected, Influenza A Untype (PCR) Not detected, Influenza Type B (PCR) Not detected 09/19/21 13:02: POC Glucose 74 Result diagrams: 09/19/21 11:45 09/19/21 11:45 Orders (Tests/Meds): ED MEDICATIONS Discontinued Medications Generic Name Dose Route Start Last Admin Trade Name Freq PRN Reason Stop Dose Admin Lactated Ringer's 1,000 mls @ 999 mls/hr 09/19/21 13:00 09/19/21 14:16 Lactated Ringer's 1000 Ml Bag IV 09/19/21 13:30 Not Given .Q1H1M [facility] Lactated Ringer's 500 mls @ 999 mls/hr 09/19/21 14:15 09/19/21 14:16 Lactated Ringer's 1000 Ml Bag IV 09/19/21 14:45 999 mls/hr .Q31M [facility] Administration - Radiology Data #1 Image(s): Chest Image Reviewed: Yes I reviewed the patient's radiology results Preliminary Findings: Abnormal 1. Stable cardiomegaly. 2. Pulmonary vascular congestion. - ECG Data Tracing #1 I reviewed this ECG and interpreted as documented below: A. fib with PVC. [address] elevation or depression ECG initial impression date: 09/19/21 ECG initial impression time: 11:16 Medical Decision Narrative: 56yo M presents the emergency department secondary to chronic belly pain and acute shortness of breath. He states his chronic abdominal pain is no different than his u
== END 2021-09-19 15:30 | disposition home or self-care (01) ==
PROVIDERS: Emergency Provider Family Medicine; PCP Emergency Medicine
DX: R10.84 Generalized abdominal pain (principal); I48.0 Paroxysmal atrial fibrillation; I10 Essential (primary) hypertension; E78.5 Hyperlipidemia, unspecified; J44.9 Chronic obstructive pulmonary disease, unspecified; K21.9 Gastro-esophageal reflux disease without esophagitis; E11.9 Type 2 diabetes mellitus without complications; F17.210 Nicotine dependence, cigarettes, uncomplicated; Z79.899 Other long term (current) drug therapy
CPT/HCPCS: 71045; 80053; 82962; 83690; 84484; 85025; 93005; 96365; 99283; C9803; J2405; U0003; U0005

== ENCOUNTER → 2021-09-24 11:08 | Outpatient (CLI) | payer MEDICARE, MEDICAID, SELFPAY ==
--- NOTE | 2021-09-24 11:09 | US_ITS ---
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 Velasco RVT Indications Claudication: Bilaterally Rest Pain: Bilaterally Edema Current Smoker CLAUDICATION,LE EDEMA,ALL TOES ON LT FOOT EXCEPT 4TH DIGIT HAS BEEN AMPUTATED Risk Factors Hypertension CAD Hyperlipidemia Obesity Cardiac Disease Diabetes Current Smoker Pressures/Indices Right Indices Left Indices Brachial 142.00 mmHg Brachial 142.00 mmHg Low Thigh 138.00 mmHg 0.97 Low Thigh 134.00 mmHg 0.94 Calf 122.00 mmHg 0.86 Calf 136.00 mmHg 0.96 Ankle(PT) 144.00 mmHg 1.01 Ankle(PT) 143.00 mmHg 1.01 Ankle(DP) 144.00 mmHg 1.01 Ankle(DP) 153.00 mmHg 1.08 Digit 80.00 mmHg 0.56 Digit Findings RT JOSELYN:1.01 LT JOSELYN:1.08 RT TBI:0.56 LT TBI:UNABLE TO OBTAIN DAMPANED PULSES BILATERAL DAMPANED WAVEFORMS AT ALL LEVELS Conclusion RT JOSELYN:1.01 LT JOSELYN:1.08 Normal JOSELYN's RT TBI:0.56 LT TBI:UNABLE TO OBTAIN DAMPANED PULSES BILATERAL DAMPANED WAVEFORMS AT ALL LEVELS Electronically signed by : Damián Li MD 09/24/2021 17:16:50
== END ==
PROVIDERS: PCP Emergency Medicine; Visit Provider Physician Assistant
DX: I73.9 Peripheral vascular disease, unspecified (principal); M79.604 Pain in right leg; M79.605 Pain in left leg; R20.0 Anesthesia of skin
CPT/HCPCS: 93923

== ENCOUNTER 2021-10-18 20:13 | Emergency (ER) | payer MEDICARE, MEDICAID, SELFPAY ==
[2021-10-18 20:14] VITALS: BP 155/92; PULSE 116; RESP 19; TEMP 36.6; O2SAT 96; BMI 41.5
--- NOTE | 2021-10-18 20:46 | HMH.EDGENADL ---
ED Disposition Clinical Impression: PVD (peripheral vascular disease), Lumbosacral radiculopathy due to degenerative joint disease of spine Disposition: Home, Self-Care Condition on Discharge: Good Instructions: DI for Chronic Pain -- Adult Additional Instructions: see card in am and pcp for follow up Referrals: Morro Fortune MD [Primary Care Provider] - - Critical Care Critical Care Time: No Attestation: On 10/18/21, the high probability of a clinically significant, sudden or life threatening deterioration of the following system(s) required my full and direct attention, intervention and personal management. The time I documented below is in addition to time spent performing reported procedures but includes the following listed in this critical care notation. Medical Decision Making - Medical Records Medical records reviewed: Yes: I reviewed the patient's medical records. - Marcial Inquiry Pt receiving controlled substance: No Vital Signs: 10/18/21 20:14 Temperature 97.8 F Temperature Source Oral Pulse Rate [Right] 116 H Respiratory Rate 19 Blood Pressure [Right Arm] 155/92 H Blood Pressure Mean [Right Arm] 113 02 Sat by Pulse Oximetry 96 Oxygen Delivery Method Room Air - Lab Data Lab results reviewed: Yes: I reviewed the patient's lab results. Medical Decision Narrative: has a mixture of pvd and neurogenic claudication - will need to see pcp and card and needs current mri back General Adult HPI - General Chief complaint: PAIN Stated complaint: lower back and leg pain Time Seen by Provider: 10/18/21 20:46 Mode of Arrival: Family Vehicle Source of Information: Patient, Medical Record (c) Limitations: No Limitations Description of Symptoms (Recalled from ER Triage Doc. by RN): Pt c/o bilateral leg pain through-out from thighs to feet. Pt states it is a chronic problem that has worsened greatly over the last 3 days. Pt describes pain as sharp needles stabbing me and 10/10. Pt does take daily pain medication and gabapentin. Pulses 2+. No trauma or falls. - History of Present Illness HPI narrative: back pain to lower ext worse with ambulation- hx of neurogenic claudication and has hx of pvd and is seeing card - worse sx over the last 3 days - no fever or rash and no cauda equina sx Onset (ago): day(s) Location: back, lower extremity Radiation: extremity Severity: moderate Associated symptoms: denies other symptoms Treatments prior to arrival: none - Related Data Home Medications Medication Instructions Recorded Confirmed buspirone 10 mg tablet 10 mg PO DAILY tab 07/18/20 09/19/21 omeprazole 20 mg capsule,delayed 40 mg PO DAILY cap 09/23/20 09/19/21 release buPROPion HCL [Wellbutrin SR 75mg 75 mg PO BID 05/27/21 09/19/21 Tablet] carvedilol 25 mg tablet 37.5 mg PO BID tab 06/09/21 09/19/21 Digoxin 125 mcg PO DAILY 06/27/21 09/19/21 furosemide 80 mg tablet 80 mg PO DAILY tab 08/24/21 09/19/21 Fenofibrate,Micronized [Tricor 134 mg PO DAILY 09/19/21 09/19/21 134mg] Rivaroxaban [Xarelto] See Rx Instructions .ROUTE .COMPLEX 09/19/21 09/19/21 Sacubitril/Valsartan [Entresto] See Rx Instructions .ROUTE .COMPLEX 09/19/21 09/19/21 Torsemide 100 mg PO DAILY 09/19/21 09/19/21 Previous Rx's Medication Instructions Recorded aspirin 81 mg tablet,delayed 81 mg PO DAILY #90 tab 06/01/21 release ropinirole 1 mg tablet 1 mg PO BID #60 tab 06/09/21 gabapentin 800 mg tablet 800 mg PO TID #90 tab 08/31/21 oxycodone-acetaminophen 10 mg-325 1 tab PO QID PRN #120 tab 08/31/21 mg tablet blood sugar diagnostic See Rx Instructions .ROUTE #100 10/02/21 each insulin aspar prot-insulin aspart See Rx Instructions .ROUTE 10/15/21 100 unit/mL (70-30) subcutaneous .COMPLEX #30 milliliter pen Allergies Allergy/AdvReac Type Severity Reaction Status Date / Time No Known Allergies Allergy Verified 09/19/21 11:02 [facility] History - Hepatitis A Screen Drug use history?: Yes
[2021-10-18 21:15] VITALS: BP 177/98; PULSE 101; RESP 20; TEMP 36.6; O2SAT 97
== END 2021-10-18 21:33 | disposition home or self-care (01) ==
PROVIDERS: Emergency Provider Emergency Medicine; PCP Emergency Medicine
DX: M79.604 Pain in right leg (principal); M79.605 Pain in left leg; I48.0 Paroxysmal atrial fibrillation; E11.9 Type 2 diabetes mellitus without complications; K21.9 Gastro-esophageal reflux disease without esophagitis; I10 Essential (primary) hypertension; J44.9 Chronic obstructive pulmonary disease, unspecified; E78.5 Hyperlipidemia, unspecified; I25.2 Old myocardial infarction; Z79.899 Other long term (current) drug therapy; F17.210 Nicotine dependence, cigarettes, uncomplicated
CPT/HCPCS: 96372; 99281

== ENCOUNTER → 2021-10-20 15:52 | Outpatient (CLI) | payer MEDICARE, MEDICAID, SELFPAY ==
[2021-10-20 16:27] LABS: Basophils # 0.1 K/mm3 (0-0.2); Basophils % 1.4 % (0.1-2.0); Eosinophils # 0.2 K/mm3 (0.0-0.4); Eosinophils % 3.3 % (0.1-12.0); Hematocrit 47.4 % (42.0-52.0); Hemoglobin 14.8 g/dL (14.1-18.0); Lymphocytes # 1.9 K/mm3 (0.7-4.5); Lymphocytes % 28.6 % (10-50); Mean Corpuscular HGB Conc 31.3 g/dL (31.8-35.4); Mean Corpuscular Hemoglobin 30.9 pg (27.0-31.2); Mean Corpuscular Volume 98.8 fl (80-94); Mean Platelet Volume 9.3 fl (7.4-10.4); Monocytes # 0.5 K/mm3 (0.1-1.0); Monocytes % 7.7 % (1.7-9.3); Neutrophils # 3.9 K/mm3 (1.8-7.8); Platelet Count 293 K/mm3 (142-424); Red Cell Distribution Width 16.4 % (11.5-17.5); White Blood Count 6.6 K/mm3 (4.8-10.8)
[2021-10-20 17:27] LABS: Anion Gap 14.1 mEq/L (5-15); Blood Urea Nitrogen 31 mg/dl (9-20); Calcium 9.6 mg/dl (8.4-10.2); Carbon Dioxide 27 mmol/L (22.0-30.0); Chloride 102 mmol/L (98-107); Estimated Glomerular Filt Rate 57 ml/min (>60); GFR (African American) 69 ML/MIN (>60); Glucose 300 mg/dl (74-100); Potassium 4.1 mmoL/L (3.5-5.1); Sodium 139 mmol/L (136-145)
== END ==
PROVIDERS: Visit Provider Urology
DX: E78.5 Hyperlipidemia, unspecified; I25.5 Ischemic cardiomyopathy; I48.91 Unspecified atrial fibrillation; I50.20 Unspecified systolic (congestive) heart failure; I73.9 Peripheral vascular disease, unspecified; J44.9 Chronic obstructive pulmonary disease, unspecified; M79.604 Pain in right leg; M79.605 Pain in left leg; R06.02 Shortness of breath; R60.9 Edema, unspecified; R94.31 Abnormal electrocardiogram [ECG] [EKG]; Z72.0 Tobacco use; Z95.810 Presence of automatic (implantable) cardiac defibrillator; Z01.812 Encounter for preprocedural laboratory examination; Z11.52 Encounter for screening for COVID-19
CPT/HCPCS: 36415; 80048; 85025; C9803; U0003; U0005

== ENCOUNTER 2021-10-21 08:43 | Day surgery (SDC) | payer MEDICARE, MEDICAID, SELFPAY ==
[2021-10-21] VITALS (12 sets, daily range): BP systolic 102–175; BP diastolic 69–101; PULSE 119–126; RESP 13–18; O2SAT 94–95; BMI 39.2
--- NOTE | 2021-10-21 07:00 | IR_ITS ---
APPROVED REPORT Patient Location: Outpatient Health And Safety Tech: JULIETA Chow RT (R) PROCEDURES Catheter placement in the left superficial femoral artery Left superficial femoral artery antegrade angiogram with unilateral runoff to the left foot Self-expanding stent deployment to the left popliteal artery INDICATION [place] claudication class III, Peripheral artery disease, Hemodynamically significant dissection involving the left superficial femoral artery/left popliteal artery Informed consent was obtained prior to the procedure. COMPLICATIONS None Estimated Blood Loss: Less than 10 mls TECHNIQUE 1% lidocaine used anesthetize right groin the right femoral was accessed via the Salinger technique and a 5 [place] sheath was placed in the right femoral artery. A rim catheter was placed in the left common iliac artery under fluoroscopic guidance and an advantage wire was then used to traverse the iliofemoral vessels with the distal tip residing in the popliteal artery. A rim catheter was then advanced down into the left superficial femoral artery where left superficial femoral artery antegrade angiography was performed with unilateral runoff to the left foot. Following this therapeutic heparin was administered giving a therapeutic ACT and the 5 [place] sheath was exchanged for a 45 cm 6 [place] destination sheath. Following this a 6 mm x 40 mm self-expanding EV 3 stent was deployed followed by a 5 mm x 40 mm balloon angioplasty within the stent the post dilate. The balloon was taken at 20 yuri. Following this a 6 mm x 40 mm balloon was placed back inside the stent and postdilated at 20 yuri to further post dilate the distal and proximal portion of the stents followed by further post dilatation within the stent. After achieving excellent angiograph results the apparatus was removed the groin was reprepped closure change sheath was removed and hemostasis was achieved using Perclose device patient was transferred to the postop putting in stable condition ANGIOGRAPHIC RESULTS Left superficial femoral artery has diffuse moderate atheromatous disease. At [facility] there is a greater than 80% dissection flap which is calcified. The popliteal artery then has additional 40 and 50% stenoses. The left anterior tibialis artery posterior tibialis artery are ostially occluded. The left peroneal artery is patent in its proximal portion and then occludes. 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 Dual antiplatelet therapy 2. Immediate avoidance of tobacco products 3. Aggressive risk factor modification 4. Physical therapy 5. LDL less than 55 Electronically signed by : Gui Mayfield MD 10/21/2021 12:25:24
[2021-10-21 14:41] LABS: CATHL Activated Clotting Time 295 SEC (74-125)
--- NOTE | 2021-10-21 15:07 | HMH.PHACLD ---
Marquez Reeves has received discharge medication counseling on the following medications: ASPIRIN PLAVIX FENOFIBRATE IN PLACE OF STATIN PATIENT HAD PERIPHERAL STENT, ALCIRA/ARB AND BETA ALEX NOT INDICATED. PATIENT VERBALIZED UNDERSTANDING AND HAD NO QUESTIONS AT THIS TIME. -SUJATHA VAZQUEZ, PHARMD
== END 2021-10-21 14:57 | disposition home or self-care (01) ==
LOC: CATHLAB 08:44
PROVIDERS: PCP Emergency Medicine; Visit Provider Internal Medicine
DX: I70.213 Atherosclerosis of native arteries of extremities with intermittent claudication, bilateral legs; I77.1 Stricture of artery; I25.10 Atherosclerotic heart disease of native coronary artery without angina pectoris; I48.91 Unspecified atrial fibrillation; I25.5 Ischemic cardiomyopathy; I11.0 Hypertensive heart disease with heart failure; E11.9 Type 2 diabetes mellitus without complications; E78.5 Hyperlipidemia, unspecified; G25.81 Restless legs syndrome; G47.33 Obstructive sleep apnea (adult) (pediatric); E66.9 Obesity, unspecified; I50.20 Unspecified systolic (congestive) heart failure; I73.9 Peripheral vascular disease, unspecified; J44.9 Chronic obstructive pulmonary disease, unspecified; M79.604 Pain in right leg; M79.605 Pain in left leg; R60.9 Edema, unspecified; R94.31 Abnormal electrocardiogram [ECG] [EKG]; Z72.0 Tobacco use; Z95.810 Presence of automatic (implantable) cardiac defibrillator
CPT/HCPCS: 37226; 85347; 99152; 99153; C1725; C1760; C1766; C1876; C1894; J1644; Q9966

== ENCOUNTER → 2021-11-18 17:51 | Outpatient (CLI) | payer MEDICARE, MEDICAID, SELFPAY ==
[2021-11-18 18:37] LABS: Amphetamine/Metha Screen,Urine Negative ng/ml (<1000); Barbiturates Screen,Urine Negative ng/ml (<200)
[2021-11-18 18:38] LABS: Benzodiazepines Screen,Urine Negative ng/ml (<200); Cannabinoid Screen,Urine Negative ng/ml (<50)
[2021-11-18 18:39] LABS: Cocaine Screen,Urine Negative ng/ml (<300)
[2021-11-18 18:40] LABS: Methadone Screen,Urine Negative ng/ml (<300)
[2021-11-18 18:41] LABS: Opiate Screen,Urine Negative ng/ml (<300); Phencyclidine Screen,Urine Negative ng/ml (<25)
== END ==
PROVIDERS: Visit Provider Emergency Medicine
DX: T40.601A Poisoning by unspecified narcotics, accidental (unintentional), initial encounter (principal); Z79.899 Other long term (current) drug therapy
CPT/HCPCS: 80305

== ENCOUNTER → 2022-01-13 18:58 | Outpatient (CLI) | payer MEDICARE, MEDICAID, SELFPAY ==
[2022-01-13 21:36] LABS: Amphetamine/Metha Screen,Urine Negative ng/ml (<1000); Barbiturates Screen,Urine Negative ng/ml (<200)
[2022-01-13 21:37] LABS: Benzodiazepines Screen,Urine Negative ng/ml (<200); Cannabinoid Screen,Urine Negative ng/ml (<50)
[2022-01-13 21:38] LABS: Cocaine Screen,Urine Negative ng/ml (<300)
[2022-01-13 21:39] LABS: Methadone Screen,Urine Negative ng/ml (<300); Opiate Screen,Urine Negative ng/ml (<300)
[2022-01-13 21:41] LABS: Phencyclidine Screen,Urine Negative ng/ml (<25)
== END ==
PROVIDERS: Visit Provider Emergency Medicine
DX: T40.601A Poisoning by unspecified narcotics, accidental (unintentional), initial encounter (principal); T14.8XXA Other injury of unspecified body region, initial encounter; L98.9 Disorder of the skin and subcutaneous tissue, unspecified; B95.8 Unspecified staphylococcus as the cause of diseases classified elsewhere
CPT/HCPCS: 80305; 87070; 87077; 87186; 87205

== ENCOUNTER 2022-02-15 17:29 | Emergency (ER) | payer MEDICARE, MEDICAID, SELFPAY ==
--- NOTE | 2022-02-15 17:18 | ECG_ITS ---
APPROVED REPORT Exam: Resting ECG HR:77 bpm ECG Measurements Heart Rate 77 AXES SC 162 P -78 QRSd 109 QRS 62 QT 361 T 93 QTc 393 Conclusion ELECTRONIC ATRIAL PACEMAKER NONSPECIFIC ST & T-WAVE ABNORMALITY ABNORMAL RHYTHM ECG INTERPRETATION BASED ON A DEFAULT AGE OF 41 YEARS UNCONFIRMED REPORT Electronically signed by : Epi Sparks MD 02/18/2022 08:08:22
--- NOTE | 2022-02-15 17:20 | PC.NURSE ---
pt family at BS
[2022-02-15 19:06] LABS: ABG HCO3 22.9 mmhg (22.0-26.0); ABG PH 7.21 mmol/L (7.35-7.45); ABG TCO2 24.7 mmhg (23-27); Allen's Test Non Applicable; Oxygen 100 %; Source Right Femoral
[2022-02-15 19:08] LABS: ABG PCO2 58.1 mmhg (35.0-45.0); ABG PO2 15.2 mmhg (80-100)
--- NOTE | 2022-02-15 19:38 | HMH.EDGENADL ---
ED Disposition Clinical Impression: Cardiac arrest Disposition: Condition on Discharge: Referrals: Morro Fortune MD [Primary Care Provider] - - Critical Care Critical Care Time: Yes Attestation: On 02/15/22, the high probability of a clinically significant, sudden or life threatening deterioration of the following system(s) required my full and direct attention, intervention and personal management. The time I documented below is in addition to time spent performing reported procedures but includes the following listed in this critical care notation. Total Critical Care Time: 60 Vital system(s) involved:: Circulatory Failure, Central Nervous System, Metabolic Failure, Respiratory Failure, Shock (Hemorrhage), Shock (Septic) My critical care processes included: Assessment & monitoring of V/S, Initial and Re-exams, Data Review/Interpretation, Coordinating Care, Medication Orders and management, Documentation Medical Decision Making - Marcial Inquiry Pt receiving controlled substance: No Vital Signs: 02/15/22 20:10 Temperature 0 F L Pulse Rate 0 L Respiratory Rate 0 L Blood Pressure 0/0 L - Lab Data Lab Results 02/15/22 17:00: Specimen Source Right femoral, O2 % 100, ABG pH 7.21 L*, ABG pCO2 58.1 H, ABG pO2 15.2 L, ABG HCO3 22.9, ABG Total CO2 24.7, ABG Base Excess -5.0 L, Damián Test Non applicable Orders (Tests/Meds): ORDERS Category Date Time Status Arterial Blood Gas Routine RT 02/15/22 17:00 Results Medical Decision Narrative: Patient arrived unresponsive and acute distress is a CODE BLUE. Patient was intubated on arrival to the emergency department. Additionally, on arrival, patient had a glucose of 55, corrected. Patient underwent multiple rounds of CPR and given multiple rounds of epinephrine with 1 achievement of ROSC, lost pulses shortly thereafter. Bedside echo of heart shows very poor squeeze and not perfusing rhythm. Family states patient had chronic heart condition and poor function, had AICD placed. Unable to successfully resuscitate. Given prolonged resuscitative efforts without success, time of was called. General Adult HPI - General Stated complaint: Code Blue Time Seen by Provider: 02/15/22 17:30 - History of Present Illness HPI narrative: Arrived via EMS as a CODE BLUE. Patient was a witnessed arrest, no initial on scene rhythm was obtained. CPR in progress approximately 20 to 30 minutes prior to arrival. Patient is not intubated. - Related Data Previous Rx's Medication Instructions Recorded aspirin 81 mg tablet,delayed 81 mg PO DAILY #90 tab 10/19/21 release blood sugar diagnostic See Rx Instructions .ROUTE #100 10/19/21 each carvedilol 25 mg tablet 50 mg PO BID #120 tab 10/19/21 oxycodone-acetaminophen 10 mg-325 1 tab PO Q4-6H PRN #20 tab 10/21/21 mg tablet torsemide 100 mg tablet 100 mg PO DAILY #30 tab 10/22/21 hydrocortisone 2.5 % topical cream 1 applic TOPICAL DAILY PRN #15 g 11/18/21 insulin lispro protamine-lispro See Rx Instructions .ROUTE 01/07/22 100 unit/mL (75-25) subcutaneous .COMPLEX #30 ml pen cefdinir 300 mg capsule 300 mg PO BID 10 Days #20 cap 01/13/22 clindamycin HCl 300 mg capsule 300 mg PO TID 10 Days #30 cap 01/13/22 digoxin 125 mcg (0.125 mg) tablet 125 mcg PO DAILY #90 tab 01/13/22 fenofibrate micronized 134 mg 134 mg PO DAILY #90 cap 01/13/22 capsule gabapentin 800 mg tablet 800 mg PO TID #90 tab 01/13/22 lidocaine 5 % topical patch 1 patch TOPICAL DAILY #30 each 01/13/22 mupirocin 2 % topical ointment 1 applic TOPICAL BID 10 Days #22 g 01/13/22 omeprazole 20 mg capsule,delayed 40 mg PO DAILY #60 cap 01/13/22 release oxycodone-acetaminophen 10 mg-325 1 tab PO QID #120 tab 01/13/22 mg tablet rivaroxaban 20 mg tablet 20 mg PO DAILY #30 tab 01/13/22 sacubitril 24 mg-valsartan 26 mg 1 tab PO BID #60 tab 01/13/22 tablet bupropion HCl 75 mg tablet See Rx Instructions .ROUTE 02/05/22 .COMPLEX #6
[2022-02-15 19:56] VITALS: BMI 38.0
--- NOTE | 2022-02-15 19:58 | PC.NURSE ---
Pt arrived with ACLS measures in progress per EMS, pt had went down in front of his apartment. Family witnessed him go down. See below for timeline of events for Code events 1647-20 g left upper arm established/ PEA on monitor no pulse 1649- asystole/ no pulse 1650- 1mg of epi 1651-calcium given/fluids hung 1652-PEA/CPR progress 1654-PEA/CPR resumed 1mg of epi 1656-Intubated with 7.5 ET tube, 22 @ lip, visualized tube through cords, color change with CO2 and equal bilateral breath sounds 1656-PEA/ CPR resumed 1657-Amp of bicarb given 1659-PEA/CPR resumed 1mg EPi 1700-calcium given 1701-PEA/1mg of epi given/ CPR resumed 1703-PEA/ 1 mg of epi/ CPR resumed 1705-PEA 1707-PEA/CPR resumed/ 1mg of epi 1709-PEA/no cardiac activity on US 1716-pulse of 60 1719-pt lost pulse/ CPR resumed/ 2 brothers at bedside is speaking with them at this time and explaining what is going on with patient. 1721-CPR/PEA/1mg epi 1723-PEA/No pulse 1725-PEA/no pulse 1725-TOD 1745-Family at bedside, explained to family to take as much time as they needed. Courtesy cart provided. 181-Contacted [facility], pt ruled out. 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
[2022-02-15 20:10] VITALS: BP 0/0; PULSE 0; RESP 0; TEMP -17.7; TEMP 0; O2SAT 0
== END 2022-02-15 20:53 | disposition expired ==
PROVIDERS: Emergency Provider Emergency Medicine; PCP Emergency Medicine
DX: I46.9 Cardiac arrest, cause unspecified (principal); I48.0 Paroxysmal atrial fibrillation; E11.9 Type 2 diabetes mellitus without complications; K21.9 Gastro-esophageal reflux disease without esophagitis; E78.5 Hyperlipidemia, unspecified; I10 Essential (primary) hypertension; Z95.0 Presence of cardiac pacemaker; I50.9 Heart failure, unspecified; J44.9 Chronic obstructive pulmonary disease, unspecified; F17.210 Nicotine dependence, cigarettes, uncomplicated
CPT/HCPCS: 82803; 92950; 93005; 96375; 99291